=== PATIENT | male | born 1935 | race Caucasian/White ===

== ENCOUNTER 2019-10-03 17:25 | Emergency (ER) | payer MEDICARE, SELFPAY ==
[2019-10-03 17:29] VITALS: BP 124/77; PULSE 91; RESP 18; TEMP 36.2; O2SAT 94; BMI 34.8
--- NOTE | 2019-10-03 17:43 | W.ED.NEUROSD ---
HPI - Neuro Symptoms/Deficit General: Chief Complaint: Neuro Symptoms/Deficit Stated Complaint: eye problems Time Seen by Provider: 10/03/19 17:33 Source: patient History of Present Illness: HPI Narrative: 84-year-old with left-sided facial droop. States that his face looked normal last night. He also tells me that he had the same thing Tuesday but it went away on its own. Denies any confusion difficulty with his gait, weakness or numbness in his extremities. Denies having had a stroke in the past. Associated symptoms: Deny chest pain, headache(s), nausea or vomiting Review of Systems General: Reports: 10 or more systems reviewed and unremarkable except in HPI and below Const: Denies: fever(s) or chills Eyes: Denies: change in vision ENMT: Denies: throat pain Card: Denies: chest pain Resp: Denies: dyspnea GI: Denies: abdominal pain, nausea, vomiting or change in bowel habits Musc: Denies: muscle weakness Skin/Breast: Denies: rash Neuro: Denies: headache(s), lack of coordination, dizziness or Slurred speech present Psych: Denies: hopelessness or suicidal ideation Endo: Denies: polyuria Tam/Lymph: Denies: easy bruising or easy bleeding All/Imm: Denies: urticaria Physical Exam Const: COMMON NORMALS: no acute distress, patient oriented x3, alert and well nourished HENMT: COMMON NORMALS: normocephalic and Normal external nose present HEAD & SCALP: normocephalic NOSE: Normal external nose present MOUTH: no trismus Eye: COMMON NORMALS: EOMs intact bilaterally and conjunctivae normal CONJUNCTIVA: Yes conjunctivae normal Neck/C-Spine: COMMON NORMALS: full ROM, no lymphadenopathy and supple CERVICAL SPINE: Yes cervical ROM normal Lymph: LYMPHATIC: no lymphadenopathy noted Resp: COMMON NORMALS: normal respiratory effort, No retractions, No use of accessory muscles and clear to auscultation bilaterally EFFORT & INSPECTION: Yes able to speak in complete sentences AUSCULTATION: clear to auscultation bilaterally Cardio: COMMON NORMALS: regular rate and regular rhythm RATE: regular rate RHYTHM: regular rhythm GI: COMMON NORMALS: Normal to inspection, nondistended, normoactive bowel sounds present, Soft to palpation, non-tender and no masses INSPECTION: Yes normal to inspection AUSCULTATION: Yes normoactive bowel sounds PALPATION: Yes Soft to palpation, No Guarding due to palpation present (GI) and No Rigid due to palpation Back/Pelvis: OTHER: Normal range of motion Extremity: GENERAL: Yes normal exam except as noted Neuro: COMMON NORMALS: patient oriented x3 SENSORIUM/ORIENTATION: Yes alert SPEECH: speech normal GAIT: Yes Normal gait present MOTOR EXAM: 5/5 motor strength present throughout and Pronator motor function not present OTHER: left sided facial droop with ectropion. forehead also affected with the facial droop Psych: COMMON NORMALS: mental status grossly normal Skin: COMMON NORMALS: no rashes or lesions noted GENERAL SKIN EXAM: no rashes or lesions noted Course Vital Signs: Vital signs: Vital Signs Temperature 97.2 F L 10/03/19 17:29 Pulse Rate 104 H 10/03/19 19:06 Respiratory Rate 16 10/03/19 19:06 Blood Pressure 118/65 10/03/19 19:06 Pulse Oximetry 94 10/03/19 19:06 MDM - Neuro Symptoms/Deficit MDM Narrative: Medical decision making narrative: Patient has no other symptoms other than his left facial droop that was there Tuesday and then resolved on its own and returned this morning. I explained that that his exam is very difficult to differentiate between Lakhani's palsy and stroke especially since have never seen Lakhani's palsy go away completely and then return a day or 2 later. Offered admission and not only did I offer admission I highly stressed admission for stroke work-up which he adamantly refuses. He would like to sign out AMA and states that he is absolutely not staying in the hospital and that his is [facility] and needs to get home. He understands and I stressed that he could if this is a stroke and he still will not stay. He does have a friend here with him who will be there at [address] him home tonight. I told the patient if he changes his mind at any time to return or let us know before he actually leaves. He also has renal insufficeny that is worsening Lab Data: Attestation: I reviewed the patient's lab results. Labs: Lab Results 10/03/19 10/03/19 10/03/19 Range/Units 18:48 18:48 18:48 WBC 9.9 (4.0-10.0) 10^3/ uL RBC 6.09 H (4.1-5.3) 10^6/u L Hgb 17.7 H (11.7-16.6) g/dL Hct 55.4 H (42.0-52.0) % MCV 91.0 (80-94) fL MCH 29.1 (28.0-34.0) pg MCHC 31.9 (30.0-36.0) g/dL RDW 13.3 (12.1-15.1) % Plt Count 258 (130-400) 10^3/c mm MPV 9.4 (7.4-10.4) fL Neut % (Auto) 78.7 % Lymph % (Auto) 12.4 % [place] % (Auto) 7.5 % Eos % (Auto) 0.4 % Baso % (Auto) 0.6 % Neut # (Auto) 7.78 H (1.8-7.7) 10^3/u L Lymph # (Auto) 1.2 (0.8-4.8) 10^3/u L [place] # (Auto) 0.7 (0.2-0.9) 10^3/u L Eos # (Auto) 0.0 (0.0-0.8) 10^3/u L Baso # (Auto) 0.1 (0.0-0.1) 10^3/u L Nucleated RBC % (a uto) 0 % Nucleated RBCs # 0.0 /100WBC PT 13.60 H (10.5-13.3) SECO NDS INR 1.01 (0.8-1.2) Sodium 135 L (136-145) mmol/L Potassium 4.4 (3.5-5.1) mmol/L Chloride 100 (98-107) mmol/L Carbon Dioxide 25 (22-29) mmol/L Anion Gap 14.4 (5-19) BUN 27 H (8-23) mg/dL Creatinine 2.0 H (0.7-1.2) mg/dL Glucose 187 H (65-115) mg/dL Calculated Osmolal ity 282 L (285-295) mOsm/k g Calcium 10.0 (8.5-10.5) mg/dL Total Bilirubin 1.1 (0.15-1.2) mg/dL AST 23 (0-40) U/L ALT 23 (0-41) U/L Alkaline Phosphata se 85 (40-130) IU/L Total Protein 7.3 (6.6-8.7) g/dL Albumin 4.8 (3.5-5.2) g/dL Globulin 2.5 (1.3-4.6) g/dL Imaging Data^: CT Head: Radiologist's impression: CT Scan Report Signed Patient: Wei Locke #: [id number] : 1936Acct#:[id number] Age/Sex: 84 / MADM Date: 10/03/19 Loc: ERRoom/Bed: Attending Dr: Ordering Provider/Ordering MD: Poppy Kurtz MD Date of Service: 10/03/19 Procedure(s): CT head wo con* [id number] Accession Number(s): [id number] Report Number: [id number] PROCEDURE INFORMATION: Exam: CT Head Without Contrast Exam date and time: 10/03/2019 5:45 PM Age: 84 years old Clinical indication: Weakness, facial; Additional info: Symptoms of acute stroke TECHNIQUE: Imaging protocol: Computed tomography of the head without contrast. Radiation optimization: All CT scans at this facility use at least one of these dose optimization techniques: automated exposure control; mA and/or kV adjustment per patient size (includes targeted exams where dose is matched to clinical indication); or iterative reconstruction. COMPARISON: CT head wo con* [id number] 04/17/2018 7:35 AM RADIATION DOSE METRICS: Total DLP (mGy-cm): 882.99 FINDINGS: Brain: Moderate diffuse cortical volume loss. Mild hypodensities in supratentorial periventricular and subcortical white matter. No intracranial hemorrhage. Ventricles: Normal. No ventriculomegaly. Bones/joints: Unremarkable. No acute fracture. Sinuses: Visualized sinuses are unremarkable. No fluid levels. Mastoid air cells: Visualized mastoid air cells are well aerated. Vasculature: No hyperdense artery. Soft tissues: Unremarkable. CT/CT head wo con* [id number] IMPRESSION: 1. No acute intracranial abnormality. 2. Mild microangiopathy. Radiation Dose CTDIVOL = (mGy): DLP = 882.99 (mGy-cm) Dictated By:Chidi Rodriguez Signed By:Chidi RodriguezSignfredy Date/Time:10/03/191831 DD/ 29 EKG Data^: EKG 1: Attestation: I personally reviewed and interpreted this EKG as follows: EKG interpretation date: 10/03/19 EKG interpretation time: 18:34 Interpretation: Sinus rhythm rate [address] changes no acute ST elevation Discharge Plan Discharge Patient Disposition: Left Against Medical Advice Clinical Impression: Facial droop, Lakhani's palsy, Azotemia Condition: Stable Prescriptions: No Action quetiapine [Seroquel] 50 mg tablet 50 mg PO DAILY Qty: 30 RF: 5 citalopram 40 mg tablet 40 mg PO DAILY RF: 0 donepezil 10 mg tablet 10 mg PO DAILY RF: 0 amlodipine 2.5 mg tablet 2.5 mg PO DAILY RF: 0 clopidogrel 75 mg tablet 75 mg PO DAILY RF: 0 lovastatin 10 mg tablet 10 mg PO DAILY RF: 0 allopurinol 300 mg tablet 300 mg PO DAILY RF: 0 metformin 500 mg tablet extended release 24 hr 500 mg PO DAILY RF: 0 lisinopril 2.5 mg tablet 2.5 mg PO DAILY RF: 0 Referrals: Heather Bello MD [Primary Care Provider] - Patient Instructions: Lakhani's Palsy, Ischemic Stroke (GEN), Impaired Kidney Function (ED) Activity Restrictions/Additional Instructions: call Dr Bello's office in the morning for follow up appointment as soon as possible. Return to the ER at anytime if worse in any way. Coding Level of Care Code ED System Support Developer for Jose Alejandrog Fwd Exam Comprehensive
--- NOTE | 2019-10-03 18:14 | ECG_ITS ---
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 Measurements Intervals [place] Rate: 80 P: 33 NE: 189 QRS: -5 QRSD: 120 T: -37 QT: 385 QTc: 446 Interpretive Statements SINUS RHYTHM INFERIOR MYOCARDIAL INFARCTION , OF INDETERMINATE AGE [40+ ms Q WAVE AND/OR ST/T ABNORMALITY IN II/aVF] ANTEROLATERAL MYOCARDIAL INFARCTION , OF INDETERMINATE AGE [40+ ms Q WAVE IN I/aVL/V3-V6] Compared to ECG 04/17/2018 14:43:48 No significant changes Electronically Signed On 10-03-2019 22:36:26 CDT by Stephanie Turpin M.D. [email or web address] SourceEvtronuniversity hospitals st[facility].[employer]/store/NU/[id number] f
--- NOTE | 2019-10-03 18:14 | XR_ITS ---
WS: [id number] Portable AP upright chest, 10/03/2019 Clinical Data: left facial droop Comparison: Portable chest, 04/17/2018. Findings: No nodules, masses or effusions are seen. The heart is enlarged. The pulmonary vascularity is not increased. No pneumonia or pneumothorax is seen. XR/XR chest 1V portable [id number] Impression: Cardiomegaly.
[2019-10-03 18:54] LABS: Basophils # 0.1 10^3/uL (0.0-0.1); Basophils % 0.6 %; Eosinophils % 0.4 %; Hematocrit 55.4 % (42.0-52.0); Hemoglobin 17.7 g/dL (11.7-16.6); Lymphocytes # 1.2 10^3/uL (0.8-4.8); Lymphocytes % 12.4 %; Mean Corpuscular HGB Conc 31.9 g/dL (30.0-36.0); Mean Corpuscular Hemoglobin 29.1 pg (28.0-34.0); Mean Platelet Volume 9.4 fL (7.4-10.4); Monocytes # 0.7 10^3/uL (0.2-0.9); Monocytes % 7.5 %; Neutrophils # 7.78 10^3/uL (1.8-7.7); Neutrophils % 78.7 %; Nucleated Red Blood Cells % 0 %; Platelet Count 258 10^3/cmm (130-400); Red Blood Count 6.09 10^6/uL (4.1-5.3); Red Cell Distribution Width 13.3 % (12.1-15.1); White Blood Count 9.9 10^3/uL (4.0-10.0)
[2019-10-03 19:06] VITALS: BP 118/65; PULSE 104; RESP 16; O2SAT 94
[2019-10-03 19:06] LABS: INR 1.01 (0.8-1.2)
[2019-10-03 19:10] LABS: Alanine Aminotransferase 23 U/L (0-41); Albumin Level 4.8 g/dL (3.5-5.2); Alkaline Phosphatase 85 IU/L (40-130); Anion Gap 14.4 (5-19); Aspartate Amino Transferase 23 U/L (0-40); Blood Urea Nitrogen 27 mg/dL (8-23); Carbon Dioxide 25 mmol/L (22-29); Chloride 100 mmol/L (98-107); Globulin 2.5 g/dL (1.3-4.6); Glucose 187 mg/dL (65-115); Osmolality Calculated 282 mOsm/kg (285-295); Potassium 4.4 mmol/L (3.5-5.1); Sodium 135 mmol/L (136-145); Total Bilirubin 1.1 mg/dL (0.15-1.2); Total Protein 7.3 g/dL (6.6-8.7)
== END 2019-10-03 20:52 | disposition left against medical advice (07) ==
PROVIDERS: Emergency Provider Emergency Medicine; PCP Family Medicine
DX: G51.0 Bell's palsy (principal); R79.89 Other specified abnormal findings of blood chemistry; Z79.02 Long term (current) use of antithrombotics/antiplatelets
CPT/HCPCS: 12345; 36415; 70450; 71045; 80053; 85025; 85610; 93005; 99282; 99284

== ENCOUNTER 2020-02-11 16:57 | Inpatient (IN) | payer MEDICARE, SELFPAY ==
[2020-02-11 17:32] VITALS: BP 138/82; PULSE 96; RESP 14; TEMP 37.3; O2SAT 91; BMI 33.9
--- NOTE | 2020-02-11 18:20 | PC.NURSE ---
NOTIFIED CLINICAL ESTHETICIAN OF CONCERNS IN REGARDS TO PATIENT WHILE PT IN WAITING ROOM
--- NOTE | 2020-02-11 19:49 | CTR_ITS ---
PROCEDURE INFORMATION: Exam: CT Head Without Contrast Exam date and time: 02/11/2020 8:08 PM Age: 84 years old Clinical indication: Injury or trauma; Fall; Blunt trauma (contusions or hematomas); Altered mental status/memory loss; Additional info: AMS TECHNIQUE: Imaging protocol: Computed tomography of the head without contrast. Radiation optimization: All CT scans at this facility use at least one of these dose optimization techniques: automated exposure control; mA and/or kV adjustment per patient size (includes targeted exams where dose is matched to clinical indication); or iterative reconstruction. COMPARISON: CT head wo con* [id number] 10/03/2019 5:47 PM RADIATION DOSE METRICS: Total DLP (mGy-cm): 904.65 FINDINGS: Brain: No evidence of active or acute intracranial pathologic process, hemorrhage, or trauma. No visible evidence of diffuse cerebral edema or generalized demyelination. Atrophic changes not inconsistent with the patient's chronological age. Mild small vessel ischemic disease with senile periventricular leukomalacia. No midline shift. No mass effect. Cerebral ventricles: No ventriculomegaly. Bones/joints: Unremarkable. No acute fracture. Paranasal sinuses: Visualized sinuses are unremarkable. No fluid levels. Mastoid air cells: Visualized mastoid air cells are well aerated. Soft tissues: Unremarkable. CT/CT head wo con* [id number] IMPRESSION: No evidence of active or acute intracranial pathologic process, hemorrhage, or trauma. Radiation Dose CTDIVOL = (mGy): DLP = 904.65 (mGy-cm)
--- NOTE | 2020-02-11 19:49 | XR_ITS ---
WS: [id number] XR chest 1V portable [id number] REASON FOR EXAM: wheezing FINDINGS: The chest is unchanged compared to 10/03/2019. There is moderate tortuosity of the thoracic aorta. Mediastinum appears prominent, likely due to exce ss mediastinal fat. No active pulmonary parenchymal pleural disease is noted. Mild to moderate changes of degenerative spondylosis in the mid and lower thoracic spine. XR/XR chest 1V portable [id number] IMPRESSION: No acute chest abnormality.
--- NOTE | 2020-02-11 19:49 | XR_ITS ---
WS: [id number] XR foot RT min 3V* [id number] REASON FOR EXAM: pain with fall FINDINGS: In the right forefoot there is narrowing of the joint spaces with subarticular sclerosis in the DIP a nd MIP joints of the second through the fifth toes. Similar but milder changes are seen in the joints of the right great toe. No fracture or focal bony abnormality in the forefoot. In the midfoot there is narrowing of the joint space with subarticular sclerosis involving the talona vicular joint. No fracture or focal bony lesion. In the hindfoot there are noted to be small to moderate sized enthesophytes of the Achilles tendon in sertion and plantar fascial insertion on the calcaneus. No fracture or other focal bone lesion. There is an oblique fracture through the distal right fibula at the level of the syndesmosis between the fibula and tibia. XR/XR foot RT min 3V* [id number] IMPRESSION: Degenerative changes in the right foot. Oblique fracture of the right fibula as above.
--- NOTE | 2020-02-11 19:51 | ECG_ITS ---
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1935 Requested By: Trent Quezada Order Number: [id number] Diego MD: RANJAN GRIFFITH Measurements Intervals [place] Rate: 89 P: 33 KS: 183 QRS: 5 QRSD: 124 T: -32 QT: 361 QTc: 441 Interpretive Statements SINUS RHYTHM WITH SINUS ARRHYTHMIA INFERIOR MYOCARDIAL INFARCTION , OF INDETERMINATE AGE [40+ ms Q WAVE AND/OR ST/T ABNORMALITY IN II/aVF] ANTEROLATERAL MYOCARDIAL INFARCTION , OF INDETERMINATE AGE [40+ ms Q WAVE IN I/aVL/V3-V6] Compared to ECG 02/11/2020 20:13:41 No significant changes Electronically Signed On 02-14-2020 15:29:03 ACQUISITION PROFESSIONAL by RANJAN GRIFFITH [email or web address] [email or web address] medical [email or web address] Contactgalion [facility].Abril/store/[id number]
--- NOTE | 2020-02-11 19:52 | ED_ITS ---
HPI - General Adult General: Chief complaint: General Medical Stated complaint: FALL Time Seen by Provider: 02/11/20 19:32 History of Present Illness: HPI narrative: Patient is an 84-year-old male who comes to the ED via EMS after having a fall. Patient has altered mental status as well. Patient's daughter came up to the ED and told me that patient had a fall while walking into her house today. Denies any loss of consciousness but did say patient was having pain in right foot. Daughter did say that patient's mental status does appear different than normal. She did state that she thinks he is starting develop Alzheimer's and told me that patient does have a family history of Alzheimer's and some of his siblings developed Alzheimer's. Daughter says patient lives at home with his . Associated symptoms: Reports confusion; Deny chest pain, dyspnea, headache(s), nausea, rash, palpitations or vomiting Review of Systems Const: Denies: fever(s), chills or fatigue Eyes: Denies: change in vision or eye discomfort ENMT: Denies: throat pain, odynophagia, nasal discharge or nasal congestion Card: Denies: chest pain, palpitations, edema, swelling of feet/ankles, dyspnea on exertion or orthopnea Resp: Denies: dyspnea, productive cough or non-productive cough GI: Denies: abdominal pain, nausea, vomiting, diarrhea, constipation or hematochezia : Denies: flank pain, difficulty urinating, dysuria or hematuria Musc: Reports: extremity pain (left foot pain); Denies: neck pain, back pain or extremity swelling Skin/Breast: Denies: rash or new lesions Neuro: Reports: confusion; Denies: headache(s), numbness in extremities or weakness in extremities Physical Exam Const: COMMON NORMALS: alert (Patient is alert and will answer and respond to questions) HENMT: COMMON NORMALS: normocephalic HEAD & SCALP: normocephalic MOUTH: Normal oral and palatal mucosa present THROAT: posterior oropharynx normal and uvula midline Neck/C-Spine: COMMON NORMALS: supple GENERAL: Yes normal visual inspection Resp: COMMON NORMALS: normal respiratory effort, No retractions, No use of accessory muscles and clear to auscultation bilaterally AUSCULTATION: clear to auscultation bilaterally and wheezes scattered wheezes Cardio: COMMON NORMALS: regular rate, regular rhythm, S1 normal heart sound present, S2 normal heart sound present, No gallops present (Cardio), No clicks present (Cardio), No murmurs present (Cardio) and Peripheral pulses 2+ throughout RATE: regular rate RHYTHM: regular rhythm HEART SOUNDS: S1 normal heart sound present and S2 normal heart sound present PERIPHERAL PULSES: Peripheral pulses 2+ throughout GI: COMMON NORMALS: Normal to inspection, nondistended, normoactive bowel sounds present, Soft to palpation, non-tender and no masses PALPATION: Yes Soft to palpation : COMMON NORMALS: Yes no CVA tenderness BLADDER/KIDNEY EXAM: Yes no CVA tenderness Back/Pelvis: COMMON NORMALS: no CVA tenderness Extremity: RIGHT LOWER EXTREMITY: Yes foot & digits Right ankle: Yes inspection (No visible deformity seen. Mild edema and some ecchymosis seen in the foot), Yes palpation (Tender to palpation over lateral malleolus), Yes ROM (Fall with limited pain) and Yes neurovascular exam (Neurovascular intact and pedal pulse 2+) Neuro: SENSORIUM/ORIENTATION: Yes alert (Patient is alert and will answer and respond to questions), Yes Orientation impaired (Patient knows name and date of . He is confused and does no orientati) and Yes other (Patient appears confused and has trouble answering questions accordingly.) Skin: GENERAL SKIN EXAM: dry skin Course Vital Signs: Vital signs: Vital Signs Temperature 99.1 F 02/11/20 17:32 Pulse Rate 95 02/12/20 00:54 Respiratory Rate 18 02/12/20 00:54 Blood Pressure 146/83 02/12/20 00:54 Pulse Oximetry 92 02/12/20 00:54 MDM - General Adult MDM Narrative: Medical decision making narrative: Patient is an 84-year-old male who comes to the ED with right foot pain after having a fall. Patient is also having altered mental status as well. He knows his name and date of but all other orientation questions he cannot answer. I spoke with daughter about patient's case and she lives with her parents and helps take care of them. She says that he has the start of Alzheimer's, but current mental status appears worse than usual. X-ray of right foot showed a nondisplaced distal fibula fracture. Due to patient's mental status and injury I did not feel comfortable sending him home. I contacted hospitalist and told her about patient case. Patient will be admitted and she wanted me to order rapid Covid test and CPK on patient. I talked to Dr. Stein and he will be placing the admitting orders. Lab Data: Attestation: I reviewed the patient's lab results. Labs: Lab Results 02/11/20 02/11/20 02/11/20 Range/Units 19:49 20:01 20:01 WBC 4.6 (4.0-10.0) 10^3/ uL RBC 5.81 H (4.1-5.3) 10^6/u L Hgb 16.8 H (11.7-16.6) g/dL Hct 52.3 H (42.0-52.0) % MCV 90.0 (80-94) fL MCH 28.9 (28.0-34.0) pg MCHC 32.1 (30.0-36.0) g/dL RDW 13.2 (12.1-15.1) % Plt Count 145 (130-400) 10^3/c mm MPV 9.5 (7.4-10.4) fL Neut % (Auto) 74.8 % Lymph % (Auto) 11.3 % [place] % (Auto) 13.3 % Eos % (Auto) 0.0 % Baso % (Auto) 0.4 % Neut # (Auto) 3.43 (1.8-7.7) 10^3/u L Lymph # (Auto) 0.5 L (0.8-4.8) 10^3/u L [place] # (Auto) 0.6 (0.2-0.9) 10^3/u L Eos # (Auto) 0.0 (0.0-0.8) 10^3/u L Baso # (Auto) 0.0 (0.0-0.1) 10^3/u L Nucleated RBC % (a uto) 0 % Nucleated RBCs # 0.0 /100WBC Sodium 139 (136-145) mmol/L Potassium 4.3 (3.5-5.1) mmol/L Chloride 100 (98-107) mmol/L Carbon Dioxide 29 (22-29) mmol/L Anion Gap 14.3 (5-19) BUN 20 (8-23) mg/dL Creatinine 1.3 H (0.7-1.2) mg/dL GFR Calculation Not Reportable Glucose 200 H (65-115) mg/dL Calculated Osmolal ity 296 H (285-295) mOsm/k g Lactic Acid (0.5-2.2) mmol/L Calcium 8.9 (8.5-10.5) mg/dL Total Bilirubin 0.6 (0.15-1.2) mg/dL AST 26 (0-40) U/L ALT 19 (0-41) U/L Alkaline Phosphata se 86 (40-130) IU/L Creatine Kinase 167 (39-308) U/L Troponin T Baselin e (0-15) ng/L Troponin T 120 Min attila (0-15) ng/L Delta Troponin T (0-10) ABS# NT-Pro-B Natriuret Pep (0-450) pg/mL Total Protein 6.4 L (6.6-8.7) g/dL Albumin 4.3 (3.5-5.2) g/dL Globulin 2.1 (1.3-4.6) g/dL Urine Color (Yellow) Urine Appearance (CLEAR) Urine pH (5-7) Ur Specific Gravit y (1.005-1.030) Urine Protein (Negative) Urine Glucose (UA) (Normal) Urine Ketones (Negative) Urine Blood (Negative) Urine Nitrate (Negative) Urine Bilirubin (Negative) Urine Urobilinogen (Negative) mg/dL Ur Leukocyte Tayler ase (Negative) Urine RBC (0-2) /hpf Urine WBC (0-5) /hpf Ur Squamous Epith Cells (0-5) /hpf Amorphous Sediment Urine Bacteria (NONE) /hpf 02/11/20 02/11/20 02/11/20 Range/Units 20:01 20:01 20:01 WBC (4.0-10.0) 10^3/ uL RBC (4.1-5.3) 10^6/u L Hgb (11.7-16.6) g/dL Hct (42.0-52.0) % MCV (80-94) fL MCH (28.0-34.0) pg MCHC (30.0-36.0) g/dL RDW (12.1-15.1) % Plt Count (130-400) 10^3/c mm MPV (7.4-10.4) fL Neut % (Auto) % Lymph % (Auto) % [place] % (Auto) % Eos % (Auto) % Baso % (Auto) % Neut # (Auto) (1.8-7.7) 10^3/u L Lymph # (Auto) (0.8-4.8) 10^3/u L [place] # (Auto) (0.2-0.9) 10^3/u L Eos # (Auto) (0.0-0.8) 10^3/u L Baso # (Auto) (0.0-0.1) 10^3/u L Nucleated RBC % (a uto) % Nucleated RBCs # /100WBC Sodium (136-145) mmol/L Potassium (3.5-5.1) mmol/L Chloride (98-107) mmol/L Carbon Dioxide (22-29) mmol/L Anion Gap (5-19) BUN (8-23) mg/dL Creatinine (0.7-1.2) mg/dL GFR Calculation Glucose (65-115) mg/dL Calculated Osmolal ity (285-295) mOsm/k g Lactic Acid 1.2 (0.5-2.2) mmol/L Calcium (8.5-10.5) mg/dL Total Bilirubin (0.15-1.2) mg/dL AST (0-40) U/L ALT (0-41) U/L Alkaline Phosphata se (40-130) IU/L Creatine Kinase (39-308) U/L Troponin T Baselin e 24 H (0-15) ng/L Troponin T 120 Min attila (0-15) ng/L Delta Troponin T (0-10) ABS# NT-Pro-B Natriuret Pep 169 (0-450) pg/mL Total Protein (6.6-8.7) g/dL Albumin (3.5-5.2) g/dL Globulin (1.3-4.6) g/dL Urine Color (Yellow) Urine Appearance (CLEAR) Urine pH (5-7) Ur Specific Gravit y (1.005-1.030) Urine Protein (Negative) Urine Glucose (UA) (Normal) Urine Ketones (Negative) Urine Blood (Negative) Urine Nitrate (Negative) Urine Bilirubin (Negative) Urine Urobilinogen (Negative) mg/dL Ur Leukocyte Tayler ase (Negative) Urine RBC (0-2) /hpf Urine WBC (0-5) /hpf Ur Squamous Epith Cells (0-5) /hpf Amorphous Sediment Urine Bacteria (NONE) /hpf 02/11/20 02/11/20 Range/Units 21:33 22:39 WBC (4.0-10.0) 10^3/ uL RBC (4.1-5.3) 10^6/u L Hgb (11.7-16.6) g/dL Hct (42.0-52.0) % MCV (80-94) fL MCH (28.0-34.0) pg MCHC (30.0-36.0) g/dL RDW (12.1-15.1) % Plt Count (130-400) 10^3/c mm MPV (7.4-10.4) fL Neut % (Auto) % Lymph % (Auto) % [place] % (Auto) % Eos % (Auto) % Baso % (Auto) % Neut # (Auto) (1.8-7.7) 10^3/u L Lymph # (Auto) (0.8-4.8) 10^3/u L [place] # (Auto) (0.2-0.9) 10^3/u L Eos # (Auto) (0.0-0.8) 10^3/u L Baso # (Auto) (0.0-0.1) 10^3/u L Nucleated RBC % (a uto) % Nucleated RBCs # /100WBC Sodium (136-145) mmol/L Potassium (3.5-5.1) mmol/L Chloride (98-107) mmol/L Carbon Dioxide (22-29) mmol/L Anion Gap (5-19) BUN (8-23) mg/dL Creatinine (0.7-1.2) mg/dL GFR Calculation Glucose (65-115) mg/dL Calculated Osmolal ity (285-295) mOsm/k g Lactic Acid (0.5-2.2) mmol/L Calcium (8.5-10.5) mg/dL Total Bilirubin (0.15-1.2) mg/dL AST (0-40) U/L ALT (0-41) U/L Alkaline Phosphata se (40-130) IU/L Creatine Kinase (39-308) U/L Troponin T Baselin e (0-15) ng/L Troponin T 120 Min attila 28.29 H (0-15) ng/L Delta Troponin T 4.29 (0-10) ABS# NT-Pro-B Natriuret Pep (0-450) pg/mL Total Protein (6.6-8.7) g/dL Albumin (3.5-5.2) g/dL Globulin (1.3-4.6) g/dL Urine Color Yellow (Yellow) Urine Appearance Clear (CLEAR) Urine pH 5.0 (5-7) Ur Specific Gravit y 1.025 (1.005-1.030) Urine Protein 1+ H (Negative) Urine Glucose (UA) Norm (Normal) Urine Ketones Negative (Negative) Urine Blood Neg (Negative) Urine Nitrate Negative (Negative) Urine Bilirubin Neg (Negative) Urine Urobilinogen Norm (Negative) mg/dL Ur Leukocyte Tayler ase Negative (Negative) Urine RBC None (0-2) /hpf Urine WBC None (0-5) /hpf Ur Squamous Epith Cells None (0-5) /hpf Amorphous Sediment Not Reportable Urine Bacteria Trace (NONE) /hpf Imaging Data^: CT Head: Attestation: I personally reviewed and interpreted this imaging study as follows: Radiologist's impression: [place] [address] CT Scan Report Signed Patient: Wei Locke Unit #: [id number] : 1935 Age/Sex: 84 / M ADM Date: 02/11/20 Loc: ER Room/Bed: Attending Dr: Ordering Provider/Ordering MD: Trent Quezada Date of Service: 02/11/20 Procedure(s): CT head wo con* [id number] Accession Number(s): [id number] Report Number: [id number] PROCEDURE INFORMATION: Exam: CT Head Without Contrast Exam date and time: 02/11/2020 8:08 PM Age: 84 years old Clinical indication: Injury or trauma; Fall; Blunt trauma (contusions or hematomas); Altered mental status/memory loss; Additional info: AMS TECHNIQUE: Imaging protocol: Computed tomography of the head without contrast. Radiation optimization: All CT scans at this facility use at least one of these dose optimization techniques: automated exposure control; mA and/or kV adjustment per patient size (includes targeted exams where dose is matched to clinical indication); or iterative reconstruction. COMPARISON: CT head wo con* [id number] 10/03/2019 5:47 PM RADIATION DOSE METRICS: Total DLP (mGy-cm): 904.65 FINDINGS: Brain: No evidence of active or acute intracranial pathologic process, hemorrhage, or trauma. No visible evidence of diffuse cerebral edema or generalized demyelination. Atrophic changes not inconsistent with the patient's chronological age. Mild small vessel ischemic disease with senile periventricular leukomalacia. No midline shift. No mass effect. Cerebral ventricles: No ventriculomegaly. Bones/joints: Unremarkable. No acute fracture. Paranasal sinuses: Visualized sinuses are unremarkable. No fluid levels. Mastoid air cells: Visualized mastoid air cells are well aerated. Soft tissues: Unremarkable. CT/CT head wo con* [id number] IMPRESSION: No evidence of active or acute intracranial pathologic process, hemorrhage, or trauma. Radiation Dose CTDIVOL = (mGy): DLP = 904.65 (mGy-cm) Dictated By: Sheldon Eden Signed By: Sheldon Eden Signed Date/Time: 02/11/202034 DD/ 32 Xray Ortho: Attestation: I personally reviewed and interpreted this imaging study as fo llows: My impression: Left foot x-ray?nondisplaced distal fibula fracture. EKG Data^: EKG 1: Attestation: I personally reviewed and interpreted this EKG as follows: EKG interpretation date: 02/11/20 Interpretation: Sinus rhythm with second-degree A-V block Mobitz type II, [address] segment elevation or depression seen. EKG compared to EKG done on 10/03/2019. No acute changes seen. Computer generated interpretation: Head CT 02/11/20 19:49 IMPRESSION: No evidence of active or acute intracranial pathologic process, hemorrhage, or trauma. Radiation Dose CTDIVOL = (mGy): DLP = 904.65 (mGy-cm) Discharge Plan Discharge Admit Provider: Rizwana Ling Condition: Good Coding Level of Care Code ED Cnc Machine Operator for Chg Fwd Exam Comprehensive
[2020-02-11 20:11] LABS: Basophils % 0.4 %; Hematocrit 52.3 % (42.0-52.0); Hemoglobin 16.8 g/dL (11.7-16.6); Lymphocytes # 0.5 10^3/uL (0.8-4.8); Lymphocytes % 11.3 %; Mean Corpuscular HGB Conc 32.1 g/dL (30.0-36.0); Mean Corpuscular Hemoglobin 28.9 pg (28.0-34.0); Mean Platelet Volume 9.5 fL (7.4-10.4); Monocytes # 0.6 10^3/uL (0.2-0.9); Monocytes % 13.3 %; Neutrophils # 3.43 10^3/uL (1.8-7.7); Neutrophils % 74.8 %; Nucleated Red Blood Cells % 0 %; Platelet Count 145 10^3/cmm (130-400); Red Blood Count 5.81 10^6/uL (4.1-5.3); Red Cell Distribution Width 13.2 % (12.1-15.1); White Blood Count 4.6 10^3/uL (4.0-10.0)
[2020-02-11 20:37] LABS: Lactic Sepsis W/Reflex 1.2 mmol/L (0.5-2.2)
[2020-02-11 20:38] LABS: Alanine Aminotransferase 19 U/L (0-41); Albumin Level 4.3 g/dL (3.5-5.2); Alkaline Phosphatase 86 IU/L (40-130); Anion Gap 14.3 (5-19); Aspartate Amino Transferase 26 U/L (0-40); Blood Urea Nitrogen 20 mg/dL (8-23); Calcium 8.9 mg/dL (8.5-10.5); Carbon Dioxide 29 mmol/L (22-29); Chloride 100 mmol/L (98-107); Globulin 2.1 g/dL (1.3-4.6); Glucose 200 mg/dL (65-115); Osmolality Calculated 296 mOsm/kg (285-295); Potassium 4.3 mmol/L (3.5-5.1); Sodium 139 mmol/L (136-145); Total Bilirubin 0.6 mg/dL (0.15-1.2); Total Protein 6.4 g/dL (6.6-8.7)
[2020-02-11 20:40] LABS: Troponin(5th) Baseline 24 ng/L (0-15)
[2020-02-11 21:31] LABS: NT Pro B Type Natriuretic Pept 169 pg/mL (0-450)
--- NOTE | 2020-02-11 21:51 | ECG_ITS ---
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: : 1935 Requested By: Trent Quezada Order Number: [id number] Diego MD: RANJAN GRIFFITH Measurements Intervals [place] Rate: 82 P: MO: QRS: 3 QRSD: 122 T: -36 QT: 359 QTc: 421 Interpretive Statements SINUS RHYTHM WITH 2ND DEGREE AV BLOCK, 2:1 OR MOBITZ TYPE II INFERIOR MYOCARDIAL INFARCTION , OF INDETERMINATE AGE [40+ ms Q WAVE AND/OR ST/T ABNORMALITY IN II/aVF] ANTEROLATERAL MYOCARDIAL INFARCTION , OF INDETERMINATE AGE [40+ ms Q WAVE IN I/aVL/V3-V6] CRITICAL TEST RESULT Compared to ECG 10/03/2019 18:39:15 No significant changes Electronically Signed On 02-14-2020 15:35:05 HAND RUG BRAIDER by RANJAN GRIFFITH [id number]
[2020-02-11 22:38] LABS: Bacteria Urine TRACE /hpf; Bilirubin Urine Neg (Negative); Blood Urine Neg (Negative); Glucose Urine UA Norm (Normal); Ketones Urine Negative (Negative); Leukocyte Esterase Urine Negative (Negative); Nitrate Urine Negative (Negative); Protein Urine 1+ (Negative); Specific Gravity, Urine 1.025 (1.005-1.030); Urine Appearance Clear (CLEAR); Urine Color Yellow (Yellow); Urobilinogen Urine Norm (Negative)
[2020-02-11 22:40] LABS: Add Urine Culture? No
[2020-02-11 23:07] LABS: Troponin 5 2HR 28.29 ng/L (0-15); Troponin 5 2HR Delta 4.29 ABS# (0-10)
[2020-02-11 23:13] VITALS: PULSE 86; RESP 22; O2SAT 96
--- NOTE | 2020-02-11 23:14 | PC.NURSE ---
225 pt is attempting to get up out of bed. pt re-educated client service professional light. pt re-educated on his broken leg and splint and the need to not bear weight on it. Assisted pt with readjusting in bed. pt provided with blanket. 2307 pt is attempting to get up out of bed again. pt re-educated about his broken leg. pt states Well what if I just kick you. pt refuses assistance for repositioning in bed. pt states I need something to drink. pt provided with a drink. pt refuses the drink. pt provided with food. pt refuses food. Nurse remains at bedside to reorient and re-educate. Provider Pilar notified. 2315 pt continues to make further threats including Well I'm just going to pop you in the head. pt later states Well just call the highway patrol. They'll kick you up your ass. pt re-educated on the need to stay non-weight bearing. pt voices concern about his at home getting food to eat. pt informed that his daughter was taking care of food for his per prior phone call with the nurse. Nurse remains at bedside to reorient and re-educate. 232 pt is resting in bed. pt refuses assistance to reposition. Nurse remains at the bedside to reorient and re-educate.
--- NOTE | 2020-02-11 23:24 | PC.NURSE ---
2324 pt requests food. pt provided with food. pt refuses food or repositioning. pt states Get away. Get out of here. I'm in my own house. pt states I've seen some pretty big assholes in my day but you take the cake. pt states How am I supposed to get to the kitchen. pt reports pt repeatedly states I think that foot is broke. pt re-educated on his broken foot and the need to remain non-weight bearing. Nurse remains at bedside to reorient and re-educate. 232 pt states I need up. I'm suffocating. pt refuses repositioning assistance. SpO2 95% on RA. pt offered supplemental O2 via nasal cannula. pt refused. pt refuses to answer questions about location, year, name, or date of . 233 pt refuses assistance with repositioning. pt reoriented and re-educated. pt repeats I think my foot is broken. pt asked if he is in pain or if his foot hurts. pt states I don't know.
--- NOTE | 2020-02-11 23:43 | PC.NURSE ---
2343 pt legs hanging off the end of the bed putting pressure on his broken leg. pt assisted in repositioning in bed. pt refuses food, drink, or blanket at this time. Nurse remains at the bedside to reorient and re-educate. 2346 pt resting in bed. Nurse remains at the bedside. 2349 pt offered food and drink. pt refuses both. 2353 pt re-educated and reoriented. pt still attempting to get out of bed. Provider aware. pt states Well you haven't done anything helpful in your life. Nurse remains at the bedside.
[2020-02-11 23:56] VITALS: PULSE 88; RESP 22; O2SAT 92
--- NOTE | 2020-02-11 23:57 | PC.NURSE ---
2357 pt resting in bed. 0001 pt report given to Kerwin PROCTOR .
[2020-02-12] VITALS (9 sets, daily range): BP systolic 146–169; BP diastolic 80–89; PULSE 74–97; RESP 18–28; TEMP 36.7–37.1; O2SAT 92–99
[2020-02-12 00:28] LABS: Creatine Phosphokinase 167 U/L (39-308)
[2020-02-12] MEDS: ziprasidone 20 mg/mL SDV 10 MG IM (00:41)
--- NOTE | 2020-02-12 00:52 | PC.NURSE ---
patient ripped IV out, bleeding controlled, patient threw IV at this RN, patient still cursing at this RN, VS stable will continue to monitor
--- NOTE | 2020-02-12 00:55 | PC.NURSE ---
patient will not keep O2 NC on, keeps pulling off, VS stable will continue to monitor
[2020-02-12 01:45] LABS: SARS Covid-2 Antigen Positive (Negative)
--- NOTE | 2020-02-12 01:51 | ECG_ITS ---
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
--- NOTE | 2020-02-12 01:51 | P.HP_ITS ---
Providers/Chief Complaint Admitting Physician: Rizwana Ling MD Primary Care Provider: Heather Bello MD Chief Complaint: FALL, ANKLE PAIN History of Present Illness Wei Locke is a 84 year old male who was brought earlier today by his family after sustaining what appears to be a mechanical fall at home while carrying some boxes. Patient is unable to provide any history at this time, family is N/A currently, history obtained by discussion with ERP. He was found to have a non displaced ankle fracture for which his leg has been placed in a splint. His daughter had reported that patient has some history of dementia and has recently been on medication for the same but she was unable to provide details regarding patient's baseline, whether he sun downs, etc. While in the ER, patient was initially noted to be pleasant, though confused, more than baseline per family and later during course of his stay there became increasingly agitated and verbally aggressive. He was disoriented, able to talk in complete sentences such as you dont know what you are taling about , get this nurse off the floor , I will shoot you and then hang , my foot is broken , though these were grossly out of context to the conversation at hand. He stated a few times that he wants to leave, realizing the fact that he is not at his home. He received a dose of Ziprasidone in the ER after which he was uch more calm and cooperative, allowed ER staff to place iv lines, etc. CT head is without acute intracranial events. Admission requeste for observation of mental status and also because family is unable to take patient back home and unable to bring him for outpatient follow ups. COVID Ag was checked anticipating need for SNF &/or possible surgery and returned positive. CXR is without consildation or overt changes. Patient is saturating 94-97% on 2 lpm NC though it has been hard to obtain accurate numbers as he keeps taking the pulse oximetry off. Review of past notes show admission in 03/2018 for delirium. Review of Systems General: Reports: ROS unobtainable due to medical condition Medications/Allergies Home Medications Medication Instructions Recorded Confirmed Last Taken Type quetiapine 50 mg tablet 50 mg PO DAILY #30 tab 05/21/19 02/11/20 10/02/19 Rx allopurinol 300 mg PO DAILY 10/03/19 02/11/20 10/02/19 History amlodipine 2.5 mg PO DAILY 10/03/19 02/11/20 10/02/19 History citalopram 40 mg PO DAILY 10/03/19 02/11/20 10/02/19 History clopidogrel 75 mg PO DAILY 10/03/19 02/11/20 10/02/19 History donepezil 10 mg PO DAILY 10/03/19 02/11/20 10/03/19 History lisinopril 2.5 mg PO DAILY 10/03/19 02/11/20 10/02/19 History lovastatin 10 mg PO DAILY 10/03/19 02/11/20 10/02/19 History metformin 500 mg PO DAILY 10/03/19 02/11/20 10/02/19 History Allergies Allergy/AdvReac Type Severity Reaction Status Date / Time No Known Allergies Allergy Verified 10/03/19 18:11 PFSH Acute PFSH: Medical History (Updated 02/12/20 @ 06:38 by Rziwana Ling MD) Alzheimer's dementia CKD (chronic kidney disease) Diabetes Hyperlipidemia Hypertension Family History (Updated 02/12/20 @ 06:24 by Rizwana Ling MD) Other Dementia Social History (Updated 02/12/20 @ 06:24 by Rizwana Ling MD) Smoking and tobacco status: unknown if ever smoked Vitals/I&O/Wt Last Vital Signs Temp 99.1 F 02/11/20 17:32 Pulse 95 02/12/20 00:54 Resp 18 02/12/20 00:54 BP 146/83 02/12/20 00:54 Pulse Ox 92 02/12/20 00:54 Weight last 48 hrs Weight 113.398 kg Physical Exam Narrative: EXAM NARRATIVE: GEN: Awake, disoriented as above in HPI CVS: S1S2 N RS: CTA B/L all areas Abd: Did not allow examination SENIOR ELECTRONICS TECHNICIAN: moves all extremities in bed Data : 02/11/20 20:01 02/11/20 20:01 Micro: Microbiology 02/11/20 20:01 Blood Culture - Preliminary Blood SPECIMEN COLLECTED A&P Assessment and plan (1) Acute delirium: Acute delirium of unclear etiology Unclear baseline, if has h/o sundowning Appears to be better after being given Markos Previous h/o similar admission in Mar 2018 for acute delirium which responded to medication changes May be secondary to acute infection from Covid 19 CXR without acute infiltrates per my read, awaiting radiology interpretation Continue seroquel and citalopram , added haldol prn Status: Acute (2) Ankle fracture: non displaced fibular fracture per my interpretation Awaitng radiological interpretation Ortho consult in morning to evalute Splint placed in the ER Status: Acute Qualifiers: Encounter type: initial encounter Fracture type: closed Laterality: unspecified laterality Qualified Code(s): S82.899A - Other fracture of unspecified lower leg, initial encounter for closed fracture (3) COVID-19: No fever, no current infiltrates on CXR per my interpretation awaiting radiology read intermittently on 2lpm NC, unable to get good assessment due to agitation Start Zinc/vit C, Advair inhaler, If infiltrates noted to be developing or worsening 02, may start Remdisivir check CRP, D dimer, LDH, Ferritin Status: Acute (4) Hypertension: Status: Acute (5) Hyperlipidemia: Status: Acute (6) Alzheimer's dementia: Unknown Baseline Status: Acute (7) Diabetes: insulin sliding scale Status: Acute (8) CKD (chronic kidney disease): Status: Acute Attestations Medical Necessity Statement*: >2midnight admission for management of acute delirium, ankle fracture, COVID 19 Coding Level of Care Code Acute Print Controller for [facility] Fwd Diagnoses Acute delirium R41.0 Ankle fracture S82.899A Encounter type: initial encounter Fracture type: closed Laterality: unspecified laterality COVID-19 U07.1 Hypertension I10 Hyperlipidemia E78.5 Alzheimer's dementia G30.9; F02.80 Diabetes E11.9 CKD (chronic kidney disease) N18.9
[2020-02-12] MEDS: haloperidol inj 5 mg/mL INJ 1 mL (02:09)
--- NOTE | 2020-02-12 03:15 | PC.NURSE ---
patient at this time has calmed after medication, patient had IV re-established, patient is no longer violent patient is cooperative at this time, sitter at bedside, VS stable will continue to monitor
[2020-02-12 08:14] LABS: C Reactive Protein 12.8 mg/L (0.0-4.9); Ferritin 151 ng/mL (30-400); Lactate Dehydrogenase 232 U/L (135-225)
[2020-02-12 08:19] LABS: D Dimer 5.18 ug/mIFEU (0-0.59)
[2020-02-12] MEDS: enoxaparin 40 mg/0.4 mL Syringe SUBCUT (08:44)
[2020-02-12] MEDS: atorvastatin 40 mg Tablet 20 MG PO (08:45)
[2020-02-12] MEDS: ascorbic acid 500 mg Tablet PO (08:45)
[2020-02-12] MEDS: allopurinol 300 mg Tablet PO (08:45)
[2020-02-12] MEDS: citalopram 20 mg Tablet 40 MG PO (08:46)
[2020-02-12] MEDS: pantoprazole DR 40 mg Tablet PO (08:47)
[2020-02-12] MEDS: clopidogrel 75 mg Tablet PO (08:47)
[2020-02-12] MEDS: donepezil 5 MG Tablet 10 MG PO (08:47)
[2020-02-12] MEDS: zinc gluconate 50 mg Tablet PO (08:48)
[2020-02-12] MEDS: amlodipine 5 mg Tablet 2.5 MG PO (08:48)
[2020-02-12] MEDS: quetiapine 25 mg Tablet 50 MG PO (08:52)
--- NOTE | 2020-02-12 09:52 | PC.NURSE ---
Telemetry box Patient not placed on telemetry box d/t no telemetry on floor. Charge nurse notified. Dr. Bello ntotified. no new orders at this time.
--- NOTE | 2020-02-12 10:07 | CT_ITS ---
WS: [id number] CT angio chest PE protcl [id number] REASON FOR EXAM: hypoxia, covid, elevated dimer TECHNIQUE: Coronal and sagittal 2-D and MIP reformations. IV CONTRAST ADMINISTERED: 95 mL of Visipaque. TOTAL EXAM DLP: 562.[address] scans at [facility] use at least one of these dose optimization techniques: automat ed exposure control; mA and/or kV adjustment per patient size (includes targeted exams where dose is matched to clinical indication); or iterative reconstruction. FINDINGS: Examination is significantly degraded in the lower lung rangel by respiratory motion artifact. There is four-chamber cardiac enlargement. The thoracic aorta is within normal limits for age. Vergara ry artery calcifications. There are no pulmonary emboli. Small reactive nodes in the mediastinum and hilar regions with no significant adenopathy. Abundant me diastinal fat. Several small patchy areas of groundglass density and alveolar opacification in the lower lung rangel most notably on the right. There are some additional areas of linear atelectasis in both lungs predo minating on the left. Degenerative spondylosis in the lower thoracic spine with flowing anterior osteophyte formation and d isc space calcification. No significant compression deformity or focal vertebral body abnormality. CT/CT angio chest PE protcl [id number] IMPRESSION: No pulmonary emboli. Nonspecific groundglass density and small infiltrates most consistent with smal l airway disease and/or pneumonitis.
[2020-02-12] MEDS: haloperidol inj 5 mg/mL INJ 1 mL IM (10:52)
--- NOTE | 2020-02-12 11:08 | P.PN_ITS ---
Subjective Subjective: Interval history: Wei was sleepy but able to answer a few questions this morning. I visited with his who reported for the last 2 weeks has been more agitated than usual. She reports his dementia has seemed worse. Short-term memory has been severely impaired but he has continued to drive, and was able to help care for her some in the last year. However in the last 2 weeks there has been significantly more difficulty. Medications: Reviewed: Yes Vitals/I&O/Wt Last Vital Signs Temp 98.3 F 02/12/20 07:15 Pulse 93 02/12/20 08:33 Resp 20 H 02/12/20 08:33 BP 150/83 02/12/20 07:15 Pulse Ox 93 02/12/20 08:33 02/11/20 02/12/20 02/12/20 22:59 06:59 14:59 Intake Total 100 / 100 Balance 100 / 100 Weight last 48 hrs Weight 113.398 kg Physical Exam Narrative: EXAM NARRATIVE: General exam is a sleepy white male in no apparent distress Cardiovascular regular rate and rhythm without murmur Lungs diminished breath sounds bilaterally Abdomen is soft nontender with, obese Extremities no cyanosis clubbing or edema Data : 02/11/20 20:01 02/11/20 20:01 Micro: Microbiology 02/11/20 20:01 Blood Culture - Preliminary Blood SPECIMEN COLLECTED A&P Assessment and plan (1) Acute delirium: Likely secondary to Covid, in the face of underlying dementia Psychiatry consultation Increase patient's Seroquel Haldol, Ativan as needed currently Status: Acute (2) Ankle fracture: non displaced fibular fracture Ortho consultation Splint placed in the ER Status: Acute Qualifiers: Encounter type: initial encounter Fracture type: closed Laterality: unspecified laterality Qualified Code(s): S82.899A - Other fracture of unspecified lower leg, initial encounter for closed fracture (3) COVID-19: Requiring 2 L of oxygen per nasal cannula Add remdesivir Start Zinc/vit C, Advair inhaler, Significantly elevated dimer. Check CTA Start on dexamethasone, although reluctantly as this may increase neuroagitation Status: Acute (4) Hypertension: Status: Acute (5) Hyperlipidemia: Status: Acute (6) Alzheimer's dementia: Recently with significant agitation at baseline in the last 2 weeks but memory impairment has been going on years. Status: Acute (7) Diabetes: insulin sliding scale Status: Acute (8) CKD (chronic kidney disease): Status: Acute Attestations Medical Necessity Statement*: Needs continued hospitalization for treatment of Covid with remdesivir, evaluation of delirium Coding Level of Care Code Acute Grizzlyman for [facility] Diagnoses Acute delirium R41.0 Ankle fracture S82.899A Encounter type: initial encounter Fracture type: closed Laterality: unspecified laterality COVID-19 U07.1 Hypertension I10 Hyperlipidemia E78.5 Alzheimer's dementia G30.9; F02.80 Diabetes E11.9 CKD (chronic kidney disease) N18.9
[2020-02-12] MEDS: LORazepam 2 mg/mL INJ 1 mL 1 MG IVP (11:09)
--- NOTE | 2020-02-12 11:12 | PC.NURSE ---
Agitation nurse called into room by APARTMENT GROUNDSKEEPER. patient pulling off oxygen, gown, and brief. patient has swung at APARTMENT GROUNDSKEEPER. When nurse entered room patient was attempting to get out of bed, increase work of breathing was noted. nurse attempted to put oxygen back on patient and educated on need for oxygen. patietn swung at nurse and yelled profanity. Halodol IM given to patient. See MAR. notified. Nurse attempted to put pulse ox on patient to assess oxygen saturation. patient ripped off pulse ox and swung around the air. patient continuing to attempt to get out of bed. calling nurse and APARTMENT GROUNDSKEEPER bitches. you are going to hell. get the fuck away from me. 1mg IV ativan given to patient. See MAR.
[2020-02-12] MEDS: dexamethasone 4 mg/mL INJ 6 MG IVP (11:23)
--- NOTE | 2020-02-12 11:33 | PC.NURSE ---
1130 patient resting in bed. oxygen applied at 2L via NC. Pulse ox showing oxygen saturation of 89%, patient breathing 25 per minute. oxygen increased to 4L. pluse ox sating 94% current vital signs: HR:97 02: 94% on 4L RR:24 BP:145/84 TEMP: 100.2
--- NOTE | 2020-02-12 12:23 | PC.NURSE ---
Checkbook call from Tammie García requesting patients checkbook to brain picker wifes medications. nurse called patients ,Marilu and confirmed with that this was okay. checkbook obtained from patient, labeled with sticker and note on who is piking up along with phone number. Tammie advised to go to ER desk to get checkbook. charge nurse notified.
--- NOTE | 2020-02-12 12:48 | XR_ITS ---
WS: [id number] XR ankle RT 2V [id number] REASON FOR EXAM: ankle fracture FINDINGS: Right ankle mortise is preserved. There is an oblique fracture anterior inferior to posterior superio r at the level of the syndesmosis between the right tibia and fibula. No significant angulation or di splacement. No other significant bony or joint abnormality. XR/XR ankle RT 2V [id number] IMPRESSION: Distal right fibular fracture as above.
--- NOTE | 2020-02-12 12:54 | P.CONIM_ITS ---
Providers/Reason For Consult Consulting Physican/Specialty*: hospitalist Reason for Consult*: right ankle fracture Attending Physician: Epi Bello MD Primary Care Provider: Heather Bello MD History of Present Illness History of Present Illness Wei Locke is a 84 year old male Review of Systems General: Reports: ROS unobtainable due to mental status Meds/Allergies Home Medications and Allergies Home Medications Medication Instructions Recorded Confirmed Last Taken Type quetiapine 50 mg tablet 50 mg PO DAILY #30 tab 05/21/19 02/11/20 10/02/19 Rx allopurinol 300 mg PO DAILY 10/03/19 02/11/20 10/02/19 History amlodipine 2.5 mg PO DAILY 10/03/19 02/11/20 10/02/19 History citalopram 40 mg PO DAILY 10/03/19 02/11/20 10/02/19 History clopidogrel 75 mg PO DAILY 10/03/19 02/11/20 10/02/19 History donepezil 10 mg PO DAILY 10/03/19 02/11/20 10/03/19 History lisinopril 2.5 mg PO DAILY 10/03/19 02/11/20 10/02/19 History lovastatin 10 mg PO DAILY 10/03/19 02/11/20 10/02/19 History metformin 500 mg PO DAILY 10/03/19 02/11/20 10/02/19 History Allergies Allergy/AdvReac Type Severity Reaction Status Date / Time No Known Allergies Allergy Verified 10/03/19 18:11 Current Medications Current Medications Generic Name Dose Route Start Last Admin Trade Name Freq PRN Reason Stop Dose Admin Allopurinol 300 mg 02/12/20 09:00 02/12/20 08:45 Allopurinol 300 Mg Tablet PO 300 mg DAILY AMY Administration Amlodipine Besylate 2.5 mg 02/12/20 09:00 02/12/20 08:48 Amlodipine 5 Mg Tablet PO 2.5 mg DAILY AMY Administration Ascorbic Acid 500 mg 02/12/20 09:00 02/12/20 08:45 Ascorbic Acid 500 Mg Tablet PO 500 mg BID AMY Administration Atorvastatin Calcium 20 mg 02/12/20 09:00 02/12/20 08:45 Atorvastatin 40 Mg Tablet PO 20 mg DAILY AMY Administration Citalopram Hydrobromide 40 mg 02/12/20 09:00 02/12/20 08:46 Citalopram 20 Mg Tablet PO 40 mg DAILY AMY Administration Clopidogrel Bisulfate 75 mg 02/12/20 09:00 02/12/20 08:47 Clopidogrel 75 Mg Tablet PO 75 mg DAILY AMY Administration Dexamethasone 6 mg 02/12/20 11:30 02/12/20 11:23 Dexamethasone 4 Mg/Ml Inj IVP 6 mg Q24H AMY Administration Donepezil HCl 10 mg 02/12/20 09:00 02/12/20 08:47 Donepezil 5 Mg Tablet PO 10 mg DAILY AMY Administration Enoxaparin Sodium 40 mg 02/12/20 08:00 02/12/20 08:44 Enoxaparin 40 Mg/0.4 Ml Syringe SUBCUT 40 mg Q24H AMY Administration Haloperidol Lactate 5 mg 02/12/20 07:00 02/12/20 10:52 Haloperidol Inj 5 Mg/Ml Inj 1 Ml IM 5 mg Q8H PRN Administration AGITATION Lorazepam 1 mg 02/12/20 11:05 02/12/20 11:09 Lorazepam 2 Mg/Ml Inj 1 Ml IVP 1 mg Q6H PRN Administration ANXIETY Pantoprazole Sodium 40 mg 02/12/20 09:00 02/12/20 08:[address] 40 Mg Tablet PO 40 mg DAILY AMY Administration Fluticasone/Salmeterol 1 puff 02/12/20 08:00 02/12/20 08:30 Fluticasone-Salmeterol 250-50 Diskus INHALATION 1 puff BID.RESPIRATORY AMY Administration Zinc Gluconate 50 mg 02/12/20 09:00 02/12/20 08:48 Zinc Gluconate 50 Mg Tablet PO 50 mg DAILY AMY Administration PFSH Acute PFSH: Medical History (Updated 02/12/20 @ 06:38 by Rizwana Ling MD) Alzheimer's dementia CKD (chronic kidney disease) Diabetes Hyperlipidemia Hypertension Family History (Updated 02/12/20 @ 06:24 by Rizwana Ling MD) Other Dementia Social History (Updated 02/12/20 @ 06:24 by Rizwana Ling MD) Smoking and tobacco status: unknown if ever smoked Vitals/I&O/Wt Last Vital Signs Temp 98.3 F 02/12/20 07:15 Pulse 78 02/12/20 11:45 Resp 18 02/12/20 11:45 BP 168/80 02/12/20 11:45 Pulse Ox 96 02/12/20 11:45 02/11/20 02/12/20 02/12/20 22:59 06:59 14:59 Intake Total 100 / 100 Balance 100 / 100 Weight last 48 hrs Weight 250 lb Data Micro: Micro: Microbiology 02/11/20 20:01 Blood Culture - Pr eliminary Blood SPECIMEN COLLEC CYNDEE A&P Additional A&P Information Right fibula fracture. Plan is to obtain a true ankle x-ray. And treat in a air stirrup. We will reevaluate the x-ray but likely be weight-bear as tolerated. In brace. Consult Attestations Medical Necessity Statement: pain Coding Level of Care Code Acute Supervisor [employer] Department for [facility]
--- NOTE | 2020-02-12 13:21 | P.CONIM_ITS ---
Providers/Reason for Consult Consulting Physican/Specialty*: Michael Orellana MD - Psychiatry Reason for Consult*: Assistance has been requested to titrate medications to optimize patient mental status and compliance with effective medical treatment. Attending Physician: Epi Bello MD Primary Care Provider: Heather Bello MD Psych Consult HPI History of Present Illness Wei Locke is an 84-year-old male who was brought into the emergency room after sustaining a fractured ankle. Consultation has been requested due to concern over his baseline mental status and the variations in mental status that jeopardize his further medical care. According to record, his daughter reported that the patient has a history of dementia with medication for that diagnosis. No details are known and the patient is unable to provide details at this time. He has been confused since his arrival to the emergency room. Recently, he had been exhibiting episodes of agitation and verbal aggression. Review of records reveals that in September of this year he was receiving Seroquel 50 mg daily. That dosage has been increased to 200 mg daily. It is assumed that this medication was increased to try and manage that level of aggression and agitation. Records indicate that reported agitation has increased significantly in the past 2 weeks. While in the emergency room, he responded positively to ziprasidone. CT of the head was unremarkable. Discharge planning is complicated by his level of confusion and the family's inability to care for him in that state. His EKG performed in the emergency room produced a corrected QT interval of 431. Information provided by nursing staff indicates that the patient on arising in the morning was oriented vaguely to situation and that he believed he was in a intermediate. He was oriented to self. He was disoriented to time and place. Approximately 3 hours after morning medications, he became mildly volatile and and restless. He was provided haloperidol 5 mg at 1052 and supplemented with 1 mg of lorazepam 20 minutes later due to continued confusion and agitation. He is prescribed Seroquel 100 mg in the morning and at bedtime. However that order was placed after the morning medications and he has did not have his morning Seroquel. It is also noted that he is being prescribed citalopram 40 mg daily and donepezil 10 mg daily. Source of information for prior psychiatric history is [facility]. He has no history of inpatient hospitalization or outpatient treatment for mental health reasons. However records indicate that he was placed on donepezil for Alzheimer's disease extending back at least until 2014. Unfortunately there is only a data description and no narrative description into detail his level of dementia at that time. Review of Systems Narrative: Patient was unable to respond to questions regarding review of systems. Meds Current Medications: Current Medications Generic Name Dose Route Start Last Admin Trade Name Freq PRN Reason Stop Dose Admin Allopurinol 300 mg 02/12/20 09:00 02/12/20 08:45 Allopurinol 300 Mg Tablet PO 300 mg DAILY AMY Administration Amlodipine Besylat e 2.5 mg 02/12/20 09:00 02/12/20 08:48 Amlodipine 5 Mg Tablet PO 2.5 mg DAILY AMY Administration Ascorbic Acid 500 mg 02/12/20 09:00 02/12/20 08:45 Ascorbic Acid 50 0 Mg Tablet PO 500 mg BID AMY Administration Atorvastatin Calci um 20 mg 02/12/20 09:00 02/12/20 08:45 Atorvastatin 40 Mg Tablet PO 20 mg DAILY AMY Administration Citalopram Hydrobr omide 40 mg 02/12/20 09:00 02/12/20 08:46 Citalopram 20 Mg Tablet PO 40 mg DAILY AMY Administration Clopidogrel Bisulf ate 75 mg 02/12/20 09:00 02/12/20 08:47 Clopidogrel 75 M g Tablet PO 75 mg DAILY AMY Administration Dexamethasone 6 mg 02/12/20 11:30 02/12/20 11:23 Dexamethasone 4 Mg/Ml Inj IVP 6 mg Q24H AMY Administration Donepezil HCl 10 mg 02/12/20 09:00 02/12/20 08:47 Donepezil 5 Mg T ablet PO 10 mg DAILY AMY Administration Enoxaparin Sodium 40 mg 02/12/20 08:00 02/12/20 08:44 Enoxaparin 40 Mg /0.4 Ml Syringe SUBCUT 40 mg Q24H AMY Administration Haloperidol Lactat e 5 mg 02/12/20 07:00 02/12/20 10:52 Haloperidol Inj 5 Mg/Ml Inj 1 Ml IM 5 mg Q8H PRN Administration AGITATION remdesivir (EUA) 2 00 mg/ 100 mls @ 100 mls /hr 02/12/20 12:45 02/12/20 13:18 Sodium Chloride IV 02/12/20 13:44 100 mls/hr ONCE ONE Administration Lorazepam 1 mg 02/12/20 11:05 02/12/20 11:09 Lorazepam 2 Mg/M l Inj 1 Ml IVP 1 mg Q6H PRN Administration ANXIETY Pantoprazole Sodiu m 40 mg 02/12/20 09:00 02/12/20 08:[address] 40 Mg Tablet PO 40 mg DAILY AMY Administration Fluticasone/Salmet francy 1 puff 02/12/20 08:00 02/12/20 08:30 Fluticasone-Salm eterol 250-50 Disk us INHALATION 1 puff BID.RESPIRATORY S [facility] Administration Zinc Gluconate 50 mg 02/12/20 09:00 02/12/20 08:48 Zinc Gluconate 5 0 Mg Tablet PO 50 mg DAILY AMY Administration PFSH NPU PFSH: Medical History (Updated 02/12/20 @ 13:31 by Michael Orellana MD) Alzheimer's dementia CKD (chronic kidney disease) Diabetes Hyperlipidemia Hypertension Family History (Updated 02/12/20 @ 06:24 by Rizwana Ling MD) Other Dementia Social History (Updated 02/12/20 @ 06:24 by Rizwana Ling MD) Smoking and tobacco status: unknown if ever smoked Mental Status Exam MSE Comments: Mental status exam: The patient was encountered laying in his bed. His eyes remain closed during the attempted interview. He was mumbling and responding to internal stimuli. He did not respond to this physician verbally or to auditory stimuli. He was in no apparent physical distress. There were no gross neurological deficits. Vitals/I&O/Wt Last Vital Signs Temp 98.3 F 02/12/20 07:15 Pulse 78 02/12/20 11:45 Resp 18 02/12/20 11:45 BP 168/80 02/12/20 11:45 Pulse Ox 96 02/12/20 11:45 02/11/20 02/12/20 02/12/20 22:59 06:59 14:59 Intake Total 150 / 150 Balance 150 / 150 Weight last 48 hrs Weight 113.398 kg Data NPU Micro: Micro: Microbiology 02/11/20 20:01 Blood Culture - Pr eliminary Blood SPECIMEN COLLEC CYNDEE Microbiology 02/11/20 20:01 Blood Blood Culture - Preliminary SPECIMEN COLLECTED A&P Assessment and plan (1) Acute delirium: Status: Acute (2) Alzheimer's dementia: Status: Acute Qualifiers: Alzheimer's disease onset: late-onset Dementia behavioral disturbance: with behavioral disturbance Qualified Code(s): G30.1 - Alzheimer's disease with late onset; F02.81 - Dementia in other diseases classified elsewhere with behavioral disturbance Additional A&P Information It is difficult to assess the patient's baseline mental state prior to his arrival at the hospital. However it appears that he has been struggling with a diagnosis of dementia of Alzheimer's type at least for 6 years. Verbal report indicates that his degree of volatility and agitation has increased over the past few months. Currently he is in the hospital for treatment of a fractured ankle and later discovered coronavirus respiratory infection. Participation in this ongoing medical care is paramount. Steps being taken at this time for management of mental status to ensure this care seem reasonable and prudent. It appears that he is responded appropriately to the lorazepam. Given that he is already on the Seroquel, lorazepam would be a preferred as needed medication to maintain his safety. It is somewhat unclear what his preadmission dosage of Seroquel was. Caution is indicated due to potential for hypotension with that medication. However if effective and cardiac function remains stable, it is a reasonable choice. If not, his corrected QT interval allows ziprasidone as a replacement both on a scheduled or as needed dose. Current recommendation is to utilize lorazepam on a p.o./IM prn basis supplemented with low doses of haloperidol. If Seroquel is required to be decreased, ziprasidone would be an effective replacement. It appears that there has been significant functional decline prior to his hospitalization. It is expected that even with optimal medical care, his mental status may take several weeks for it to return to his best level of function. [facility] placement or rehabilitation will likely be required. Attestations NPU Medical Necessity Statement*: Continued hospitalization will be at the discretion of his treating physician. Coding Level of Care Code Acute Bioinformatician for [facility] Rivas Diagnoses Acute delirium R41.0 Alzheimer's dementia G30.1; F02.81 Alzheimer's disease onset: late-onset Dementia behavioral disturbance: with behavioral disturbance
--- NOTE | 2020-02-12 17:39 | PC.NURSE ---
Dinner tray Patient unable to stay awake. due to this, patient did not eat any dinner. patient is responsive to name and will open eyes, but falls back to sleep immediately. applesauce left at bedside for when patient wakes up.
[2020-02-13] VITALS (13 sets, daily range): BP systolic 130–159; BP diastolic 63–92; PULSE 70–90; RESP 17–28; TEMP 33.3–36.8; O2SAT 90–94
[2020-02-13] MEDS: LORazepam 2 mg/mL INJ 1 mL 1 MG IVP (02:43)
[2020-02-13 05:51] LABS: Hematocrit 53.9 % (42.0-52.0); Hemoglobin 16.9 g/dL (11.7-16.6); Lymphocytes # 0.5 10^3/uL (0.8-4.8); Lymphocytes % 22.4 %; Mean Corpuscular HGB Conc 31.4 g/dL (30.0-36.0); Mean Corpuscular Hemoglobin 28.5 pg (28.0-34.0); Mean Platelet Volume 9.7 fL (7.4-10.4); Monocytes # 0.4 10^3/uL (0.2-0.9); Monocytes % 18.7 %; Neutrophils # 1.26 10^3/uL (1.8-7.7); Neutrophils % 58.9 %; Nucleated Red Blood Cells % 0 %; Platelet Count 132 10^3/cmm (130-400); Red Blood Count 5.92 10^6/uL (4.1-5.3); White Blood Count 2.1 10^3/uL (4.0-10.0)
[2020-02-13 06:35] LABS: Alanine Aminotransferase 19 U/L (0-41); Albumin Level 3.9 g/dL (3.5-5.2); Alkaline Phosphatase 82 IU/L (40-130); Anion Gap 14.5 (5-19); Aspartate Amino Transferase 37 U/L (0-40); Blood Urea Nitrogen 23 mg/dL (8-23); Calcium 8.3 mg/dL (8.5-10.5); Carbon Dioxide 28 mmol/L (22-29); Chloride 103 mmol/L (98-107); Globulin 2.7 g/dL (1.3-4.6); Glucose 199 mg/dL (65-115); Osmolality Calculated 301 mOsm/kg (285-295); Potassium 4.5 mmol/L (3.5-5.1); Sodium 141 mmol/L (136-145); Thyroid Stimulating Hormone 0.67 uIU/mL (0.27-4.20); Total Bilirubin 0.6 mg/dL (0.15-1.2); Total Protein 6.6 g/dL (6.6-8.7)
--- NOTE | 2020-02-13 07:52 | P.PN_ITS ---
Vitals/I&O/Wt Last Vital Signs Temp 98.2 F 02/13/20 07:43 Pulse 77 02/13/20 07:43 Resp 22 H 02/13/20 07:43 BP 130/82 02/13/20 07:43 Pulse Ox 92 02/13/20 07:43 02/12/20 02/13/20 02/13/20 22:59 06:59 14:59 Output Total 0 / 0 Balance 0 / 250 Weight last 48 hrs Weight 250 lb Data : 02/13/20 05:04 02/13/20 05:04 Micro: Microbiology 02/11/20 20:01 Blood Culture - Preliminary Blood NEGATIVE TO DATE A&P Additional A&P Information X-ray of ankle reviewed.show adequate alignment of fibula. Currently in a splint NWB RLE. F/U ortho clinic in 2 weeks for repeat x rays Attestations Medical Necessity Statement*: pain Coding Level of Care Code Acute Director Of Exhibit Development for Navjot Rivas
[2020-02-13] MEDS: enoxaparin 40 mg/0.4 mL Syringe SUBCUT (08:50)
--- NOTE | 2020-02-13 09:24 | P.PN_ITS ---
Subjective NPU Subjective: Interval history: The patient was somnolent and an interview was not prformed. Mental Status Exam MSE Comments: Mental status exam: The patient was encountered laying in his bed. HE was asleep. He did not respond to this physician verbally or to auditory stimuli. He was in no apparent physical distress. There were no gross neurological deficits. Cognition: Level of Consciousness: Awake and Alert Patient Cognition Impaired: No Ability to Follow Directions: Fair Patient Orientation (long list): Person Comprehension Ability: Severe Impairment Behavior: Patient Behavior: Appropriate and Cooperative Speech Pattern: No Speech Vitals/I&O/Wt Last Vital Signs Temp 98.2 F 02/13/20 07:43 Pulse 70 02/13/20 09:24 Resp 18 02/13/20 09:21 BP 130/82 02/13/20 07:43 Pulse Ox 94 02/13/20 09:21 02/12/20 02/13/20 02/13/20 22:59 06:59 14:59 Output Total 0 / 0 Balance 0 / 250 Weight last 48 hrs Weight 113.398 kg Data NPU : 02/13/20 05:04 02/13/20 05:04 Micro: Microbiology 02/11/20 20:01 Blood Culture - Preliminary Blood NEGATIVE TO DATE Microbiology 02/11/20 20:01 Blood Blood Culture - Preliminary NEGATIVE TO DATE A&P Assessment and plan (1) Acute delirium: Status: Acute (2) Alzheimer's dementia: Status: Acute Qualifiers: Alzheimer's disease onset: late-onset Dementia behavioral disturbance: with behavioral disturbance Qualified Code(s): G30.1 - Alzheimer's disease with late onset; F02.81 - Dementia in other diseases classified elsewhere with behavioral disturbance Additional A&P Information It is difficult to assess the patient's baseline mental state prior to his arrival at the hospital. However it appears that he has been struggling with a diagnosis of dementia of Alzheimer's type at least for 6 years. Verbal report indicates that his degree of volatility and agitation has increased over the past few months. Currently he is in the hospital for treatment of a fractured ankle and later discovered coronavirus respiratory infection. Participation in this ongoing medical care is paramount. Steps being taken at this time for management of mental status to ensure this care seem reasonable and prudent. It appears that he is responded appropriately to the lorazepam. Given that he is already on the Seroquel, lorazepam would be a preferred as needed medication to maintain his safety. It is somewhat unclear what his preadmission dosage of Seroquel was. Caution is indicated due to potential for hypotension with that m edication. However if effective and cardiac function remains stable, it is a reasonable choice. If not, his corrected QT interval allows ziprasidone as a replacement both on a scheduled or as needed dose. Current recommendation is to utilize lorazepam on a p.o./IM prn basis supplemented with low doses of haloperidol. If Seroquel is required to be decreased, ziprasidone would be an effective replacement. It appears that there has been significant functional decline prior to his hospitalization. It is expected that even with optimal medical care, his mental status may take several weeks for it to return to his best level of function. penitentiary placement or rehabilitation will likely be required. Consult day #2: chart reviewed. Patient appears to have been either cooperative with care or somnolent most of the past 24 hours. He received 1 mg of lorazepam at 2 AM because of agitation which may explain or at least contribute to his somnolence 6 hours later. HE has not had any of his Seroquel. Recommendation: Lorazepam appears to be a pretty effective tool in managing his level of agitation. IT would be reasonable to try and minimize polypharmacy by stopping Seroquel and utilizing only prn lorazepam. The 1 mg dose may need to be reduced to 0.5 mg but It is likely too early to make that decision based on available data. Attestations NPU Medical Necessity Statement*: Will return to visit Mr Locke in the next 48 hours. I will be available by phone until then at your discretion. Coding Level of Care Code Acute Viscose Cellar Charge Hand for Navjot Rivas Diagnoses Acute delirium R41.0 Alzheimer's dementia G30.1; F02.81 Alzheimer's disease onset: late-onset Dementia behavioral disturbance: with behavioral disturbance
--- NOTE | 2020-02-13 16:11 | PM.PN ---
Subjective Subjective: Interval history: Wei was sleeping when I went and but could awaken and answer a few questions when stimulated. He had received a dose of lorazepam around 2:40 AM. Medications: Reviewed: Yes Vitals/I&O/Wt Last Vital Signs Temp 98.0 F 02/13/20 16:00 Pulse 76 02/13/20 16:00 Resp 22 H 02/13/20 16:00 BP 154/75 02/13/20 16:00 Pulse Ox 94 02/13/20 16:00 Weight last 48 hrs Weight 113.398 kg Physical Exam Narrative: EXAM NARRATIVE: General exam is a sleepy white male, who can answer a few questions yes or no when awakened Cardiovascular regular rate and rhythm Lungs slightly tachypneic, no wheezing or crackles Abdomen is soft with positive bowel sounds Extremities no cyanosis clubbing or edema Data : 02/13/20 05:04 02/13/20 05:04 Micro: Microbiology 02/11/20 20:01 Blood Culture - Preliminary Blood NEGATIVE TO DATE A&P Assessment and plan (1) Acute delirium: Likely secondary to Covid, in the face of underlying dementia Psychiatry consultation is appreciated He is somewhat oversedated currently. Reduce his Seroquel Reduce Ativan Reduce Haldol Status: Acute (2) Ankle fracture: non displaced fibular fracture Appreciate orthopedic consultation Will need outpatient follow-up Status: Acute Qualifiers: Encounter type: initial encounter Fracture type: closed Laterality: unspecified laterality Qualified Code(s): S82.899A - Other fracture of unspecified lower leg, initial encounter for closed fracture (3) COVID-19: Continue remdesivir, dexamethasone Start Zinc/vit C, Advair inhaler, CTA did not demonstrate pulmonary embolism. Changes consistent with Covid were noted. Start on dexamethasone, although reluctantly as this may increase neuroagitation Repeat inflammatory levels tomorrow including procalcitonin At this point will reinitiate Levaquin in case superimposed bacterial infection is noted Status: Acute (4) Hypertension: Status: Acute (5) Hyperlipidemia: Status: Acute (6) Alzheimer's dementia: Recently with significant agitation at baseline in the last 2 weeks but memory impairment has been going on years. Status: Acute Qualifiers: Alzheimer's disease onset: late-onset Dementia behavioral disturbance: with behavioral disturbance Qualified Code(s): G30.1 - Alzheimer's disease with late onset; F02.81 - Dementia in other diseases classified elsewhere with behavioral disturbance (7) Diabetes: insulin sliding scale Status: Acute (8) CKD (chronic kidney disease): Status: Acute Additional A&P Information 02/12 Oversedated today. Reducing many of his medications. Discontinue Haldol as needed. Nursing will need to call should medication be needed. Reduced Ativan as needed. Full code Lovenox for DVT prophylaxis Attestations Medical Necessity Statement*: Need hospitalization for treatment for COVID-19 pneumonia. 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
[2020-02-13] MEDS: dexamethasone 4 mg/mL INJ 6 MG IVP (16:39)
[2020-02-13] MEDS: sodium chloride 0.9% 1,000 ML 100 ML IV (16:40)
[2020-02-13] MEDS: ascorbic acid 500 mg Tablet PO (17:40)
--- NOTE | 2020-02-13 17:56 | PC.PT ---
PT note; have discussed patient with physical therapy staff, and studied Dr. Kirkpatrick note, regarding, patient to be nonweightbearing right lower extremity with splint in place, with patient known, dementia and confusion, patient inappropriate for physical therapy at this time, as he will be limited to pivot transfers on left lower extremity only, nonweightbearing right lower extremity. Discharge physical therapy.
[2020-02-13] MEDS: quetiapine 100 mg Tablet PO (20:21)
[2020-02-13] MEDS: LORazepam 2 mg/mL INJ 1 mL 0.5 MG IVP (23:28)
[2020-02-14] VITALS (11 sets, daily range): BP systolic 144–156; BP diastolic 76–88; PULSE 73–80; RESP 18–28; TEMP 36.4–36.9; O2SAT 92–98
[2020-02-14] MEDS: sodium chloride 0.9% 1,000 ML 100 ML IV ×2 (02:44→12:42)
[2020-02-14 04:02] LABS: Hematocrit 53.4 % (42.0-52.0); Hemoglobin 16.3 g/dL (11.7-16.6); Lymphocytes # 0.4 10^3/uL (0.8-4.8); Lymphocytes % 18.6 %; Mean Corpuscular HGB Conc 30.5 g/dL (30.0-36.0); Mean Platelet Volume 9.8 fL (7.4-10.4); Monocytes # 0.3 10^3/uL (0.2-0.9); Monocytes % 11.3 %; Neutrophils # 1.55 10^3/uL (1.8-7.7); Neutrophils % 70.1 %; Nucleated Red Blood Cells % 0 %; Platelet Count 137 10^3/cmm (130-400); Red Blood Count 5.62 10^6/uL (4.1-5.3); Red Cell Distribution Width 12.9 % (12.1-15.1); White Blood Count 2.2 10^3/uL (4.0-10.0)
[2020-02-14 04:20] LABS: C Reactive Protein 13.2 mg/L (0.0-4.9)
[2020-02-14 04:21] LABS: Alanine Aminotransferase 19 U/L (0-41); Albumin Level 3.6 g/dL (3.5-5.2); Alkaline Phosphatase 77 IU/L (40-130); Anion Gap 14.7 (5-19); Aspartate Amino Transferase 35 U/L (0-40); Blood Urea Nitrogen 26 mg/dL (8-23); Calcium 8.1 mg/dL (8.5-10.5); Carbon Dioxide 27 mmol/L (22-29); Chloride 102 mmol/L (98-107); Globulin 2.1 g/dL (1.3-4.6); Glucose 271 mg/dL (65-115); Osmolality Calculated 302 mOsm/kg (285-295); Potassium 4.7 mmol/L (3.5-5.1); Sodium 139 mmol/L (136-145); Total Bilirubin 0.4 mg/dL (0.15-1.2); Total Protein 5.7 g/dL (6.6-8.7)
[2020-02-14 04:27] LABS: Procalcitonin 0.08 ng/mL (0-0.5)
[2020-02-14 04:38] LABS: Ferritin 255 ng/mL (30-400); Lactate Dehydrogenase 246 U/L (135-225)
[2020-02-14] MEDS: zinc gluconate 50 mg Tablet PO (08:05)
[2020-02-14] MEDS: ascorbic acid 500 mg Tablet PO ×2 (08:05→17:28)
[2020-02-14] MEDS: clopidogrel 75 mg Tablet PO (08:05)
[2020-02-14] MEDS: atorvastatin 40 mg Tablet 20 MG PO (08:05)
[2020-02-14] MEDS: allopurinol 300 mg Tablet PO (08:05)
[2020-02-14] MEDS: enoxaparin 40 mg/0.4 mL Syringe SUBCUT (08:05)
[2020-02-14] MEDS: citalopram 20 mg Tablet 40 MG PO (08:05)
[2020-02-14] MEDS: donepezil 5 MG Tablet 10 MG PO (08:06)
[2020-02-14] MEDS: pantoprazole DR 40 mg Tablet PO (08:06)
[2020-02-14] MEDS: amlodipine 5 mg Tablet 2.5 MG PO (08:06)
[2020-02-14] MEDS: acetaminophen 325 mg Tablet 650 MG PO ×3 (08:07→20:23)
[2020-02-14] MEDS: dexamethasone 4 mg/mL INJ 6 MG IVP (11:07)
--- NOTE | 2020-02-14 13:30 | PM.PN ---
Subjective Subjective: Interval history: This morning patient was examined, he is on 4 L nasal cannula, does not really answer questions, is sitting up in bed, when prompted for questions, he does not really answer, moving his upper and lower extremities, but does not really follow commands, does look up at me, follows me around the room, nurses tell me that he did not have any agitation episodes overnight, afebrile over the last 24 hours, Vitals/I&O/Wt Last Vital Signs Temp 98.3 F 02/14/20 12:00 Pulse 78 02/14/20 08:10 Resp 20 H 02/14/20 12:00 BP 152/85 02/14/20 12:00 Pulse Ox 95 02/14/20 11:14 02/13/20 02/14/20 02/14/20 22:59 06:59 14:59 Intake Total 480 / 480 1000 / 1480 1256.667 / 1256.667 Output Total 800 / 800 325 / 1125 300 / 300 Balance -320 / -320 675 / 355 956.667 / 956.667 Physical Exam Const: COMMON NORMALS: no acute distress ORIENTATION/CONSCIOUSNESS: Yes awake and Yes confused; not oriented to person, not oriented to place and not oriented to time HENMT: COMMON NORMALS: normocephalic HEAD & SCALP: normocephalic Neck/C-Spine: COMMON NORMALS: no JVD Resp: COMMON NORMALS: normal respiratory effort, No retractions, No use of accessory muscles and clear to auscultation bilaterally AUSCULTATION: clear to auscultation bilaterally Cardio: COMMON NORMALS: no JVD, regular rate, regular rhythm, S1 normal heart sound present and S2 normal heart sound present RATE: regular rate RHYTHM: regular rhythm HEART SOUNDS: S1 normal heart sound present and S2 normal heart sound present GI: COMMON NORMALS: Normal to inspection, nondistended, normoactive bowel sounds present, Soft to palpation, non-tender, No hepatosplenomegaly present, no masses and no bruits PALPATION: Yes Soft to palpation and Yes No hepatosplenomegaly present Extremity: COMMON NORMALS: capillary refill normal, no clubbing, cyanosis or edema, no calf tenderness and no pedal edema Neuro: SENSORIUM/ORIENTATION: No oriented to person, No oriented to place and No oriented to time Data : 02/14/20 03:30 02/14/20 03:30 A&P Assessment and plan (1) Acute delirium: Likely secondary to Covid, in the face of underlying dementia Psychiatry consultation is appreciated Somewhat somnolent today, does not really answer questions, but is sitting up in bed, eyes open, follows me around the room, spontaneously moving upper and lower extremities, but does not really follow commands, no more episodes of agitation overnight Cervical 100 mg at bedtime Ativan 0.5 mg every 6 as needed Celexa 40 mg daily Status: Acute (2) Ankle fracture: non displaced fibular fracture Appreciate orthopedic consultation Currently in a splint will need to follow-up with Ortho as outpatient, Status: Acute Qualifiers: Encounter type: initial encounter Fracture type: closed Laterality: unspecified laterality Qualified Code(s): S82.899A - Other fracture of unspecified lower leg, initial encounter for closed fracture (3) COVID-19: Continue remdesivir, dexamethasone Zinc/vit C, Advair inhaler, CTA did not demonstrate pulmonary embolism. Changes consistent with Covid were noted. On dexamethasone, although reluctantly as this may increase neuroagitation Repeat inflammatory levels tomorrow Status: Acute (4) Hypertension: Status: Acute (5) Hyperlipidemia: Status: Acute (6) Alzheimer's dementia: Recently with significant agitation at baseline in the last 2 weeks but memory impairment has been going on years. Status: Acute Qualifiers: Alzheimer's disease onset: late-onset Dementia behavioral disturbance: with behavioral disturbance Qualified Code(s): G30.1 - Alzheimer's disease with late onset; F02.81 - Dementia in other diseases classified elsewhere with behavioral disturbance (7) Diabetes: insulin sliding scale Status: Acute (8) CKD (chronic kidney disease): Status: Acute Additional A&P Information Plan for today a bit somnolent, no episodes of agitation monitor respiratory status, Full code Lovenox for DVT prophylaxis Attestations Medical Necessity Statement*: Patient requires hospitalization for acute respiratory failure secondary to COVID-19, delirium secondary COVID-19, underlying dementia Coding Level of Care Code Acute Seafood Service Team Member for edgar Rivas Diagnoses Acute delirium R41.0 Ankle fracture S82.899A Encounter type: initial encounter Fracture type: closed Laterality: unspecified laterality COVID-19 U07.1 Hypertension I10 Hyperlipidemia E78.5 Alzheimer's dementia G30.1; F02.81 Alzheimer's disease onset: late-onset Dementia behavioral disturbance: with behavioral disturbance Diabetes E11.9 CKD (chronic kidney disease) N18.9
[2020-02-14 15:30] LABS: Lactate (Lactic Acid level) 0.9 mmol/L (0.5-2.2)
[2020-02-14] MEDS: LORazepam 2 mg/mL INJ 1 mL 0.5 MG IVP (20:20)
[2020-02-15] VITALS (8 sets, daily range): BP systolic 141–174; BP diastolic 70–87; PULSE 67–111; RESP 18–26; TEMP 36.4–37.1; O2SAT 92–94
[2020-02-15] MEDS: morphine 4 mg/mL SDV 1 mL 2 MG IVP (00:07)
--- NOTE | 2020-02-15 00:26 | PC.NURSE ---
Patient refused bed bath. Face and hair washed.
[2020-02-15 06:05] LABS: Hematocrit 48.5 % (42.0-52.0); Hemoglobin 15.5 g/dL (11.7-16.6); Lymphocytes # 0.5 10^3/uL (0.8-4.8); Lymphocytes % 17.8 %; Mean Corpuscular Hemoglobin 28.4 pg (28.0-34.0); Mean Platelet Volume 9.9 fL (7.4-10.4); Monocytes # 0.4 10^3/uL (0.2-0.9); Monocytes % 13.9 %; Neutrophils # 1.95 10^3/uL (1.8-7.7); Nucleated Red Blood Cells % 0 %; Platelet Count 156 10^3/cmm (130-400); Red Blood Count 5.45 10^6/uL (4.1-5.3); Red Cell Distribution Width 12.8 % (12.1-15.1); White Blood Count 2.9 10^3/uL (4.0-10.0)
--- NOTE | 2020-02-15 06:35 | NUR.SHIFT ---
Patient has had a talkative night, telling stories and things of his past. Patient would only follow directions somewhat. Patient's WOB was worse during the time that he was talking but now he resting and his WOB has improved.
[2020-02-15 06:37] LABS: D Dimer 0.98 ug/mIFEU (0-0.59)
[2020-02-15 06:44] LABS: Glucose Point of Care 195 mg/dL (70-110)
[2020-02-15 06:53] LABS: NT Pro B Type Natriuretic Pept 142 pg/mL (0-450); Procalcitonin 0.06 ng/mL (0-0.5)
--- NOTE | 2020-02-15 07:00 | XR_ITS ---
WS: [id number] PORTABLE CHEST HISTORY: sob COMPARISON: 02/11/2020 Lordotic positioning of the thorax. Mild interstitial thickening throughout the RIGHT lung. No focal consolidation. No pleural effusion o r pneumothorax. Cardiac size: Mildly enlarged cardiac silhouette. Mediastinum/Aorta: Mild atherosclerosis aorta. No osseous abnormality seen. XR/XR chest 1V portable [id number] IMPRESSION: Minimal interstitial thickening throughout the RIGHT lung. No pneumonia.
[2020-02-15 07:05] LABS: Alanine Aminotransferase 18 U/L (0-41); Albumin Level 3.4 g/dL (3.5-5.2); Alkaline Phosphatase 66 IU/L (40-130); Anion Gap 13.3 (5-19); Aspartate Amino Transferase 31 U/L (0-40); Blood Urea Nitrogen 22 mg/dL (8-23); C Reactive Protein 5.1 mg/L (0.0-4.9); Calcium 8.1 mg/dL (8.5-10.5); Carbon Dioxide 27 mmol/L (22-29); Chloride 102 mmol/L (98-107); Creatine Phosphokinase 291 U/L (39-308); Globulin 2.4 g/dL (1.3-4.6); Glucose 225 mg/dL (65-115); Magnesium 1.9 mg/dL (1.7-2.3); Osmolality Calculated 296 mOsm/kg (285-295); Phosphorus 1.6 mg/dL (2.5-4.5); Potassium 4.3 mmol/L (3.5-5.1); Sodium 138 mmol/L (136-145); Total Bilirubin 0.5 mg/dL (0.15-1.2); Total Protein 5.8 g/dL (6.6-8.7)
[2020-02-15] MEDS: LORazepam 2 mg/mL INJ 1 mL 0.5 MG IVP (07:55)
[2020-02-15] MEDS: haloperidol inj 5 mg/mL INJ 1 mL 3 MG IVP (09:20)
[2020-02-15] MEDS: diphenhydrAMINE 50 mg/mL SDV 1mL IVP (09:21)
[2020-02-15] MEDS: LORazepam 2 mg/mL INJ 1 mL IVP (09:21)
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
[2020-02-15] MEDS: OLANZapine 10 mg VIAL IM ×2 (10:23→19:27)
[2020-02-15] MEDS: enoxaparin 40 mg/0.4 mL Syringe SUBCUT (10:27)
[2020-02-15 11:26] LABS: Glucose Point of Care 179 mg/dL (70-110)
--- NOTE | 2020-02-15 11:41 | PC.SOCIAL ---
Pg 2 IMM Explained to pt's , via phone, Pg 2 IMM, No questions voiced. Provided a copy to pt care nurse to give to pt. Signed, dated, & timed a copy & placed in chart.
--- NOTE | 2020-02-15 12:17 | PC.NURSE ---
Patient is agitated at this time and told this CARDIAC CATH LAB MANAGER to get out of the room and not come back.
--- NOTE | 2020-02-15 12:22 | PM.PN ---
Subjective Subjective: Interval history: This morning patient was examined, he sitting up at the edge of the bed, trying multiple times to get up, with concerns for worsening of ankle fracture as he was in a splint, fairly agitated, confused, very agitated with me, code 10 had to be called, received 2 mg of Ativan 3 mg of Haldol 50 mg of Benadryl, were able to get back into bed, however continues to have episodes of agitation, requiring 10 mg of Zyprexa IM, doing better now, less agitated, still confused Vitals/I&O/Wt Last Vital Signs Temp 98.5 F 02/15/20 08:00 Pulse 67 02/15/20 08:00 Resp 18 02/15/20 08:00 BP 174/87 02/15/20 08:00 Pulse Ox 94 02/15/20 08:00 02/14/20 02/15/20 02/15/20 22:59 06:59 14:59 Intake Total 600 / 1856.667 480 / 2336.667 Output Total 300 / 600 450 / 1050 Balance 300 / 1256.667 30 / 1286.667 Physical Exam Const: COMMON NORMALS: alert EXAM LIMITATIONS: altered mental status GENERAL APPEARANCE: combative NUTRITIONAL APPEARANCE: obese ORIENTATION/CONSCIOUSNESS: Yes awake and Yes confused; not oriented to person, not oriented to place and not oriented to time Resp: COMMON NORMALS: normal respiratory effort, No retractions, No use of accessory muscles and clear to auscultation bilaterally AUSCULTATION: clear to auscultation bilaterally Cardio: COMMON NORMALS: regular rate, regular rhythm, S1 normal heart sound present and S2 normal heart sound present RATE: regular rate RHYTHM: regular rhythm HEART SOUNDS: S1 normal heart sound present and S2 normal heart sound present GI: COMMON NORMALS: Normal to inspection, nondistended, normoactive bowel sounds present and Soft to palpation PALPATION: Yes Soft to palpation Neuro: SENSORIUM/ORIENTATION: Yes alert, No oriented to person, No oriented to place, No oriented to time and Yes fluctuating sensorium Data : 02/15/20 03:00 02/15/20 03:00 A&P Assessment and plan (1) Acute delirium: Likely secondary to Covid, in the face of underlying dementia Psychiatry consultation is appreciated Agitated, combative, confused this morning Received 2 mg Ativan early in the morning, became much worse combative after 3 mg of Haldol 2 mg Ativan, 50 mg of Benadryl helped to some degree, less agitated, agreeable to get back in bed Still confused, became much more agitated, got 10 mg of Zyprexa, significantly less agitated now, still confused Hold Decadron, due to neuroagitation Seroquel 100 mg at bedtime Celexa 40 mg daily Add Zyprexa 5 mg twice daily Zyprexa 10 mg IM every 6 as needed Can consider Geodon instead Status: Acute (2) Ankle fracture: non displaced fibular fracture Appreciate orthopedic consultation Currently in a splint, nonweightbearing will need to follow-up with Ortho as outpatient, Status: Acute Qualifiers: Encounter type: initial encounter Fracture type: closed Laterality: unspecified laterality Qualified Code(s): S82.899A - Other fracture of unspecified lower leg, initial encounter for closed fracture (3) COVID-19: Continue remdesivir, dexamethasone Zinc/vit C, Advair inhaler, CTA did not demonstrate pulmonary embolism. Changes consistent with Covid were noted. Hold Decadron for now, due to concerns for neuro agitation Repeat inflammatory levels tomorrow Status: Acute (4) Hypertension: Status: Acute (5) Hyperlipidemia: Status: Acute (6) Alzheimer's dementia: Recently with significant agitation at baseline in the last 2 weeks but memory impairment has been going on years. Status: Acute Qualifiers: Alzheimer's disease onset: late-onset Dementia behavioral disturbance: with behavioral disturbance Qualified Code(s): G30.1 - Alzheimer's disease with late onset; F02.81 - Dementia in other diseases classified elsewhere with behavioral disturbance (7) Diabetes: insulin sliding scale Status: Acute (8) CKD (chronic kidney disease): Status: Acute Additional A&P Information Plan for today a bit somnolent, no episodes of agitation monitor respiratory status, Full code Lovenox for DVT prophylaxis Attestations Medical Necessity Statement*: Patient requires hospitalization for ankle fracture, COVID-19 pneumonia, acute delirium secondary COVID-19 Coding Level of Care Code Acute [employer] Department Head for [facility] Diagnoses Acute delirium R41.0 Ankle fracture S82.899A Encounter type: initial encounter Fracture type: closed Laterality: unspecified laterality COVID-19 U07.1 Hypertension I10 Hyperlipidemia E78.5 Alzheimer's dementia G30.1; F02.81 Alzheimer's disease onset: late-onset Dementia behavioral disturbance: with behavioral disturbance Diabetes E11.9 CKD (chronic kidney disease) N18.9
[2020-02-15] MEDS: OLANZapine 5 mg TABLET PO (13:29)
[2020-02-15 17:35] LABS: Glucose Point of Care 153 mg/dL (70-110)
[2020-02-15] MEDS: doxycycline 100 mg Tablet PO (18:30)
[2020-02-15 21:55] LABS: Glucose Point of Care 128 mg/dL (70-110)
[2020-02-16] VITALS (8 sets, daily range): BP systolic 160–178; BP diastolic 64–82; PULSE 73–92; RESP 18–96; TEMP 36.4–37; O2SAT 92–96
[2020-02-16 05:16] LABS: Basophils % 0.2 %; Eosinophils % 0.3 %; Hematocrit 53.3 % (42.0-52.0); Hemoglobin 16.9 g/dL (11.7-16.6); Lymphocytes # 2.2 10^3/uL (0.8-4.8); Lymphocytes % 37.8 %; Mean Corpuscular HGB Conc 31.7 g/dL (30.0-36.0); Mean Corpuscular Hemoglobin 28.7 pg (28.0-34.0); Mean Corpuscular Volume 90.6 fL (80-94); Mean Platelet Volume 9.7 fL (7.4-10.4); Monocytes # 0.8 10^3/uL (0.2-0.9); Monocytes % 13.2 %; Neutrophils # 2.79 10^3/uL (1.8-7.7); Neutrophils % 48.3 %; Nucleated Red Blood Cells % 0 %; Platelet Count 153 10^3/cmm (130-400); Red Blood Count 5.88 10^6/uL (4.1-5.3); Red Cell Distribution Width 12.8 % (12.1-15.1); White Blood Count 5.8 10^3/uL (4.0-10.0)
[2020-02-16] MEDS: OLANZapine 10 mg VIAL IM (05:40)
[2020-02-16 05:41] LABS: D Dimer 1.24 ug/mIFEU (0-0.59)
[2020-02-16 05:53] LABS: NT Pro B Type Natriuretic Pept 244 pg/mL (0-450); Procalcitonin 0.07 ng/mL (0-0.5)
[2020-02-16 06:04] LABS: Alanine Aminotransferase 23 U/L (0-41); Albumin Level 3.7 g/dL (3.5-5.2); Alkaline Phosphatase 72 IU/L (40-130); Anion Gap 14.5 (5-19); Aspartate Amino Transferase 43 U/L (0-40); Blood Urea Nitrogen 19 mg/dL (8-23); C Reactive Protein 3.3 mg/L (0.0-4.9); Calcium 8.8 mg/dL (8.5-10.5); Carbon Dioxide 30 mmol/L (22-29); Chloride 103 mmol/L (98-107); Globulin 2.5 g/dL (1.3-4.6); Glucose 143 mg/dL (65-115); Magnesium 1.7 mg/dL (1.7-2.3); Osmolality Calculated 301 mOsm/kg (285-295); Phosphorus 2.3 mg/dL (2.5-4.5); Potassium 4.5 mmol/L (3.5-5.1); Sodium 143 mmol/L (136-145); Total Bilirubin 0.7 mg/dL (0.15-1.2); Total Protein 6.2 g/dL (6.6-8.7)
[2020-02-16 06:06] LABS: Creatine Phosphokinase 382 U/L (39-308)
--- NOTE | 2020-02-16 08:36 | PM.NPN ---
Subjective NPU Subjective: Interval history: This morning patient was examined, review of records shows that he was requiring 10 mg of Zyprexa IM 3 hours ago. He is accompanied by staff who reports that he has not changed significantly from yesterday. Verbal report was that he did not sleep at night. He continues to be resistive to all treatment, refusing medications, and assaultive when manipulated. Mental Status Exam MSE Comments: Mental status exam: The patient was encountered at approximately 8:30 AM. At the time of interview, he is laying in bed awake. He does not respond to verbal stimuli. He is oriented x0. He is restless but in no apparent distress. Cognition: Level of Consciousness: Awake and Alert Patient Cognition Impaired: No Ability to Follow Directions: Fair Patient Orientation (long list): Person Comprehension Ability: Severe Impairment Thought Process: Confused Affect: Affect Description: Anxious and Guarded Behavior: Patient Behavior: Cooperative and Uncooperative Speech Pattern: Includes Profanity Vitals/I&O/Wt Last Vital Signs Temp 97.9 F 02/16/20 07:56 Pulse 73 02/16/20 07:56 Resp 18 02/16/20 07:56 BP 178/78 02/16/20 07:56 Pulse Ox 95 02/16/20 07:56 02/15/20 02/16/20 02/16/20 22:59 06:59 14:59 Intake Total 120 / 360 Balance 120 / 360 Data NPU : 02/16/20 05:00 02/16/20 05:00 A&P Assessment and plan (1) Acute delirium: Status: Acute (2) Alzheimer's dementia: Status: Acute Qualifiers: Alzheimer's disease onset: late-onset Dementia behavioral disturbance: with behavioral disturbance Qualified Code(s): G30.1 - Alzheimer's disease with late onset; F02.81 - Dementia in other diseases classified elsewhere with behavioral disturbance Additional A&P Information It is difficult to assess the patient's baseline mental state prior to his arrival at the hospital. However it appears that he has been struggling with a diagnosis of dementia of Alzheimer's type at least for 6 years. Verbal report indicates that his degree of volatility and agitation has increased over the past few months. Currently he is in the hospital for treatment of a fractured ankle and later discovered coronavirus respiratory infection. Participation in this ongoing medical care is paramount. Steps being taken at this time for management of mental status to ensure this care seem reasonable and prudent. It appears that he is responded appropriately to the lorazepam. Given that he is already on the Seroquel, lorazepam would be a preferred as needed medication to maintain his safety. It is somewhat unclear what his preadmission dosage of Seroquel was. Caution is indicated due to potential for hypotension with that medication. However if effective and cardiac function remains stable, it is a reasonable choice. If not, his corrected QT interval allows ziprasidone as a replacement both on a scheduled or as needed dose. Current recommendation is to utilize lorazepam on a p.o./IM prn basis supplemented with low doses of haloperidol. If Seroquel is required to be decreased, ziprasidone would be an effective replacement. It appears that there has been significant functional decline prior to his hospitalization. It is expected that even with optimal medical care, his mental status may take several weeks for it to return to his best level of function. [facility] placement or rehabilitation will likely be required. Consult day #2: chart reviewed. Patient appears to have been either cooperative with care or somnolent most of the past 24 hours. He received 1 mg of lorazepam at 2 AM because of agitation which may explain or at least contribute to his somnolence 6 hours later. HE has not had any of his Seroquel. Recommendation: Lorazepam appears to be a pretty effective tool in managing his level of agitation. IT would be reasonable to try and minimize polypharmacy by stopping Seroquel and utilizing only prn lorazepam. The 1 mg dose may need to be reduced to 0.5 mg but It is likely too early to make that decision based on available data. Consult day #4: Yesterday his Seroquel was held with a reference to adverse reaction though the nature of this adverse reaction is unknown to this physician and not apparent in the record. Nursing notes indicate that he was awake most of the night. He was generally talkative but continued to be resistant to the therapeutic efforts. He apparently became more irritable this morning and was given lorazepam early this morning. Around 0900, the a code for assaultive behavior was initiated. Assessment: He appears to respond better to dopamine antagonist medications in terms of his aggressive demeanor. There appears to be a correlation between initiating lorazepam monotherapy and this recent aggressive outburst. I am unable to find any such correlation for Seroquel. At this time the focus is to maintain his ability to at least allow therapeutic efforts to be performed even if he is unwilling or incapable of actively engaging in those efforts. Dopamine antagonizing medication such as Haldol, Seroquel, and Zyprexa would be likely candidates for use for this purpose. It appears that the benzodiazepine may have exacerbated his agitation and it is suggested that lorazepam be avoided while use of antipsychotic medications is optimized. At this point, the donepezil and citalopram are likely doing nothing more than creating complicated polypharmacy and it is recommended that those be placed on hold until his mental status improves. Consult day #5: The patient is refusing all oral medication. As such, he has not has his Seroquel. At this point, establishing a regular diurnal cycle may help promote better cognitive function. Though he has become agitated after taking lorazepam in the past, its use in combination with a dopamine antagonist at bedtime may be of benefit. Recommendation at this time is that at bedtime if he is refusing oral medication, provide Zyprexa IM 5 mg to promote somnolence. If this is not effective, would follow-up with lorazepam 1 mg IM. Continue use of IM Zyprexa for agitation is appropriate. An alternative would be Geodon 10 or 20 mg IM. There is enough difference in those medications pharmacologically that his response may differ between the 2. Attestations NPU Medical Necessity Statement*: Continued length of stay will be determined by physician of record. 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
[2020-02-16] MEDS: citalopram 20 mg Tablet 40 MG PO (09:22)
[2020-02-16] MEDS: enoxaparin 40 mg/0.4 mL Syringe SUBCUT (09:22)
[2020-02-16] MEDS: clopidogrel 75 mg Tablet PO (09:23)
[2020-02-16] MEDS: ascorbic acid 500 mg Tablet PO ×2 (09:23→18:15)
[2020-02-16] MEDS: allopurinol 300 mg Tablet PO (09:23)
[2020-02-16] MEDS: amlodipine 5 mg Tablet 2.5 MG PO (09:23)
[2020-02-16] MEDS: pantoprazole DR 40 mg Tablet PO (09:23)
[2020-02-16] MEDS: zinc gluconate 50 mg Tablet PO (09:23)
[2020-02-16] MEDS: donepezil 5 MG Tablet 10 MG PO (09:23)
[2020-02-16] MEDS: OLANZapine 5 mg TABLET PO (09:23)
[2020-02-16] MEDS: atorvastatin 40 mg Tablet 20 MG PO (09:23)
[2020-02-16] MEDS: doxycycline 100 mg Tablet PO ×2 (09:23→18:15)
--- NOTE | 2020-02-16 11:30 | ECG_ITS ---
[facility] Test Date: 2020-02-16 Pat Name: Wei Locke Department: Room: 268 Gender: Male Diazo Technician: : [id number] Requested By: Aden Cota Order Number: [id number] Diego MD: RANJAN GRIFFITH Measurements Intervals [place] Rate: 83 P: 20 CT: 174 QRS: -5 QRSD: 121 T: -44 QT: 403 QTc: 474 Interpretive Statements SINUS RHYTHM INFERIOR MYOCARDIAL INFARCTION [40+ ms Q WAVE AND/OR ST/T ABNORMALITY IN II/aVF], OF INDETERMINATE AGE ANTEROLATERAL MYOCARDIAL INFARCTION [40+ ms Q WAVE IN I/aVL/V3-V6], OF INDETERMINATE AGE INTERPRETATION BASED ON A DEFAULT AGE OF 40 YEARS Compared to ECG 02/11/2020 20:13:43 Sinus arrhythmia no longer present Myocardial infarct finding still present Electronically Signed On 02-16-2020 18:14:42 IMPROVEMENT ENGINEER by RANJAN GRIFFITH [id number] f
[2020-02-16 12:17] LABS: Glucose Point of Care 135 mg/dL (70-110)
--- NOTE | 2020-02-16 13:12 | P.PN_ITS ---
Subjective Subjective: Interval history: Patient had episodes of agitation overnight, is sleeping this morning, does awaken to verbal commands, but falls back asleep I confirmed with Marilu patient's CODE STATUS, she tells me that she and her had a living well created many years ago, through [employer], we have a copy of it at home, but she tells me that he is a DNR/DNI, she does not want chest compressions for him, she does not want him to be intubated, above all she wants him to remain comfortable, she will try to obtain the copies, she is currently admitted in the room next to [facility] Vitals/I&O/Wt Last Vital Signs Temp 97.8 F 02/16/20 11:53 Pulse 84 02/16/20 11:53 Resp 18 02/16/20 11:53 BP 160/64 02/16/20 11:53 Pulse Ox 92 02/16/20 11:53 02/15/20 02/16/20 02/16/20 22:59 06:59 14:59 Intake Total 120 / 360 120 / 120 Balance 120 / 360 120 / 120 Physical Exam Const: COMMON NORMALS: no acute distress OTHER: Currently sleeping, does awaken to verbal commands Neck/C-Spine: COMMON NORMALS: no JVD Chest: COMMONS NORMALS: normal inspection of the chest Resp: COMMON NORMALS: normal respiratory effort, No retractions, No use of accessory muscles and clear to auscultation bilaterally AUSCULTATION: clear to auscultation bilaterally Cardio: COMMON NORMALS: no JVD, regular rate, regular rhythm, S1 normal heart sound present and S2 normal heart sound present RATE: regular rate RHYTHM: regular rhythm HEART SOUNDS: S1 normal heart sound present and S2 normal heart sound present GI: COMMON NORMALS: Normal to inspection, nondistended, normoactive bowel sounds present and Soft to palpation PALPATION: Yes Soft to palpation Extremity: COMMON NORMALS: no clubbing, cyanosis or edema and no pedal edema Data : 02/16/20 05:00 02/16/20 05:00 A&P Assessment and plan (1) Acute delirium: Likely secondary to Covid, in the face of underlying dementia Psychiatry consultation is appreciated Had agitation and combative episodes during the night according to nursing staff Increase Zyprexa to 10 mg twice daily Haldol as needed We will check QTc interval this morning Seroquel 100 mg at bedtime Celexa 40 mg daily Can consider Geodon instead Status: Acute (2) Ankle fracture: non displaced fibular fracture Appreciate orthopedic consultation Currently in a splint, nonweightbearing will need to follow-up with Ortho as outpatient, Status: Acute Qualifiers: Encounter type: initial encounter Fracture type: closed Laterality: unspecified laterality Qualified Code(s): S82.899A - Other fracture of unspecified lower leg, initial encounter for closed fracture (3) COVID-19: Continue remdesivir, dexamethasone Zinc/vit C, Advair inhaler, CTA did not demonstrate pulmonary embolism. Changes consistent with Covid were noted. Hold Decadron for now, due to concerns for neuro agitation Repeat inflammatory levels tomorrow Status: Acute (4) Hypertension: Status: Acute (5) Hyperlipidemia: Status: Acute (6) Alzheimer's dementia: Recently with significant agitation at baseline in the last 2 weeks but memory impairment has been going on years. Status: Acute Qualifiers: Alzheimer's disease onset: late-onset Dementia behavioral disturbance: with behavioral disturbance Qualified Code(s): G30.1 - Alzheimer's disease with late onset; F02.81 - Dementia in other diseases classified elsewhere with behavioral disturbance (7) Diabetes: insulin sliding scale Status: Acute (8) CKD (chronic kidney disease): Status: Acute Additional A&P Information Plan for today a bit somnolent, no episodes of agitation during my examination DNR/DNI Lovenox for DVT prophylaxis Attestations Medical Necessity Statement*: Patient requires hospitalization for acute delirium, COVID-19, awaiting alf placement Coding Level of Care Code Acute 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
[2020-02-16 17:18] LABS: Glucose Point of Care 134 mg/dL (70-110)
[2020-02-16] MEDS: cloNIDine 0.1 mg Tablet PO (18:15)
[2020-02-16] MEDS: sodium chloride 0.9% 1,000 ML 100 ML IV (18:16)
[2020-02-16 21:15] LABS: Glucose Point of Care 150 mg/dL (70-110)
[2020-02-17] VITALS (9 sets, daily range): BP systolic 108–160; BP diastolic 66–89; PULSE 70–98; RESP 17–30; TEMP 37–37.9; O2SAT 90–98
[2020-02-17 04:54] LABS: Basophils % 0.2 %; Eosinophils # 0.1 10^3/uL (0.0-0.8); Eosinophils % 1.9 %; Hematocrit 50.5 % (42.0-52.0); Lymphocytes # 0.8 10^3/uL (0.8-4.8); Lymphocytes % 18.7 %; Mean Corpuscular HGB Conc 31.7 g/dL (30.0-36.0); Mean Corpuscular Hemoglobin 28.8 pg (28.0-34.0); Mean Corpuscular Volume 90.8 fL (80-94); Mean Platelet Volume 9.9 fL (7.4-10.4); Monocytes # 0.5 10^3/uL (0.2-0.9); Monocytes % 10.5 %; Neutrophils # 2.93 10^3/uL (1.8-7.7); Neutrophils % 68.5 %; Nucleated Red Blood Cells % 0 %; Platelet Count 142 10^3/cmm (130-400); Red Blood Count 5.56 10^6/uL (4.1-5.3); Red Cell Distribution Width 12.9 % (12.1-15.1); White Blood Count 4.3 10^3/uL (4.0-10.0)
[2020-02-17 05:20] LABS: NT Pro B Type Natriuretic Pept 149 pg/mL (0-450); Procalcitonin 0.07 ng/mL (0-0.5)
[2020-02-17] MEDS: sodium chloride 0.9% 1,000 ML 100 ML IV (05:24)
[2020-02-17 05:30] LABS: D Dimer 0.88 ug/mIFEU (0-0.59)
[2020-02-17 05:32] LABS: Alanine Aminotransferase 27 U/L (0-41); Albumin Level 3.3 g/dL (3.5-5.2); Alkaline Phosphatase 73 IU/L (40-130); Anion Gap 12.9 (5-19); Aspartate Amino Transferase 40 U/L (0-40); Blood Urea Nitrogen 16 mg/dL (8-23); C Reactive Protein 16.3 mg/L (0.0-4.9); Calcium 8.3 mg/dL (8.5-10.5); Carbon Dioxide 29 mmol/L (22-29); Chloride 106 mmol/L (98-107); Creatine Phosphokinase 161 U/L (39-308); Globulin 2.2 g/dL (1.3-4.6); Glucose 102 mg/dL (65-115); Magnesium 1.6 mg/dL (1.7-2.3); Osmolality Calculated 299 mOsm/kg (285-295); Potassium 3.9 mmol/L (3.5-5.1); Sodium 144 mmol/L (136-145); Total Bilirubin 0.7 mg/dL (0.15-1.2); Total Protein 5.5 g/dL (6.6-8.7)
[2020-02-17] MEDS: haloperidol inj 5 mg/mL INJ 1 mL 2 MG IM (07:38)
[2020-02-17] MEDS: enoxaparin 40 mg/0.4 mL Syringe SUBCUT (09:24)
[2020-02-17] MEDS: OLANZapine 5 mg TABLET 10 MG PO ×2 (09:24→21:36)
[2020-02-17] MEDS: doxycycline 100 mg Tablet PO (09:26)
[2020-02-17] MEDS: donepezil 5 MG Tablet 10 MG PO (09:26)
[2020-02-17] MEDS: citalopram 20 mg Tablet 40 MG PO (09:27)
[2020-02-17] MEDS: atorvastatin 40 mg Tablet 20 MG PO (09:27)
[2020-02-17] MEDS: zinc gluconate 50 mg Tablet PO (09:27)
[2020-02-17] MEDS: clopidogrel 75 mg Tablet PO (09:27)
[2020-02-17] MEDS: ascorbic acid 500 mg Tablet PO ×2 (09:27→18:37)
[2020-02-17] MEDS: allopurinol 300 mg Tablet PO (09:27)
[2020-02-17] MEDS: pantoprazole DR 40 mg Tablet PO (09:28)
--- NOTE | 2020-02-17 11:46 | PC.SOCIAL ---
IMM Updated Updated pt's on Pg 2 IMM, via phone. Provided pt care nurse a copy to give to pt. No questions voiced. Signed, dated, & timed copy in chart.
[2020-02-17] MEDS: predniSONE 20 mg Tablet 40 MG PO (12:20)
[2020-02-17 12:34] LABS: Glucose Point of Care 144 mg/dL (70-110)
--- NOTE | 2020-02-17 12:39 | P.PN_ITS ---
Subjective Subjective: Interval history: This morning patient was examined, he had a difficult night, and was quite agitated, was quite physical with the nursing staff, continues to have episodes of delirium and agitation, currently sleeping I had a discussion with patient's , who is admitted, next-door to the patient, in terms of goals of care -She tells me that he does have episodes of agitation as outpatient, but has never been physical -Does have episodes of confusion, and slowly declining cognitive functioning -I advised that he has an had a significant meal in the last 48 hours, I discussed options such as hospice versus PEG tube placement -She states that she would think about this, come to a decision in the next 24 hours or so Vitals/I&O/Wt Last Vital Signs Temp 100.3 F H 02/17/20 12:00 Pulse 98 02/17/20 12:00 Resp 30 H 02/17/20 12:00 BP 155/82 02/17/20 12:00 Pulse Ox 90 02/17/20 12:00 02/16/20 02/17/20 02/17/20 22:59 06:59 14:59 Intake Total 1000 / 1120 240 / 240 Output Total 300 / 300 200 / 500 Balance -300 / -180 800 / 620 240 / 240 Physical Exam Const: COMMON NORMALS: no acute distress ORIENTATION/CONSCIOUSNESS: Yes awake and Yes confused; not oriented to person, not oriented to place and not oriented to time Neck/C-Spine: COMMON NORMALS: no JVD Resp: COMMON NORMALS: normal respiratory effort, No retractions, No use of accessory muscles and clear to auscultation bilaterally AUSCULTATION: clear to auscultation bilaterally Cardio: COMMON NORMALS: no JVD, regular rate, regular rhythm, S1 normal heart sound present and S2 normal heart sound present RATE: regular rate RHYTHM: regular rhythm HEART SOUNDS: S1 normal heart sound present and S2 normal heart sound present GI: COMMON NORMALS: Normal to inspection, nondistended, normoactive bowel sounds present, Soft to palpation, non-tender and No hepatosplenomegaly present PALPATION: Yes Soft to palpation and Yes No hepatosplenomegaly present Extremity: NARRATIVE EXTREMITY EXAM: Right lower extremity in a splint Neuro: SENSORIUM/ORIENTATION: No oriented to person, No oriented to place and No oriented to time Data : 02/17/20 04:15 02/17/20 04:15 Micro: Microbiology 02/11/20 20:01 Blood Culture - Final Blood NO GROWTH AFTER 5 DAYS A&P Assessment and plan (1) Acute delirium: Likely secondary to Covid, in the face of underlying dementia Psychiatry consultation is appreciated Had agitation and combative episodes during the night according to nursing staff, which persist Increased Zyprexa to 10 mg twice daily Haldol as needed Ativan as needed If required might have to switch to Geodon QTC 474 ms Seroquel 100 mg at bedtime, did not take dose last night due to confusion Celexa 40 mg daily Status: Acute (2) Ankle fracture: non displaced fibular fracture Appreciate orthopedic consultation Currently in a splint, nonweightbearing will need to follow-up with Ortho as outpatient, Status: Acute Qualifiers: Encounter type: initial encounter Fracture type: closed Laterality: unspecified laterality Qualified Code(s): S82.899A - Other fracture of unspecified lower leg, initial encounter for closed fracture (3) COVID-19: Continue remdesivir, dexamethasone Zinc/vit C, Advair inhaler, CTA did not demonstrate pulmonary embolism. Changes consistent with Covid were noted. Hold Decadron for now, due to concerns for neuro agitation Repeat inflammatory levels tomorrow Status: Acute (4) Hypertension: Status: Acute (5) Hyperlipidemia: Status: Acute (6) Alzheimer's dementia: Recently with significant agitation at baseline in the last 2 weeks but memory impairment has been going on years. Status: Acute Qualifiers: Alzheimer's disease onset: late-onset Dementia behavioral disturbance: with behavioral disturbance Qualified Code(s): G30.1 - Alzheimer's disease with late onset; F02.81 - Dementia in other diseases classified elsewhere with behavioral disturbance (7) Diabetes: insulin sliding scale Status: Acute (8) CKD (chronic kidney disease): Status: Acute Additional A&P Information Plan for today a bit somnolent, no episodes of agitation during my examination DNR/DNI Lovenox for DVT prophylaxis Attestations Medical Necessity Statement*: Patient requires hospitalization for acute delirium, COVID-19 pneumonia, awaiting shelter placement Coding Level of Care Code Acute Medical Anthropology Director for [facility] Diagnoses Acute delirium R41.0 Ankle fracture S82.899A Encounter type: initial encounter Fracture type: closed Laterality: unspecified laterality COVID-19 U07.1 Hypertension I10 Hyperlipidemia E78.5 Alzheimer's dementia G30.1; F02.81 Alzheimer's disease onset: late-onset Dementia behavioral disturbance: with behavioral disturbance Diabetes E11.9 CKD (chronic kidney disease) N18.9
[2020-02-17 17:23] LABS: Glucose Point of Care 206 mg/dL (70-110)
[2020-02-17] MEDS: cloNIDine 0.1 mg Tablet PO (18:37)
[2020-02-17] MEDS: amoxicillin-clav 875-125 mg Tablet 1 TAB PO (18:37)
--- NOTE | 2020-02-17 20:02 | PM.NPN ---
Subjective NPU Subjective: Interval history: nuria presented today somewhat confused but able to answer questions with some repeating as he seemed hard of hearing. He identified that he was in the hospital but did not recall that he was . Or his 's name. He denied having any complaints and was not having any aggression or agitation. There was 1 incident reported seem to respond well to Haldol otherwise he denied any issues and the staff reports he had a fairly decent 24 hours. Mental Status Exam MSE Comments: This is an obese elderly white male in the hospital bed with poor grooming but adequate eye contact. With a nasal cannula in. Somewhat labored breathing cooperative with exam and no acute distress. Speech was limited and decreased rate and volume. Mood described as okay affect subdued. Thought process linear. Thought content: Patient denied any suicidal or homicidal ideation, he did not appear to be attending to internal stimuli. Attention and concentration were mostly intact and memory was impaired but none were formally tested. He was alert and oriented to person and place. Insight and judgment were impaired impulse control appeared fair. Vitals/I&O/Wt Last Vital Signs Temp 98.6 F 02/17/20 23:49 Pulse 83 02/17/20 23:49 Resp 24 H 02/17/20 23:49 BP 143/74 02/17/20 23:49 Pulse Ox 93 02/17/20 23:49 02/17/20 02/17/20 02/18/20 14:59 22:59 06:59 Intake Total 480 / 480 Output Total 320 / 320 0 / 320 Balance 160 / 160 0 / 160 Data NPU : 02/18/20 03:59 02/18/20 03:59 A&P Assessment and plan (1) Ankle fracture: Status: Acute Qualifiers: Encounter type: initial encounter Fracture type: closed Laterality: unspecified laterality Qualified Code(s): S82.899A - Other fracture of unspecified lower leg, initial encounter for closed fracture (2) Acute delirium: Status: Acute (3) Alzheimer's dementia: Status: Acute Qualifiers: Alzheimer's disease onset: late-onset Dementia behavioral disturbance: with behavioral disturbance Qualified Code(s): G30.1 - Alzheimer's disease with late onset; F02.81 - Dementia in other diseases classified elsewhere with behavioral disturbance (4) Hypertension: Status: Acute (5) Hyperlipidemia: Status: Acute (6) Diabetes: Status: Acute (7) CKD (chronic kidney disease): Status: Acute (8) COVID-19: Status: Acute Additional A&P Information This is an 84-year-old white male with COVID-19 and a history of dementia and likely delirium secondary to his acute infection who presents having had a somewhat better day the last 24 hours. 1. Continue current medication. He seemed to respond well to the medications overall and only had one episode. I would continue the current recommendations from Dr. Orellana. 2. We will continue to follow. Attestations NPU Medical Necessity Statement*: N/A. Please see primary team note for medical necessity. Coding Level of Care Code Acute Damage Inside Adjuster for Jose Alejandrog Fwd Diagnoses Ankle fracture S82.898R Encounter type: initial encounter Fracture type: closed Laterality: unspecified laterality Acute delirium R41.0 Alzheimer's dementia G30.1; F02.81 Alzheimer's disease onset: late-onset Dementia behavioral disturbance: with behavioral disturbance Hypertension I10 Hyperlipidemia E78.5 Diabetes E11.9 CKD (chronic kidney disease) N18.9 COVID-19 U07.1
[2020-02-17] MEDS: quetiapine 100 mg Tablet PO (21:36)
[2020-02-17 21:49] LABS: Glucose Point of Care 231 mg/dL (70-110)
[2020-02-18] VITALS (9 sets, daily range): BP systolic 121–152; BP diastolic 65–91; PULSE 53–96; RESP 20–24; TEMP 36.5–37.1; O2SAT 91–94
[2020-02-18 04:33] LABS: Eosinophils % 0.3 %; Hematocrit 51.3 % (42.0-52.0); Hemoglobin 16.1 g/dL (11.7-16.6); Lymphocytes # 0.5 10^3/uL (0.8-4.8); Lymphocytes % 13.3 %; Mean Corpuscular HGB Conc 31.4 g/dL (30.0-36.0); Mean Corpuscular Hemoglobin 28.4 pg (28.0-34.0); Mean Corpuscular Volume 90.6 fL (80-94); Monocytes # 0.4 10^3/uL (0.2-0.9); Monocytes % 11.6 %; Neutrophils # 2.67 10^3/uL (1.8-7.7); Nucleated Red Blood Cells % 0 %; Platelet Count 146 10^3/cmm (130-400); Red Blood Count 5.66 10^6/uL (4.1-5.3); Red Cell Distribution Width 12.7 % (12.1-15.1); White Blood Count 3.6 10^3/uL (4.0-10.0)
[2020-02-18 04:58] LABS: Alanine Aminotransferase 26 U/L (0-41); Albumin Level 3.2 g/dL (3.5-5.2); Alkaline Phosphatase 76 IU/L (40-130); Aspartate Amino Transferase 32 U/L (0-40); Blood Urea Nitrogen 16 mg/dL (8-23); Calcium 8.6 mg/dL (8.5-10.5); Carbon Dioxide 28 mmol/L (22-29); Chloride 105 mmol/L (98-107); Globulin 2.6 g/dL (1.3-4.6); Glucose 156 mg/dL (65-115); Magnesium 1.8 mg/dL (1.7-2.3); Osmolality Calculated 300 mOsm/kg (285-295); Phosphorus 2.7 mg/dL (2.5-4.5); Sodium 143 mmol/L (136-145); Total Bilirubin 0.7 mg/dL (0.15-1.2); Total Protein 5.8 g/dL (6.6-8.7)
[2020-02-18 05:01] LABS: Anion Gap 14.1 (5-19); Potassium 4.1 mmol/L (3.5-5.1)
[2020-02-18 07:01] LABS: Glucose Point of Care 168 mg/dL (70-110)
[2020-02-18] MEDS: amoxicillin-clav 875-125 mg Tablet 1 TAB PO ×2 (08:36→17:50)
[2020-02-18] MEDS: atorvastatin 40 mg Tablet 20 MG PO (08:36)
[2020-02-18] MEDS: allopurinol 300 mg Tablet PO (08:36)
[2020-02-18] MEDS: citalopram 20 mg Tablet 40 MG PO (08:36)
[2020-02-18] MEDS: clopidogrel 75 mg Tablet PO (08:36)
[2020-02-18] MEDS: donepezil 5 MG Tablet 10 MG PO (08:36)
[2020-02-18] MEDS: predniSONE 20 mg Tablet 40 MG PO (08:36)
[2020-02-18] MEDS: OLANZapine 5 mg TABLET 10 MG PO ×2 (08:37→20:47)
[2020-02-18] MEDS: zinc gluconate 50 mg Tablet PO (08:37)
[2020-02-18] MEDS: enoxaparin 40 mg/0.4 mL Syringe SUBCUT (08:37)
[2020-02-18] MEDS: pantoprazole DR 40 mg Tablet PO (08:37)
[2020-02-18] MEDS: amlodipine 10 mg Tablet PO (08:37)
[2020-02-18] MEDS: ascorbic acid 500 mg Tablet PO ×2 (08:37→17:50)
[2020-02-18] MEDS: cloNIDine 0.1 mg Tablet PO ×2 (08:37→17:50)
[2020-02-18 10:51] LABS: Glucose Point of Care 305 mg/dL (70-110)
--- NOTE | 2020-02-18 15:40 | PM.PN ---
Subjective Subjective: Interval history: Patient is much more alert and calm this morning, tells me he is doing okay, no agitation episodes overnight, does follow some commands, but still confused Vitals/I&O/Wt Last Vital Signs Temp 98.6 F 02/18/20 15:23 Pulse 77 02/18/20 15:23 Resp 24 H 02/18/20 15:23 BP 150/82 02/18/20 15:23 Pulse Ox 92 02/18/20 15:23 02/18/20 02/18/20 02/18/20 06:59 14:59 22:59 Intake Total 320 / 320 Output Total 200 / 200 Balance 120 / 120 Physical Exam Const: COMMON NORMALS: no acute distress ORIENTATION/CONSCIOUSNESS: Yes awake, Yes oriented to person and Yes confused; not oriented to place and not oriented to time HENMT: COMMON NORMALS: normocephalic HEAD & SCALP: normocephalic Neck/C-Spine: COMMON NORMALS: no JVD Resp: COMMON NORMALS: normal respiratory effort, No retractions, No use of accessory muscles and clear to auscultation bilaterally AUSCULTATION: clear to auscultation bilaterally Cardio: COMMON NORMALS: no JVD, regular rate, regular rhythm, S1 normal heart sound present and S2 normal heart sound present RATE: regular rate RHYTHM: regular rhythm HEART SOUNDS: S1 normal heart sound present and S2 normal heart sound present GI: COMMON NORMALS: Normal to inspection, nondistended, normoactive bowel sounds present, Soft to palpation, non-tender, No hepatosplenomegaly present, no masses and no bruits PALPATION: Yes Soft to palpation and Yes No hepatosplenomegaly present Extremity: COMMON NORMALS: capillary refill normal, no clubbing, cyanosis or edema, no calf tenderness and no pedal edema Neuro: SENSORIUM/ORIENTATION: Yes oriented to person, No oriented to place and No oriented to time Psych: COMMON NORMALS: mental status grossly normal Data : 02/18/20 03:59 02/18/20 03:59 A&P Assessment and plan (1) Acute delirium: Likely secondary to Covid, in the face of underlying dementia Psychiatry consultation is appreciated Much more calm this morning, answer some questions appropriately Increased Zyprexa to 10 mg twice daily Haldol as needed Ativan as needed If required might have to switch to Geodon QTC 474 ms Seroquel 100 mg at bedtime Celexa 40 mg daily Status: Acute (2) Ankle fracture: non displaced fibular fracture Appreciate orthopedic consultation Currently in a splint, nonweightbearing will need to follow-up with Ortho as outpatient, Status: Acute Qualifiers: Encounter type: initial encounter Fracture type: closed Laterality: unspecified laterality Qualified Code(s): S82.899A - Other fracture of unspecified lower leg, initial encounter for closed fracture (3) COVID-19: Continue remdesivir, dexamethasone Zinc/vit C, Advair inhaler, CTA did not demonstrate pulmonary embolism. Changes consistent with Covid were noted. Hold Decadron for now, due to concerns for neuro agitation Repeat inflammatory levels tomorrow Status: Acute (4) Hypertension: Status: Acute (5) Hyperlipidemia: Status: Acute (6) Alzheimer's dementia: Recently with significant agitation at baseline in the last 2 weeks but memory impairment has been going on years. Status: Acute Qualifiers: Alzheimer's disease onset: late-onset Dementia behavioral disturbance: with behavioral disturbance Qualified Code(s): G30.1 - Alzheimer's disease with late onset; F02.81 - Dementia in other diseases classified elsewhere with behavioral disturbance (7) Diabetes: insulin sliding scale Status: Acute (8) CKD (chronic kidney disease): Status: Acute Additional A&P Information Plan for today is to wait halfway placement DNR/DNI Lovenox for DVT prophylaxis Attestations Medical Necessity Statement*: Patient requires hospitalization for COVID-19, acute delirium, dementia, awaiting halfway placement Coding Level of Care Code Acute Blasting Entryman for [facility] Rob Diagnoses Acute delirium R41.0 Ankle fracture S82.898X Encounter type: initial encounter Fracture type: closed Laterality: unspecified laterality COVID-19 U07.1 Hypertension I10 Hyperlipidemia E78.5 Alzheimer's dementia G30.1; F02.81 Alzheimer's disease onset: late-onset Dementia behavioral disturbance: with behavioral disturbance Diabetes E11.9 CKD (chronic kidney disease) N18.9
--- NOTE | 2020-02-18 16:09 | P.PN_ITS ---
Subjective NPU Subjective: Interval history: Wei was essentially sleeping very well and so was not disturbed for the sake of additional antibiotics. That being said there are reports from the sitter and the staff and of care form over the last 24 hours indicate that the possible improvement in clarity and reduction in aggressiveness that I witnessed last night might be trending. He did not have any episodes of aggression, they report his medication has appeared effective, sitter reports to be pleasantly conversant this morning prior to getting medication that likely had a sedative effect. Otherwise there were no concerns. Mental Status Exam MSE Comments: This is an obese elderly white male in the hospital bed with poor grooming. With a nasal cannula in. Somewhat less labored breathing. He was not readily and easily arousable but in no acute distress. Speech was absent. Mood not described and he appeared relatively peaceful. Thought process not noted. Thought content: Not noted. He was sleeping and was allowed to stay asleep given the difficulties he has had over the past several nights. Vitals/I&O/Wt Last Vital Signs Temp 98.6 F 02/18/20 15:23 Pulse 77 02/18/20 15:23 Resp 24 H 02/18/20 15:23 BP 150/82 02/18/20 15:23 Pulse Ox 92 02/18/20 15:23 02/18/20 14:59 Intake Total 320 / 320 Output Total 200 / 200 Balance 120 / 120 Data NPU : 02/19/20 04:45 02/19/20 04:45 A&P Additional A&P Information (1) Ankle fracture: (2) Acute delirium: (3) Alzheimer's dementia: (4) Hypertension: (5) Hyperlipidemia: (6) Diabetes: (7) CKD (chronic kidney disease): (8) COVID-19: This is an 84-year-old white male with COVID-19 and a history of dementia and likely delirium secondary to his acute infection who presents having had a somewhat better day the last 24 hours. 1. Continue current medication. He seemed to respond well to the medications w ith no new episodes of aggression or agitation. I would continue the current recommendations from Dr. Orellana. May be able to start to reduce the dose of the medications if he continues to get tired after the dosing, starting with the morning doses. 2. We will continue to follow. Attestations NPU Medical Necessity Statement*: N/A. Please see primary team note for medical necessity. Coding Level of Care Code Acute Accident Report Clerk for Navjot Rivas
[2020-02-18 16:58] LABS: Glucose Point of Care 176 mg/dL (70-110)
[2020-02-18 20:38] LABS: Glucose Point of Care 217 mg/dL (70-110)
[2020-02-18] MEDS: quetiapine 100 mg Tablet PO (20:47)
--- NOTE | 2020-02-18 23:56 | PC.NURSE ---
Pt currently resting quietly, and has been the entire shift thus far. Any interaction with patient has been with out issue. At this time sitter pulled for use elsewhere for a more acute situation, and bed alarm set.
[2020-02-19] VITALS (10 sets, daily range): BP systolic 121–156; BP diastolic 75–82; PULSE 71–90; RESP 16–24; TEMP 36.6–37.1; O2SAT 86–94
[2020-02-19 05:18] LABS: Basophils % 0.2 %; Eosinophils % 0.5 %; Hematocrit 51.5 % (42.0-52.0); Hemoglobin 16.4 g/dL (11.7-16.6); Lymphocytes # 0.4 10^3/uL (0.8-4.8); Lymphocytes % 7.4 %; Mean Corpuscular HGB Conc 31.8 g/dL (30.0-36.0); Mean Corpuscular Hemoglobin 28.8 pg (28.0-34.0); Mean Corpuscular Volume 90.4 fL (80-94); Monocytes # 0.5 10^3/uL (0.2-0.9); Neutrophils % 82.5 %; Nucleated Red Blood Cells % 0 %; Platelet Count 186 10^3/cmm (130-400); Red Cell Distribution Width 12.9 % (12.1-15.1); White Blood Count 5.7 10^3/uL (4.0-10.0)
[2020-02-19 05:40] LABS: Alanine Aminotransferase 25 U/L (0-41); Albumin Level 3.3 g/dL (3.5-5.2); Alkaline Phosphatase 79 IU/L (40-130); Anion Gap 14.2 (5-19); Aspartate Amino Transferase 23 U/L (0-40); Blood Urea Nitrogen 25 mg/dL (8-23); Calcium 8.9 mg/dL (8.5-10.5); Carbon Dioxide 29 mmol/L (22-29); Chloride 104 mmol/L (98-107); Globulin 2.7 g/dL (1.3-4.6); Glucose 191 mg/dL (65-115); Magnesium 1.9 mg/dL (1.7-2.3); Osmolality Calculated 306 mOsm/kg (285-295); Phosphorus 3.6 mg/dL (2.5-4.5); Potassium 4.2 mmol/L (3.5-5.1); Sodium 143 mmol/L (136-145); Total Bilirubin 0.6 mg/dL (0.15-1.2)
[2020-02-19 06:58] LABS: Glucose Point of Care 150 mg/dL (70-110)
[2020-02-19] MEDS: enoxaparin 40 mg/0.4 mL Syringe SUBCUT (08:36)
[2020-02-19] MEDS: clopidogrel 75 mg Tablet PO (08:37)
[2020-02-19] MEDS: predniSONE 20 mg Tablet 40 MG PO (08:37)
[2020-02-19] MEDS: amlodipine 10 mg Tablet PO (08:37)
[2020-02-19] MEDS: pantoprazole DR 40 mg Tablet PO (08:37)
[2020-02-19] MEDS: OLANZapine 5 mg TABLET 10 MG PO (08:37)
[2020-02-19] MEDS: donepezil 5 MG Tablet 10 MG PO (08:37)
[2020-02-19] MEDS: cloNIDine 0.1 mg Tablet PO (08:37)
[2020-02-19] MEDS: citalopram 20 mg Tablet 40 MG PO (08:37)
[2020-02-19] MEDS: allopurinol 300 mg Tablet PO (08:37)
[2020-02-19] MEDS: amoxicillin-clav 875-125 mg Tablet 1 TAB PO (08:37)
[2020-02-19] MEDS: zinc gluconate 50 mg Tablet PO (08:37)
[2020-02-19] MEDS: ascorbic acid 500 mg Tablet PO (08:38)
[2020-02-19] MEDS: atorvastatin 40 mg Tablet 20 MG PO (08:38)
[2020-02-19 10:48] LABS: Glucose Point of Care 197 mg/dL (70-110)
--- NOTE | 2020-02-19 13:22 | P.DS_ITS ---
Discharge Providers Date of Admission: 02/12/20 00:18 Date of Discharge: February 19, 2020 Attending Provider at Admission: Rizwana Ling MD Attending Provider at Discharge: Aden Cota MD Primary Care Provider: Heather Bello MD Diagnoses at Discharge Discharge Diagnosis (1) Acute delirium: Status: Acute (2) Ankle fracture: Status: Acute Qualifiers: Encounter type: initial encounter Fracture type: closed Laterality: unspecified laterality Qualified Code(s): S82.899A - Other fracture of unspecified lower leg, initial encounter for closed fracture (3) COVID-19: Status: Acute (4) Hypertension: Status: Acute (5) Hyperlipidemia: Status: Acute (6) Alzheimer's dementia: Status: Acute Qualifiers: Alzheimer's disease onset: late-onset Dementia behavioral disturbance: with behavioral disturbance Qualified Code(s): G30.1 - Alzheimer's disease with late onset; F02.81 - Dementia in other diseases classified elsewhere with behavioral disturbance (7) Diabetes: Status: Acute (8) CKD (chronic kidney disease): Status: Acute Reason for Visit Reason for Visit: FALL, ANKLE PAIN Hospital Course Hospital Course This is a 84-year-old male with a past medical history of Alzheimer's dementia, CKD, diabetes, hyperlipidemia, hypertension who presents to [facility] due to mechanical fall, confusion, altered mental status Patient was admitted to [facility] for delirium, with acute hypoxic respiratory failure secondary to COVID-19 pneumonia, aspiration pneumonia, was admitted to the general medical floors Covid unit, received remdesivir, Decadron therapy, oxygen therapy, vitamin C, zinc, Advair 2 albuterol, patient clinically improved. Patient will be discharged on 4 L nasal cannula, steroid burst, Augmentin for aspiration pneumonia, Advair, albuterol, vitamin C, zinc. I had a discussion with patient's about hypercoagulability prophylaxis in COVID-19 patients, although there is no good randomized clinical regards to anticoagulation for COVID-19 patients after hospital discharge, case reports have shown a significant increase in the risk of DVTs, PEs, MIs, strokes. On the one hand he does have significant risk of hypercoagulability, but he does have risk of GI bleeds and/or significant bleeding associate with trauma such as a fall. After discussion risk and benefits, she voiced understanding all questions answered, agreed to proceed with anticoagulation Eliquis 2.5 mg twice daily Patient had severe delirium during his hospitalization, on top of Alzheimer dementia during his hospitalization, multiple medication regimens were tried, what worked for him was Zyprexa 10 mg twice daily, Seroquel 50 mg at bedtime. Celexa 40 mg daily his QTC was 474 ms. For the last 48 hours before discharge, patient remains alert, awake, answers some questions appropriately, does follow some commands, no episodes of agitation, no episodes of confusion, he was doing quite well. No as needed Ativan or Haldol were required in the last 48 hours. I have discharged him on Zyprexa 10 mg twice daily, Seroquel 50 mg at bedtime, Celexa 40 mg daily. Preferably Haldol as needed according to nursing no protocol. I would avoid Ativan in him, as based on my experience with him it increases his agitation. For his nondisplaced fibula fracture, orthopedic recommended nonweightbearing in the right lower extremity, right ankle was splinted, follow-up with orthopedics in 2 weeks Discharge Data Data Completed and Pending: Completed Studies During Hospitalization Category Date Time Status CT angio chest PE protcl 20046 Rout ine Cat Scan 02/12/20 10:[address] head wo con* 7 0450 Urgent Cat Scan 02/11/20 19:49 Completed XR ankle RT 2V 73 600 Routine Exams 02/12/20 12:48 Completed XR chest 1V ambreen ble [id number] Routine Exams 02/15/20 07:00 Completed XR chest 1V ambreen ble 05360 Stat Exams 02/11/20 19:49 Completed XR foot RT min 3V * [id number] Stat Exams 02/11/20 19:49 Completed Pending at discharge Category Date Time Status Complete Blood Co unt w/Auto AM LABS Lab 02/20/20 04:00 Ordered Comprehensive Met abolic Panel AM LA BS Lab 02/20/20 04:00 Ordered Magnesium AM LABS Lab 02/20/20 04:00 Ordered Phosphorus AM LAB S Lab 02/20/20 04:00 Ordered Labs from last 24 hours 02/19/20 02/19/20 02/19/20 10:31 06:24 04:45 WBC RBC Hgb Hct MCV MCH MCHC RDW Plt Count MPV Neut % (Auto) Lymph % (Auto) [place] % (Auto) Eos % (Auto) Baso % (Auto) Neut # (Auto) Lymph # (Auto) [place] # (Auto) Eos # (Auto) Baso # (Auto) Nucleated RBC % (a uto) Nucleated RBCs # Sodium 143 Potassium 4.2 Chloride 104 Carbon Dioxide 29 Anion Gap 14.2 BUN 25 H Creatinine 0.8 GFR Calculation Not Reportable Glucose 191 H POC Glucose 197 150 Calculated Osmolal ity 306 H Calcium 8.9 Phosphorus 3.6 Magnesium 1.9 Total Bilirubin 0.6 AST 23 ALT 25 Alkaline Phosphata se 79 Total Protein 6.0 L Albumin 3.3 L Globulin 2.7 02/19/20 02/18/20 02/18/20 04:45 20:26 16:49 WBC 5.7 RBC 5.70 H Hgb 16.4 Hct 51.5 MCV 90.4 MCH 28.8 MCHC 31.8 RDW 12.9 Plt Count 186 MPV 10.0 Neut % (Auto) 82.5 Lymph % (Auto) 7.4 [place] % (Auto) 9.0 Eos % (Auto) 0.5 Baso % (Auto) 0.2 Neut # (Auto) 4.70 Lymph # (Auto) 0.4 L [place] # (Auto) 0.5 Eos # (Auto) 0.0 Baso # (Auto) 0.0 Nucleated RBC % (a uto) 0 Nucleated RBCs # 0.0 Sodium Potassium Chloride Carbon Dioxide Anion Gap BUN Creatinine GFR Calculation Glucose POC Glucose 217 176 Calculated Osmolal ity Calcium Phosphorus Magnesium Total Bilirubin AST ALT Alkaline Phosphata se Total Protein Albumin Globulin Vitals: Last Vital Signs Temp 98.8 F 02/19/20 12:00 Pulse 75 02/19/20 12:00 Resp 20 H 02/19/20 12:00 BP 156/82 02/19/20 12:00 Pulse Ox 92 02/19/20 12:00 Discharge Plan Discharge Patient Disposition: Xfer SNF Condition: Stable Prescriptions: New pantoprazole 40 mg Tablet,Delayed Release (Dr/Ec) 40 mg PO DAILY 30 Days Qty: 30 RF: 0 acetaminophen 325 mg Tablet 650 mg PO Q6H PRN (Reason: Mild/Mod Pain Or Temp >/= 101) 30 Days Qty: 30 RF: 0 ascorbic acid (vitamin C) [Vitamin C] 500 mg Tablet 500 mg PO BID 30 Days Qty: 60 RF: 0 quetiapine 100 mg Tablet 50 mg PO BEDTIME 30 Days Qty: 30 RF: 0 clonidine HCl 0.1 mg Tablet 0.1 mg PO BID 30 Days Qty: 60 RF: 0 olanzapine 5 mg Tablet 10 mg PO Q12H 30 Days Qty: 120 RF: 0 fluticasone propion-salmeterol [Advair Diskus] 250-50 mcg/dose Blister With Device 1 ea inhalation BID.RESPIRATORY Qty: 60 RF: 0 zinc gluconate 50 mg Tablet 50 mg PO DAILY 30 Days Qty: 30 RF: 0 insulin aspart U-100 [Novolog U-100 Insulin aspart] 100 unit/mL Solution See Rx Instructions .ROUTE .COMPLEX Qty: 10 RF: 1 prednisone 20 mg Tablet 40 mg PO DAILY 5 Days Qty: 10 RF: 0 amoxicillin-pot clavulanate 875-125 mg Tablet 1 tab PO BID 7 Days Qty: 14 RF: 0 Eliquis 2.5 mg tablet 2.5 mg PO BID 30 Days Qty: 60 RF: 0 aspirin 81 mg tablet,delayed release (DR/EC) 81 mg PO DAILY 30 Days Qty: 30 RF: 0 albuterol sulfate 90 mcg/actuation HFA aerosol inhaler 1 inh inhalation Q6H PRN (Reason: shortness of breath or wheezing) Qty: 18 RF: 0 Continued citalopram 40 mg tablet 40 mg PO DAILY RF: 0 donepezil 10 mg tablet 10 mg PO DAILY RF: 0 amlodipine 2.5 mg tablet 2.5 mg PO DAILY RF: 0 lovastatin 10 mg tablet 10 mg PO DAILY RF: 0 allopurinol 300 mg tablet 300 mg PO DAILY RF: 0 metformin 500 mg tablet extended release 24 hr 500 mg PO DAILY RF: 0 lisinopril 2.5 mg tablet 2.5 mg PO DAILY RF: 0 Discontinued quetiapine [Seroquel] 50 mg tablet 50 mg PO DAILY Qty: 30 RF: 5 clopidogrel 75 mg tablet 75 mg PO DAILY RF: 0 Discharge Orders: Discharge Order (Routine); Ordered 02/19/20 Ordered By: Aden Cota Other Ambulatory Orders: Complete Blood Count w/Auto (Routine) Timeframe: 1 Week Location: Determined by Patient Ordered By: Aden Cota Referrals: Randy Santiago DO [Physician] - 7-10 days Discharge Diet: As Directed Discharge Activity: Limit activity as instructed Activity Restrictions/Additional Instructions: -For ankle fracture, nonweightbearing right lower extremities, follow-up Ortho in 2 weeks, currently in a splint -For COVID-19, oxygen therapy, Advair, albuterol, vitamin C, zinc -Eliquis for hypercoagulability -Augmentin for aspiration pneumonia -For dementia, agitation, Zyprexa 10 mg every 12 hours as needed, Seroquel 50 mg at bedtime Discharge Attestations Time Spent in Discharge Care*: less than 30 min Quality Metrics Clinical Quality Measures During this hospital stay, did patient experience: None Coding Level of Care Code Acute Director Ship for Navjot Rivas Diagnoses Acute delirium R41.0 Ankle fracture S82.890C Encounter type: initial encounter Fracture type: closed Laterality: unspecified laterality COVID-19 U07.1 Hypertension I10 Hyperlipidemia E78.5 Alzheimer's dementia G30.1; F02.81 Alzheimer's disease onset: late-onset Dementia behavioral disturbance: with behavioral disturbance Diabetes E11.9 CKD (chronic kidney disease) N18.9
[2020-02-19 16:44] LABS: Glucose Point of Care 267 mg/dL (70-110)
== END 2020-02-19 18:06 | disposition skilled nursing facility (03) | DRG 177 ==
LOC: ER 19:32 → MEDSURG 02-12 00:43
PROVIDERS: Emergency Medicine; Internal Medicine; Admitting Provider Student in an Organized Health Care Education/Training Program; Emergency Provider Physician Assistant; PCP Family Medicine; Visit Provider Family Medicine
DX: U07.1 COVID-19 (principal); J12.89 Other viral pneumonia; J96.01 Acute respiratory failure with hypoxia; J69.0 Pneumonitis due to inhalation of food and vomit; F02.81 Dementia in other diseases classified elsewhere, unspecified severity, with behavioral disturbance; F05 Delirium due to known physiological condition; S82.401A Unspecified fracture of shaft of right fibula, initial encounter for closed fracture; W19.XXXA Unspecified fall, initial encounter; G30.9 Alzheimer's disease, unspecified; E11.22 Type 2 diabetes mellitus with diabetic chronic kidney disease; I12.9 Hypertensive chronic kidney disease with stage 1 through stage 4 chronic kidney disease, or unspecified chronic kidney disease; N18.9 Chronic kidney disease, unspecified; E78.5 Hyperlipidemia, unspecified; Z79.84 Long term (current) use of oral hypoglycemic drugs
CPT/HCPCS: 12345; 36415; 36416; 70450; 71045; 71275; 73600; 73630; 80053; 81001; 82550; 82728; 82962; 83605; 83615; 83735; 83880; 84100; 84145; 84443; 84484; 85025; 85378; 86140; 87040; 87426; 93005; 94640; 96372; 96375; 97760; 99283; J1100; J1200; J1630; J1650; J1815; J2060; J2270; J3486; J3490; J7030; J7512; L1902; Q9967

== ENCOUNTER 2020-03-23 09:28 | Inpatient (IN) | payer MEDICARE, SELFPAY ==
[2020-03-23] VITALS (15 sets, daily range): BP systolic 119–163; BP diastolic 58–89; PULSE 93–133; RESP 17–31; TEMP 37.2–38.2; O2SAT 9–96; BMI 28.5
--- NOTE | 2020-03-23 09:33 | XRR_ITS ---
PROCEDURE INFORMATION: Exam: XR Chest, 1 View Exam date and time: 03/23/2020 9:35 AM Age: 84 years old Clinical indication: Dyspnea TECHNIQUE: Imaging protocol: XR of the chest Views: 1 view. COMPARISON: CR XR chest 1V portable [id number] 02/15/2020 6:30 AM FINDINGS: Lungs: There is hazy interstitial infiltrate in the right lung and left base. This might represent some interstitial edema related heart failure but an interstitial pneumonia cannot be excluded. Pleural space: Unremarkable. No pleural effusion. No pneumothorax. Heart/Mediastinum: The cardiac silhouette is enlarged. Bones/joints: Unremarkable. XR/XR chest 1V portable [id number] IMPRESSION: 1. Stable cardiomegaly. 2. Hazy interstitial infiltrates. Possible etiologies include mild interstitial edema from heart failure and interstitial pneumonia.
--- NOTE | 2020-03-23 09:35 | ECG_ITS ---
[facility] Test Date: 2020-03-23 Pat Name: Wei Locke Department: Room: Gender: Male School Health Aide: : 1935 Requested By: Dionicio Renee Order Number: [id number] Diego MD: Isaac Do M.D. Measurements Intervals [place] Rate: 118 P: 44 MO: 163 QRS: -7 QRSD: 121 T: -75 QT: 312 QTc: 438 Interpretive Statements SINUS TACHYCARDIA INFERIOR MYOCARDIAL INFARCTION , OF INDETERMINATE AGE [40+ ms Q WAVE AND/OR ST/T ABNORMALITY IN II/aVF] ANTEROLATERAL MYOCARDIAL INFARCTION , OF INDETERMINATE AGE [40+ ms Q WAVE IN I/aVL/V3-V6] Compared to ECG 02/16/2020 13:02:40 Sinus rhythm no longer present Myocardial infarct finding still present Electronically Signed On 03-23-2020 17:49:08 SELF PROPELLED MINING MACHINE OPERATOR by Isaac Do M.D. [id number]
[2020-03-23 09:46] LABS: ABG PH Result 7.28 (7.35-7.45); Arterial Blood Gas Hematocrit 43.9 % (42-52); Base Excess ABG 0.5 mmol/L (-2.0-2.0); Blood Gas Allen Test Pos; Blood Gas Operator Identificat CAK; Blood Gas Sample Site Radial, left; Blood Gas Sample Type Arterial; Carboxyhemoglobin 1.1 %THgb (0.4-20.1); HCO3 ABG 28.7 mmol/L (22-26); HGB O2 Sat 92.3 % (95-100); Oxygen Device NRB; PO2 ABG 76.7 mmHg (80.0-100.0); Total Hemoglobin 14.3 g/dL (14-18)
[2020-03-23 09:47] LABS: ABG PCO2 60.5 mmHg (35-45)
[2020-03-23 10:13] LABS: Basophils # 0.1 10^3/uL (0.0-0.1); Basophils % 0.6 %; Eosinophils # 0.1 10^3/uL (0.0-0.8); Eosinophils % 0.6 %; Hematocrit 48.6 % (42.0-52.0); Hemoglobin 14.6 g/dL (11.7-16.6); Lymphocytes # 0.9 10^3/uL (0.8-4.8); Lymphocytes % 6.7 %; Mean Corpuscular Hemoglobin 29.3 pg (28.0-34.0); Mean Corpuscular Volume 97.6 fL (80-94); Mean Platelet Volume 9.9 fL (7.4-10.4); Monocytes # 1.2 10^3/uL (0.2-0.9); Monocytes % 8.8 %; Neutrophils # 10.83 10^3/uL (1.8-7.7); Neutrophils % 82.8 %; Nucleated Red Blood Cells % 0 %; Platelet Count 316 10^3/cmm (130-400); Red Blood Count 4.98 10^6/uL (4.1-5.3); Red Cell Distribution Width 16.9 % (12.1-15.1); White Blood Count 13.1 10^3/uL (4.0-10.0)
[2020-03-23] MEDS: sodium chloride 0.9% 1,000 ML 999 ML IV (10:26)
[2020-03-23] MEDS: levofloxacin-dextrose 5 % 750 MG/150 ML PREMIX 100 MG IV (10:26)
[2020-03-23] MEDS: LORazepam 2 mg/mL INJ 1 mL 1 MG IM (10:32)
[2020-03-23 10:37] LABS: Alanine Aminotransferase 27 U/L (0-41); Albumin Level 3.9 g/dL (3.5-5.2); Alkaline Phosphatase 155 IU/L (40-130); Aspartate Amino Transferase 37 U/L (0-40); Blood Urea Nitrogen 71 mg/dL (8-23); Calcium 9.7 mg/dL (8.5-10.5); Carbon Dioxide 28 mmol/L (22-29); Chloride 112 mmol/L (98-107); Globulin 2.8 g/dL (1.3-4.6); Glucose 167 mg/dL (65-115); Osmolality Calculated 345 mOsm/kg (285-295); Sodium 155 mmol/L (136-145); Total Bilirubin 1.4 mg/dL (0.15-1.2); Total Protein 6.7 g/dL (6.6-8.7)
[2020-03-23 10:38] LABS: Troponin(5th) Baseline 76 ng/L (0-15)
--- NOTE | 2020-03-23 11:08 | ED_ITS ---
HPI - SOB/Dyspnea General: Chief Complaint: Shortness of Breath/Dyspnea Stated Complaint: AMS; SOB Time Seen by Provider: 03/23/20 09:33 Source: EMS Mode of arrival: EMS Limitations: altered mental status History of Present Illness: HPI Narrative: Patient presents from intermediate with shortness of breath and altered mental status. Patient has a history of dementia at baseline. Was febrile to 103 at the intermediate. Had Covid about a month ago. Patient was hypoxic to the low 80s initially on normal 4 L nasal cannula. Is currently on a nonrebreather and satting in the mid 90s. Review of Systems General: Reports: ROS unobtainable due to mental status PFSH ED PFSH: Medical History (Updated 03/23/20 @ 11:05 by Dionicio Renee MD) Alzheimer's dementia CKD (chronic kidney disease) Diabetes Hyperlipidemia Hypertension Family History (Updated 02/12/20 @ 06:24 by Rizwana Ling MD) Other Dementia Social History (Updated 02/12/20 @ 06:24 by Rizwana Ling MD) Smoking and tobacco status: unknown if ever smoked Physical Exam Const: COMMON NORMALS: apparent distress and negative for patient oriented x3 EXAM LIMITATIONS: altered mental status GENERAL APPEARANCE: not cooperative HENMT: MOUTH: oral and palatal mucosa not normal (Extremely dry oral mucosa with dried food embedded in the posterior pharynx) Eye: COMMON NORMALS: Equal, round and reactive pupils present and EOMs intact bilaterally PUPIL: Yes Equal, round and reactive pupils present Chest: COMMONS NORMALS: normal inspection of the chest Resp: COMMON NORMALS: negative for normal respiratory effort EFFORT & INSPECTION: Yes tachypneic AUSCULTATION: crackles Cardio: COMMON NORMALS: regular rhythm RATE: tachycardic RHYTHM: regular rhythm GI: COMMON NORMALS: Normal to inspection, nondistended, normoactive bowel sounds present, Soft to palpation, non-tender and No hepatosplenomegaly present PALPATION: Yes Soft to palpation and Yes No hepatosplenomegaly present Neuro: COMMON NORMALS: moves all extremities; negative for patient oriented x3 Course Vital Signs: Vital signs: Vital Signs Temperature 100.7 F H 03/23/20 09:30 Pulse Rate 119 H 03/23/20 10:23 Respiratory Rate 31 H 03/23/20 09:46 Blood Pressure 135/58 03/23/20 09:46 Pulse Oximetry 93 03/23/20 10:23 MDM - SOB/Dyspnea MDM Narrative: Medical decision making narrative: Patient appeared very dry with dried food in the oropharynx that required suctioning. I suspect patient aspirated. Chest x-ray shows a right perihilar infiltrate and left lower lobe atelectasis. Given IV Levaquin and IV fluids here. Also noted to be significantly hypernatremic. Discussed with Dr. Ling who accepted. Patient is DNR. Lab Data: Labs: Lab Results 03/23/20 03/23/20 03/23/20 Range/Units 09:18 09:18 09:18 WBC 13.1 H (4.0-10.0) 10^3/ uL RBC 4.98 (4.1-5.3) 10^6/u L Hgb 14.6 (11.7-16.6) g/dL Hct 48.6 (42.0-52.0) % MCV 97.6 H (80-94) fL MCH 29.3 (28.0-34.0) pg MCHC 30.0 (30.0-36.0) g/dL RDW 16.9 H (12.1-15.1) % Plt Count 316 (130-400) 10^3/c mm MPV 9.9 (7.4-10.4) fL Neut % (Auto) 82.8 % Lymph % (Auto) 6.7 % [place] % (Auto) 8.8 % Eos % (Auto) 0.6 % Baso % (Auto) 0.6 % Neut # (Auto) 10.83 H (1.8-7.7) 10^3/u L Lymph # (Auto) 0.9 (0.8-4.8) 10^3/u L [place] # (Auto) 1.2 H (0.2-0.9) 10^3/u L Eos # (Auto) 0.1 (0.0-0.8) 10^3/u L Baso # (Auto) 0.1 (0.0-0.1) 10^3/u L Nucleated RBC % (a uto) 0 % Nucleated RBCs # 0.0 /100WBC Specimen Type Sample Site ABG pH (7.35-7.45) ABG pCO2 (35-45) mmHg ABG pO2 (80.0-100.0) mmH g ABG HCO3 (22-26) mmol/L ABG Base Excess (-2.0-2.0) mmol/ L Andres Test Hematocrit (42-52) % Hgb O2 Saturation (95-100) % Carboxyhemoglobin (0.4-20.1) %THgb Methemoglobin (0.4-1.5) % Total Hemoglobin (14-18) g/dL O2 Delivery Device O2 Liters/Min % Manager Account Management ID Sodium 155 H (136-145) mmol/L Potassium 5.0 (3.5-5.1) mmol/L Chloride 112 H (98-107) mmol/L Carbon Dioxide 28 (22-29) mmol/L Anion Gap 20.0 H (5-19) BUN 71 H (8-23) mg/dL Creatinine 2.9 H (0.7-1.2) mg/dL GFR Calculation Not Reportable Glucose 167 H (65-115) mg/dL Calculated Osmolal ity 345 H (285-295) mOsm/k g Calcium 9.7 (8.5-10.5) mg/dL Total Bilirubin 1.4 H (0.15-1.2) mg/dL AST 37 (0-40) U/L ALT 27 (0-41) U/L Alkaline Phosphata se 155 H (40-130) IU/L Troponin T Baselin e 76 H (0-15) ng/L Total Protein 6.7 (6.6-8.7) g/dL Albumin 3.9 (3.5-5.2) g/dL Globulin 2.8 (1.3-4.6) g/dL 03/23/20 Range/Units 09:35 WBC (4.0-10.0) 10^3/ uL RBC (4.1-5.3) 10^6/u L Hgb (11.7-16.6) g/dL Hct (42.0-52.0) % MCV (80-94) fL MCH (28.0-34.0) pg MCHC (30.0-36.0) g/dL RDW (12.1-15.1) % Plt Count (130-400) 10^3/c mm MPV (7.4-10.4) fL Neut % (Auto) % Lymph % (Auto) % [place] % (Auto) % Eos % (Auto) % Baso % (Auto) % Neut # (Auto) (1.8-7.7) 10^3/u L Lymph # (Auto) (0.8-4.8) 10^3/u L [place] # (Auto) (0.2-0.9) 10^3/u L Eos # (Auto) (0.0-0.8) 10^3/u L Baso # (Auto) (0.0-0.1) 10^3/u L Nucleated RBC % (a uto) % Nucleated RBCs # /100WBC Specimen Type Arterial Sample Site Radial, left ABG pH 7.28 L (7.35-7.45) ABG pCO2 60.5 H* (35-45) mmHg ABG pO2 76.7 L (80.0-100.0) mmH g ABG HCO3 28.7 H (22-26) mmol/L ABG Base Excess 0.5 (-2.0-2.0) mmol/ L Andres Test Pos Hematocrit 43.9 (42-52) % Hgb O2 Saturation 92.3 L (95-100) % Carboxyhemoglobin 1.1 (0.4-20.1) %THgb Methemoglobin 1.0 (0.4-1.5) % Total Hemoglobin 14.3 (14-18) g/dL O2 Delivery Device Nrb O2 Liters/Min 15.0 % Manager Account Management ID Cak Sodium (136-145) mmol/L Potassium (3.5-5.1) mmol/L Chloride (98-107) mmol/L Carbon Dioxide (22-29) mmol/L Anion Gap (5-19) BUN (8-23) mg/dL Creatinine (0.7-1.2) mg/dL GFR Calculation Glucose (65-115) mg/dL Calculated Osmolal ity (285-295) mOsm/k g Calcium (8.5-10.5) mg/dL Total Bilirubin (0.15-1.2) mg/dL AST (0-40) U/L ALT (0-41) U/L Alkaline Phosphata se (40-130) IU/L Troponin T Baselin e (0-15) ng/L Total Protein (6.6-8.7) g/dL Albumin (3.5-5.2) g/dL Globulin (1.3-4.6) g/dL Discharge Plan Discharge Patient Disposition: Admitted As Inpatient Clinical Impression: Acute renal failure, Acute hypernatremia, Pneumonia Condition: Serious Coding Level of Care Code ED Pump Service Supervisor for Navjot Rivas
--- NOTE | 2020-03-23 11:35 | ECG_ITS ---
[facility] Test Date: 2020-03-23 Pat Name: Wei Locke Department: Room: 254 Gender: Male It Professional: : 1935 Requested By: Dionicio Renee Order Number: [id number] Diego MD: Isaac Do M.D. Measurements Intervals Heber Rate: 83 P: 24 VT: 187 QRS: 1 QRSD: 91 T: 89 QT: 379 QTc: 448 Interpretive Statements SINUS RHYTHM NONSPECIFIC ST & T-WAVE ABNORMALITY Compared to ECG 03/23/2020 10:11:08 T-wave abnormality now present Sinus tachycardia no longer present Myocardial infarct finding no longer present Electronically Signed On 03-23-2020 17:56:55 SHOT PEEN OPERATOR by Isaac Do M.D. [id number]
--- NOTE | 2020-03-23 12:19 | PM.HP ---
Providers/Chief Complaint Admitting Physician: Rizwana Ling MD Primary Care Provider: Heather Bello MD Chief Complaint: AMS; SOB History of Present Illness Wei Locke is a 84 year old male with a past medical history of Alzheimer's dementia, CKD, diabetes, hyperlipidemia, hypertension recently admitted at [facility] between 02/11 to 02/18 after presenting with delirium, with acute hypoxic respiratory failure secondary to COVID-19 pneumonia, aspiration pneumonia, was admitted to the general medical floors Covid unit, received remdesivir, Decadron therapy, oxygen therapy, vitamin C, zinc, Advair 2 albuterol, patient clinically improved. He was discharged on 4 L nasal cannula, steroid burst, Augmentin for aspiration pneumonia, Advair, albuterol, vitamin C, zinc, DVT wwith eliquis 2.5mg BID. He returns today from SNF after being found to have fever 103F, multiple episodes of emesis at the facility. He is delirious, unable to answer any questions, from my last experience with him on 02/11, even when awake patient is agitated, unable to answer questions coherently and disoriented. Review of Systems General: Reports: ROS unobtainable due to medical condition Medications/Allergies Home Medications Medication Instructions Recorded Confirmed Last Taken Type allopurinol 300 mg PO DAILY 10/03/19 02/11/20 10/02/19 History citalopram 40 mg PO DAILY 10/03/19 02/11/20 10/02/19 History donepezil 10 mg PO DAILY 10/03/19 02/11/20 10/03/19 History lisinopril 2.5 mg PO DAILY 10/03/19 02/11/20 10/02/19 History lovastatin 10 mg PO DAILY 10/03/19 02/11/20 10/02/19 History Prostat Liquid 30 ml PO BID@03/23/20 03/23/20 03/22/20 History acetaminophen [Tylenol] 650 mg PO Q6H PRN 03/23/20 03/23/20 Unknown History albuterol sulfate 0.63 mg INHALATION Q6H PRN 03/23/20 03/23/20 Unknown History apixaban [Eliquis] 2.5 mg PO BID@03/23/20 03/23/20 03/22/20 History aspirin [Aspir-81] 81 mg PO DAILY@08 03/23/20 03/23/20 03/22/20 History clonidine HCl 0.1 mg PO BID@08,03/23/20 03/23/20 03/22/20 History lorazepam [Ativan] 0.5 mg PO TID@06,14,22 03/23/20 03/23/20 03/22/20 History magnesium hydroxide [Milk of 30 ml PO PRN 03/23/20 03/23/20 Unknown History Magnesia] metformin 500 mg PO DAILY@08 03/23/20 03/23/20 03/22/20 History olanzapine 10 mg PO BID@08,03/23/20 03/23/20 03/22/20 History quetiapine 75 mg PO BID@08,03/23/20 03/23/20 03/22/20 History risperidone [Risperdal] 0.5 mg PO BID@08,03/23/20 03/23/20 03/22/20 History sodium phosphates [Enema 118 ml NM DAILY PRN 03/23/20 03/23/20 Unknown History Disposable] Allergies Allergy/AdvReac Type Severity Reaction Status Date / Time No Known Allergies Allergy Verified 03/23/20 11:09 PFSH Acute PFSH: Medical History (Updated 03/23/20 @ 12:54 by Rizwana Ling MD) Alzheimer's dementia CKD (chronic kidney disease) COVID-07 feb 2020 Diabetes Hyperlipidemia Hypertension Family History Other Dementia Social History Smoking and tobacco status: unknown if ever smoked Vitals/I&O/Wt Last Vital Signs Temp 100.7 F H 03/23/20 09:30 Pulse 119 H 03/23/20 10:23 Resp 20 H 03/23/20 11:16 BP 163/70 03/23/20 11:16 Pulse Ox 91 03/23/20 11:16 Weight last 48 hrs Weight 95.254 kg Physical Exam Narrative: EXAM NARRATIVE: General: On bipap. disoriented, agitated HEENT: PERRLA, pupils bilaterally equal and reactive, pallors not present Chest: coarse breath sounds to auscultation B/L , , equal good air entry bilaterally CVS: S1-S2 regular, no murmurs, no tachycardia, no gallops, no rubs Abdomen: Soft, distendedr, no organomegaly, bowel sounds present Neuro: unable to assess secondary to delirium, moves all extremities in bed Data : 03/23/20 09:18 03/23/20 09:18 Micro: Microbiology 03/23/20 11:20 Blood Culture - Preliminary Blood SPECIMEN COLLECTED A&P Assessment and plan (1) Sepsis: meets criteria with fever, leukocytosis, signs of end organ dysfunction by way of NIR, acute hypoxic failure source under investigation CXr with Hazy interstitial infiltrates. Possible etiologies include mild interstitial edema from heart failure and interstitial pneumonia. Noted emesis at NH, perhaps aspirated blood cx pending check UA , urine cx X ray abdomen to check for ileus vs obstruction Benign abdominal exam currently Status: Acute Qualifiers: Sepsis type: sepsis due to unspecified organism Sepsis acute organ dysfunction status: with acute organ dysfunction Severe sepsis acute organ dysfunction type: acute renal failure Acute renal failure type: unspecified Severe sepsis shock status: without septic shock Qualified Code(s): A41.9 - Sepsis, unspecified organism; R65.20 - Severe sepsis without septic shock; N17.9 - Acute kidney failure, unspecified (2) Acute renal failure: cr up to 2.9 Rooney placed monitor I/O 1/2NS @ 50cc/hr Status: Acute Qualifiers: Acute renal failure type: unspecified Qualified Code(s): N17.9 - Acute kidney failure, unspecified (3) Acute hypernatremia: likely 2/2 dehydration given emesis multiple episodes 1/2 NS @ 50cc/hr for noww NPO due to poor mental status Status: Acute (4) Alzheimer's dementia: advanced alzhheimre;s with features of delirium Last admission has protracted delirium which was difficult to control H/o multiple behavior disturbances due to patsy e continue zyprexa 10mg BID, citalopram 40 and quteapine 75 BID. prn haldol im additonally if needed Status: Acute Qualifiers: Alzheimer's disease onset: late-onset Dementia behavioral disturbance: with behavioral disturbance Qualified Code(s): G30.1 - Alzheimer's disease with late onset; F02.81 - Dementia in other diseases classified elsewhere with behavioral disturbance (5) Diabetes: ISS Status: Acute Qualifiers: Diabetes mellitus type: type 2 Diabetes mellitus keno terminal operator insulin use: with keno terminal operator use Diabetes mellitus complication status: with circulatory complication Diabetes mellitus complication detail: with other circulatory complications Qualified Code(s): E11.59 - Type 2 diabetes mellitus with other circulatory complications; Z79.4 - skilled nursing (current) use of insulin (6) CKD (chronic kidney disease): Status: Acute Qualifiers: Chronic kidney disease stage: unspecified stage Qualified Code(s): N18.9 - Chronic kidney disease, unspecified Additional A&P Information Dispo: [facility]. Tough social situtiaon, recently . Daughter recently deemed not to have capacity to make decisions, has moved to [facility]. Unlikely that patient will be able to return home after this admission unless there are caregivers at home due to his advanced dementia [facility] and [facility] notes DDVT ppx: eliquis 2.5 BID Attestations Medical Necessity Statement*: sepsis, source under eval, >2 midnight anticipated Coding Level of Care Code Acute Undergraduate Internship for g Fwd Diagnoses Sepsis A41.9; R65.20; N17.9 Sepsis type: sepsis due to unspecified organism Sepsis acute organ dysfunction status: with acute organ dysfunction Severe sepsis acute organ dysfunction type: acute renal failure Acute renal failure type: unspecified Severe sepsis shock status: without septic shock Acute renal failure N17.9 Acute renal failure type: unspecified Acute hypernatremia E87.0 Alzheimer's dementia G30.1; F02.81 Alzheimer's disease onset: late-onset Dementia behavioral disturbance: with behavioral disturbance Diabetes E11.59; Z79.4 Diabetes mellitus type: type 2 Diabetes mellitus keno terminal operator insulin use: with keno terminal operator use Diabetes mellitus complication status: with circulatory complication Diabetes mellitus complication detail: with other circulatory complications CKD (chronic kidney disease) N18.9 Chronic kidney disease stage: unspecified stage
--- NOTE | 2020-03-23 12:32 | XRR_ITS ---
PROCEDURE INFORMATION: Exam: XR Abdomen, 1 View Exam date and time: 03/23/2020 12:58 PM Age: 84 years old Clinical indication: Constipation; Additional info: Evalute for ileus TECHNIQUE: Imaging protocol: XR of the abdomen. Views: Frontal supine view of the abdomen. 1 View. COMPARISON: CT Abdomen/Pelvis Renal [id number] 04/17/2018 10:04 AM FINDINGS: Gastrointestinal tract: There are multiple loops of mildly prominent small bowel measuring up to 3 cm in diameter. The colon is not dilated. These findings are consistent with a mild ileus. Bones/joints: Degenerative changes are present in the spine with sclerosis and osteophytes. XR/XR abdomen 1V* [id number] IMPRESSION: Mild prominence of small bowel loops suggesting an ileus. No other acute abnormalities are seen.
--- NOTE | 2020-03-23 12:38 | CTR_ITS ---
PROCEDURE INFORMATION: Exam: CT Head Without Contrast Exam date and time: 03/23/2020 12:58 PM Age: 84 years old Clinical indication: Altered mental status/memory loss; Confusion or disorientation; Additional info: Evalute for intracranial bleeding TECHNIQUE: Imaging protocol: Computed tomography of the head without contrast. Radiation optimization: All CT scans at this facility use at least one of these dose optimization techniques: automated exposure control; mA and/or kV adjustment per patient size (includes targeted exams where dose is matched to clinical indication); or iterative reconstruction. COMPARISON: CT head wo con* [id number] 02/11/2020 8:11 PM RADIATION DOSE METRICS: Total DLP (mGy-cm): 666.27 FINDINGS: Brain: There is generalized chronic atrophy with generalized prominence of the ventricles and sulci. No intracranial hemorrhage, edema or other acute abnormalities are seen in the brain.. Cerebral ventricles: Prominent ventricles due to chronic atrophy. Bones/joints: Unremarkable. No acute fracture. Paranasal sinuses: Visualized sinuses are unremarkable. No fluid levels. Mastoid air cells: Visualized mastoid air cells are well aerated. Soft tissues: Unremarkable. CT/CT head wo con* [id number] IMPRESSION: Generalized chronic atrophy. No acute intracranial abnormality. Radiation Dose CTDIVOL = (mGy): DLP = 666.27 (mGy-cm)
[2020-03-23 13:17] LABS: Lactic Sepsis W/Reflex 1.3 mmol/L (0.5-2.2)
[2020-03-23 13:19] LABS: Troponin 5 2HR 52.68 ng/L (0-15)
[2020-03-23 13:52] LABS: Glucose Urine UA Norm (Normal); Ketones Urine 1+ (Negative); Protein Urine Trace (Negative); Specific Gravity, Urine 1.025 (1.005-1.030); Urine Appearance Hazy (CLEAR); Urine Color Amber (Yellow); pH Urine 5 (5-7)
[2020-03-23 13:53] LABS: Add Urine Microscopic? YES; Bilirubin Urine 2+ (Negative); Blood Urine Neg (Negative); Leukocyte Esterase Urine Negative (Negative); Nitrate Urine Negative (Negative); Urobilinogen Urine 4+ mg/dL (Negative)
[2020-03-23 13:55] LABS: NT Pro B Type Natriuretic Pept 165 pg/mL (0-450); Procalcitonin 0.14 ng/mL (0-0.5)
[2020-03-23 13:57] LABS: Squamous Epithelial Cell Urine RARE /hpf (0-5); WBC Urine 0-4 /hpf (0-5)
[2020-03-23 13:58] LABS: Amorphous Sediment Urine 2+ /hpf; Bacteria Urine 1+ /hpf; Hyaline Casts Urine 25-40 /lpf; Mucus Urine 2+ /hpf
[2020-03-23] MEDS: ipratropium-albuterol 3 mL Neb INHALATION ×2 (15:34→22:45)
[2020-03-23 16:17] LABS: Troponin 5 6HR 47.64 ng/L (0-15)
[2020-03-23 17:27] LABS: Glucose Point of Care 153 mg/dL (70-110)
[2020-03-23] MEDS: sodium chloride 0.45% 1,000 ML 50 ML IV (17:55)
[2020-03-23] MEDS: piperacillin-tazobactam 3.375 GM in sodium chloride 0.9% (plus) 50 ML IV ×2 (17:55→23:30)
[2020-03-23] MEDS: enoxaparin 40 mg/0.4 mL Syringe SUBCUT (17:55)
[2020-03-23 21:04] LABS: Glucose Point of Care 125 mg/dL (70-110)
[2020-03-23] MEDS: budesonide 0.5 mg/2 mL Neb INHALATION (22:46)
[2020-03-24] VITALS (19 sets, daily range): BP systolic 124–147; BP diastolic 72–82; PULSE 67–112; RESP 15–29; TEMP 36.8–38.3; O2SAT 92–98
--- NOTE | 2020-03-24 00:18 | XRR_ITS ---
PROCEDURE INFORMATION: Exam: XR Chest, 1 View Exam date and time: 03/24/2020 12:21 AM Age: 84 years old Clinical indication: Other: Possible aspiration TECHNIQUE: Imaging protocol: XR of the chest Views: 1 view. COMPARISON: CR (CHEST, ) 03/23/2020 9:54 AM FINDINGS: Lungs: There is no consolidation. Pleural space: There is no pleural effusion or pneumothorax. Heart/Mediastinum: There is moderate enlargement of the cardiac silhouette. Bones/joints: Bones are unremarkable. Gastrointestinal tract: There is gaseous distention of the stomach. XR/XR chest 1V portable [id number] IMPRESSION: No acute findings.
[2020-03-24 02:23] LABS: ABG PH Result 7.31 (7.35-7.45); Arterial Blood Gas Hematocrit 44.1 % (42-52); Base Excess ABG 3.1 mmol/L (-2.0-2.0); Blood Gas Allen Test Pos; Blood Gas Sample Site Radial, right; Blood Gas Sample Type Arterial; HCO3 ABG 31.2 mmol/L (22-26); Oxygen Device OXY MASK; PO2 ABG 88.5 mmHg (80.0-100.0)
[2020-03-24 02:25] LABS: ABG PCO2 61.8 mmHg (35-45)
[2020-03-24] MEDS: ondansetron 2 mg/ML SDV 2 mL 4 MG IVP (02:53)
[2020-03-24 04:52] LABS: Basophils # 0.1 10^3/uL (0.0-0.1); Basophils % 0.4 %; Eosinophils % 0.1 %; Hematocrit 46.2 % (42.0-52.0); Hemoglobin 13.6 g/dL (11.7-16.6); Lymphocytes # 1.1 10^3/uL (0.8-4.8); Lymphocytes % 7.2 %; Mean Corpuscular HGB Conc 29.4 g/dL (30.0-36.0); Mean Corpuscular Hemoglobin 29.5 pg (28.0-34.0); Mean Corpuscular Volume 100.2 fL (80-94); Monocytes # 0.9 10^3/uL (0.2-0.9); Monocytes % 5.9 %; Neutrophils # 13.29 10^3/uL (1.8-7.7); Neutrophils % 85.8 %; Nucleated Red Blood Cells % 0 %; Platelet Count 255 10^3/cmm (130-400); Red Blood Count 4.61 10^6/uL (4.1-5.3); Red Cell Distribution Width 16.9 % (12.1-15.1); White Blood Count 15.5 10^3/uL (4.0-10.0)
[2020-03-24 05:18] LABS: Alanine Aminotransferase 30 U/L (0-41); Albumin Level 3.5 g/dL (3.5-5.2); Alkaline Phosphatase 140 IU/L (40-130); Anion Gap 15.2 (5-19); Aspartate Amino Transferase 42 U/L (0-40); Blood Urea Nitrogen 64 mg/dL (8-23); Calcium 9.2 mg/dL (8.5-10.5); Carbon Dioxide 29 mmol/L (22-29); Chloride 115 mmol/L (98-107); Globulin 3.2 g/dL (1.3-4.6); Glucose 185 mg/dL (65-115); Osmolality Calculated 343 mOsm/kg (285-295); Potassium 4.2 mmol/L (3.5-5.1); Sodium 155 mmol/L (136-145); Total Bilirubin 1.3 mg/dL (0.15-1.2); Total Protein 6.7 g/dL (6.6-8.7)
[2020-03-24] MEDS: ipratropium-albuterol 3 mL Neb INHALATION ×3 (08:59→20:14)
[2020-03-24] MEDS: budesonide 0.5 mg/2 mL Neb INHALATION ×2 (08:59→20:14)
--- NOTE | 2020-03-24 11:09 | PC.NURSE ---
RN HAS ATTEMPTED TO GIVE PT PO MEDS MULTIPLE BUT, PT IS NOT AWARE ENOUGH TO SAFELY SWALLOW PO MEDS. RN NOTIFIED DR. ALVA.
[2020-03-24 11:23] LABS: Glucose Point of Care 170 mg/dL (70-110)
[2020-03-24] MEDS: haloperidol inj 5 mg/mL INJ 1 mL IM (12:06)
[2020-03-24] MEDS: OLANZapine 10 mg ODT PO (12:07)
[2020-03-24] MEDS: morphine 4 mg/mL SDV 1 mL 2 MG IVP (12:22)
--- NOTE | 2020-03-24 15:00 | P.PN_ITS ---
Subjective Subjective: Interval history: Febrile overnight to 101 ?F. Has more episodes of vomiting while on BiPAP for which this was temporarily removed, placed back on BiPAP again this morning. Patient continues to be lethargic and obtunded. Has not had any meaningful conversation. Intermittently agitated moves both his arms and legs, however no purposeful movements. X-ray of the abdomen revealed ileus. CT of the head did not reveal any acute intracranial pathology. X-ray of the chest performed earlier this evening did not make note of any consolidation. BNP not elevated. Kidney function improved with creatinine to 1.8. Continues to have hypernatremia. 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: unable to assess Urinary Catheter Management^: Rooney: Cath Placed During This Visit: yes Reason for Continuing Indwelling Catheter: Acute Urinary Retention or Obstruction Urinary Catheter Date of Insertion: 03/23/20 Urinary Catheter Time of Insertion: 13:00 Data : 03/24/20 04:26 03/24/20 04:26 Micro: Microbiology 03/23/20 12:45 Blood Culture - Preliminary Blood NEGATIVE TO DATE 03/23/20 11:20 Blood Culture - Preliminary Blood NEGATIVE TO DATE 03/23/20 13:00 Urine Culture - Preliminary Urine Catheterized A&P Assessment and plan (1) Sepsis: meets criteria with fever, leukocytosis, signs of end organ dysfunction by way of NIR, acute hypoxic failure source under investigation CXr with Hazy interstitial infiltrates. Possible etiologies include mild interstitial edema from heart failure and interstitial pneumonia. Noted emesis at [facility], perhaps aspirated, AXR with ileus ongoing emesis overnight , no charted BM, check CT abomen to evalute for possible colitis, diverticulitis blood cx NGTD UA not concerning for UTI Status: Acute Qualifiers: Sepsis type: sepsis due to unspecified organism Sepsis acute organ dysfunction status: with acute organ dysfunction Severe sepsis acute organ dysfunction type: acute renal failure Acute renal failure type: unspecified Severe sepsis shock status: without septic shock Qualified Code(s): A41.9 - Sepsis, unspecified organism; R65.20 - Severe sepsis without septic shock; N17.9 - Acute kidney failure, unspecified (2) Acute renal failure: cr up to 2.9 --> 1.8 Rooney placed monitor I/O 1/2NS @ 50cc/hr to continue Status: Acute Qualifiers: Acute renal failure type: unspecified Qualified Code(s): N17.9 - Acute kidney failure, unspecified (3) Acute hypernatremia: likely 2/2 dehydration given emesis multiple episodes 1/2 NS @ 50cc/hr for noww NPO due to poor mental status Status: Acute (4) Alzheimer's dementia: advanced alzhheimre;s with features of delirium Last admission has protracted delirium which was difficult to control H/o multiple behavior disturbances due to patsy e continue zyprexa 10mg BID, citalopram 40 and quteapine 75 BID. 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 insulin use: with middle or intermediate school principal use Diabetes mellitus complication status: with circulatory complication Diabetes mellitus complication detail: with other circulatory complications Qualified Code(s): E11.59 - Type 2 diabetes mellitus with other circulatory complications; Z79.4 - half-way (current) use of insulin (6) CKD (chronic kidney disease): Status: Acute Qualifiers: Chronic kidney disease stage: unspecified stage Qualified Code(s): N18.9 - Chronic kidney disease, unspecified (7) Hypercapnic respiratory failure: CXR without consolidation , overnight CXR without changes CT chest less likely PE as has been on eliquis ppx on continous BIpap since this morning Status: Acute Additional A&P Information Dispo: D/c back to NH once improving. Tough social situtiaon, recently . Daughter recently deemed not to have capacity to make decisions, has moved to [facility]. Unlikely that patient will be able to return home after this admission, placement back at [facility] will be most appropriate. Overall guarded prognosis given multiple comorbisties and advanced dementia.Will discuss GOC with his sister and lorenzo DNR/DNI per [facility] records and last admission notes DDVT ppx: lovenox Attestations Medical Necessity Statement*: sepsis, needss iv abx, source evalution, hype rcapeic resp failure needing ViPAP Coding Level of Care Code Acute Radiological Equipment Specialist for g Fwd Diagnoses Sepsis A41.9; R65.20; N17.9 Sepsis type: sepsis due to unspecified organism Sepsis acute organ dysfunction status: with acute organ dysfunction Severe sepsis acute organ dysfunction type: acute renal failure Acute renal failure type: unspecified Severe sepsis shock status: without septic shock Acute renal failure N17.9 Acute renal failure type: unspecified Acute hypernatremia E87.0 Alzheimer's dementia G30.1; F02.81 Alzheimer's disease onset: late-onset Dementia behavioral disturbance: with behavioral disturbance Diabetes E11.59; Z79.4 Diabetes mellitus type: type 2 Diabetes mellitus middle or intermediate school principal insulin use: with middle or intermediate school principal use Diabetes mellitus complication status: with circulatory complication Diabetes mellitus complication detail: with other circulatory complications CKD (chronic kidney disease) N18.9 Chronic kidney disease stage: unspecified stage Hypercapnic respiratory failure J96.92
[2020-03-24] MEDS: enoxaparin 40 mg/0.4 mL Syringe SUBCUT (16:22)
[2020-03-24] MEDS: famotidine 20 mg/2 mL INJ IVP (16:23)
[2020-03-24] MEDS: metoprolol tartrate 1 mg/1 mL SDV 5 mL 5 MG IV ×2 (16:43→23:21)
[2020-03-24] MEDS: piperacillin-tazobactam 3.375 GM in sodium chloride 0.9% (plus) 50 ML IV ×2 (16:49→22:54)
[2020-03-24 18:08] LABS: Glucose Point of Care 139 mg/dL (70-110)
--- NOTE | 2020-03-24 19:08 | PC.NURSE ---
PTS NIECE, JAMI CALLED TO CHECK ON HIM, STATED HER MOTHER-ABEL, IS THE PTS NEXT OF KIN. SOMEONE HAD TRIED TO CALL THIS AFTERNOON, THE MOTHER WOULD LIKE FOR US TO COMMUNICATE WITH JAMI. JAMI IS THE ONLY LIVING RELATIVE LISTED ON THE PTS HIPPA. SHE WOULD LIKE A CALL WITH ANY CHANGES.
[2020-03-24 21:57] LABS: Glucose Point of Care 180 mg/dL (70-110)
[2020-03-25] VITALS (20 sets, daily range): BP systolic 112–158; BP diastolic 68–86; PULSE 63–99; RESP 16–22; TEMP 36.1–37.1; O2SAT 89–96
[2020-03-25] MEDS: OLANZapine 10 mg VIAL IM ×3 (00:15→17:30)
[2020-03-25] MEDS: ipratropium-albuterol 3 mL Neb INHALATION ×4 (02:44→21:24)
[2020-03-25] MEDS: piperacillin-tazobactam 3.375 GM in sodium chloride 0.9% (plus) 50 ML IV ×3 (05:06→22:48)
[2020-03-25] MEDS: famotidine 20 mg/2 mL INJ IVP ×2 (05:12→15:38)
[2020-03-25] MEDS: metoprolol tartrate 1 mg/1 mL SDV 5 mL 5 MG IV ×4 (05:12→17:30)
[2020-03-25 07:01] LABS: Glucose Point of Care 185 mg/dL (70-110)
[2020-03-25] MEDS: budesonide 0.5 mg/2 mL Neb INHALATION ×2 (07:35→19:32)
[2020-03-25 11:10] LABS: Glucose Point of Care 170 mg/dL (70-110)
[2020-03-25 13:13] LABS: Glucose Point of Care 151 mg/dL (70-110)
--- NOTE | 2020-03-25 15:07 | CT_ITS ---
WS: [id number] CT CHEST, ABDOMEN AND PELVIS NONCONTRAST. HISTORY: sepsis, evaluate for colitis TECHNIQUE: Contiguous 5 mm axial imaging performed through the chest, abdomen and pelvis without IV c ontrast, oral contrast has not been provided. Coronal and sagittal reformats chest. Coronal and sagit lina reformats through the abdomen and pelvis. All CT scans at [facility] use at least one of these dose optimization techniques: automated exposure control; mA and/or kV adjustment per patie nt size (includes targeted exams where dose is matched to clinical indication); or iterative reconstr uction. CONTRAST: None DLP: 2334.81 mGy.cm COMPARISON: 02/12/2020 Study is limited by breathing motion artifact. Chest CT: Mild haziness over both lungs is exacerbated by motion. Dependent changes and atelectasis a t the lung bases. No improvement since the prior examination. Mild atherosclerosis aorta. Pulmonary a rtery size is enlarged. Coronary artery calcifications and moderate cardiomegaly. No pericardial or p leural effusions. No adenopathy appreciated on this unenhanced exam. Abdomen CT: Normal size liver. No bile duct dilatation. Cholelithiasis without acute cholecystitis. A trophied pancreas. Normal spleen with granulomata. No adrenal mass. Kidneys are slightly atrophy with perinephric stranding. No obstruction. Mild atherosclerosis and ectasia abdominal aorta. No aneurysm . No free fluid or adenopathy. Very mild gaseous distention of the colon. No increase fluid in the small bowel. No obstructive patte rn or significant diverticular disease. Pelvic CT: Rooney catheter present in a nondistended bladder. Mild enlargement of the prostate gland. No adenopathy or free fluid. Thoracic and lumbar spondylitic changes are moderate. Mild bilateral degenerative joint disease at th e hips. No osteoblastic disease. CT/CT chest abd pel wo con IMPRESSION: 1. Dependent changes and mild pneumonitis at the lung bases. Similar to the pr ior study of 02/12/2020. 2. Cholelithiasis without evidence for acute cholecystitis. 3. Mild cardiomegaly. 4. No abscess or adenopathy.
[2020-03-25] MEDS: enoxaparin 40 mg/0.4 mL Syringe SUBCUT (15:38)
[2020-03-25 16:46] LABS: Glucose Point of Care 155 mg/dL (70-110)
--- NOTE | 2020-03-25 17:26 | PM.PN ---
Subjective Subjective: Interval history: Patient continues to be extremely somnolent, does not participate with any meaningful conversation, agitated and on BiPAP. Fidgets making multiple purposeless movements. He is afebrile and hemodynamically stable. CT of the chest abdomen and pelvis did not show any gross consolidation or signs of intra-abdominal abscesses or hydronephrosis. Medications: Reviewed: Yes Vitals/I&O/Wt Last Vital Signs Temp 97.8 F 03/25/20 16:00 Pulse 93 03/25/20 16:00 Resp 18 03/25/20 16:00 BP 158/75 03/25/20 16:00 Pulse Ox 89 L 03/25/20 16:00 03/25/20 03/25/20 03/25/20 06:59 14:59 22:59 Intake Total 50 / 100 50 / 50 Output Total 400 / 1050 Balance -350 / -950 50 / 50 Physical Exam Narrative: EXAM NARRATIVE: GEN: Somnolent, obtunded, fidgets purposelessly CVS: S1S2N RS: CTA B/L Abd: Soft, nt/nd , bs+ ESOL INSTRUCTOR: Moves all extremities while laying in bed Urinary Catheter Management^: Rooney: Cath Placed During This Visit: yes Reason for Continuing Indwelling Catheter: Acute Urinary Retention or Obstruction Urinary Catheter Date of Insertion: 03/23/20 Urinary Catheter Time of Insertion: 13:00 Data : 03/24/20 04:26 03/24/20 04:26 Micro: Microbiology 03/23/20 13:00 Urine Culture - Final Urine Catheterized 03/23/20 12:45 Blood Culture - Preliminary Blood NEGATIVE TO DATE 03/23/20 11:20 Blood Culture - Preliminary Blood NEGATIVE TO DATE A&P Assessment and plan (1) Sepsis: meets criteria with fever, leukocytosis, signs of end organ dysfunction by way of NIR, acute hypoxic failure source under investigation CXr with Hazy interstitial infiltrates. Possible etiologies include mild interstitial edema from heart failure and interstitial pneumonia. CT of the chest did not show any gross consolidation, CT of the abdomen and pelvis similarly without any evidence of colitis intra-abdominal abscesses or hydronephrosis. Continues to have multiple episodes of emesis, may be experiencing gastroenteritis, taken off of BiPAP due to high risk of aspiration with ongoing emesis and BiPAP in place. blood cx NGTD UA not concerning for UTI Currently on empiric treatment with piperacillin tazobactam. Status: Acute Qualifiers: Sepsis type: sepsis due to unspecified organism Sepsis acute organ dysfunction status: with acute organ dysfunction Severe sepsis acute organ dysfunction type: acute renal failure Acute renal failure type: unspecified Severe sepsis shock status: without septic shock Qualified Code(s): A41.9 - Sepsis, unspecified organism; R65.20 - Severe sepsis without septic shock; N17.9 - Acute kidney failure, unspecified (2) Acute renal failure: cr up to 2.9 --> 1.8 Rooney placed monitor I/O Status: Acute Qualifiers: Acute renal failure type: unspecified Qualified Code(s): N17.9 - Acute kidney failure, unspecified (3) Acute hypernatremia: likely 2/2 dehydration given emesis multiple episodes NPO due to poor mental status Status: Acute (4) Alzheimer's dementia: advanced alzhheimre;s with features of delirium Last admission has protracted delirium which was difficult to control H/o multiple behavior disturbances due to patsy e continue zyprexa 10mg BID, citalopram 40 and quteapine 75 BID. prn haldol im additonally if needed Status: Acute Qualifiers: Alzheimer's disease onset: late-onset Dementia behavioral disturbance: with behavioral disturbance Qualified Code(s): G30.1 - Alzheimer's disease with late onset; F02.81 - Dementia in other diseases classified elsewhere with behavioral disturbance (5) Diabetes: ISS Status: Acute Qualifiers: Diabetes mellitus type: type 2 Diabetes mellitus nursing home insulin use: with nursing home use Diabetes mellitus complication status: with circulatory complication Diabetes mellitus complication detail: with other circulatory complications Qualified Code(s): E11.59 - Type 2 diabetes mellitus with other circulatory complications; Z79.4 - supervisor intermediates (current) use of insulin (6) CKD (chronic kidney disease): Status: Acute Qualifiers: Chronic kidney disease stage: unspecified stage Qualified Code(s): N18.9 - Chronic kidney disease, unspecified (7) Hypercapnic respiratory failure: CXR without consolidation , less likely PE as patient has been consistently on anticoagulation with Eliquis Status: Acute Additional A&P Information Dispo: Patient has a tough social situation as his , who was his primary decision maker recently at the custodial. He has 1 daughter who is currently placed under guardianship due to impaired cognition and possible underlying dementia, resides in a nursing facility, therefore will not be an appropriate caregiver for the patient and not in a position to make decisions for the patient. We did contact patient's Sister Sofi and his niece Mary Jo and discussed all updates with them. We also placed a call to the custodial and confirmed that recently while he was at the custodial he remained oriented x1 at best, was completely dependent for his ADLs on caregivers at the custodial. Could not manage his bowel or bladder habits, could not self feed, was disoriented and agitated for the most part. I have seen Mr. Locke on a previous admission on 1123 at which time I had admitted him for COVID-19 infection and ankle fractures. At that time though he was disoriented, he was able to form sentences, completely out of context, was able to initially self feed, attempted to urinate. He has shown significant cognitive decline even since that time to the point of being obtunded now. Discharge to custodial recently and his stay there over the past month has not resulted in any significant overall improvement. I did discuss with his sister and niece that we can continue to treat the sepsis currently, however short-term treatment with antibiotics and addressing individual issues that may come up such as hypoxic respiratory failure, sepsis etc. are unlikely to make any meaningful change to his overall global deterioration. While short-term antibiotics and directed treatments may treat acute issues, I do not believe the treatment of these individual issues will add to his overall quality of life. In keeping with the above, his multiple comorbidities, advancing dementia with persistent delirium, my medical recommendation would be to consider palliative care and focus on symptom management to keep him comfortable as best as possible. His sister is agreeable to the same and patient will likely be transition back to custodial on comfort care measures. She did however want to continue antibiotics at this time and see if any improvement occurs within the next 24 hours or so. We have also discussed that recurrent readmissions to the hospital is also unlikely to add to his quality of life in any meaningful way and he would be best treated at the facility for his symptoms as and when they arise. We have agreed to no further escalation of care at this time. Patient will be maintained on supplemental oxygen, hold off on placing him back on BiPAP. DNR/D[place] per [place] and last admission notes DDVT ppx: lovenox Attestations Medical Necessity Statement*: Continuing IV antibiotics over the next 24 hours, likely transition to comfort care measures tomorrow morning with discharge back to custodial. Coding Level of Care Code Acute Smt Machine Operator for g Fwd Diagnoses Sepsis A41.9; R65.20; N17.9 Sepsis type: sepsis due to unspecified organism Sepsis acute organ dysfunction status: with acute organ dysfunction Severe sepsis acute organ dysfunction type: acute renal failure Acute renal failure type: unspecified Severe sepsis shock status: without septic shock Acute renal failure N17.9 Acute renal failure type: unspecified Acute hypernatremia E87.0 Alzheimer's dementia G30.1; F02.81 Alzheimer's disease onset: late-onset Dementia behavioral disturbance: with behavioral disturbance Diabetes E11.59; Z79.4 Diabetes mellitus type: type 2 Diabetes mellitus long term care administrator insulin use: with long term care administrator use Diabetes mellitus complication status: with circulatory complication Diabetes mellitus complication detail: with other circulatory complications CKD (chronic kidney disease) N18.9 Chronic kidney disease stage: unspecified stage Hypercapnic respiratory failure J96.92
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
[2020-03-25 21:42] LABS: Glucose Point of Care 171 mg/dL (70-110)
[2020-03-26] VITALS (7 sets, daily range): BP systolic 128–178; BP diastolic 71–79; PULSE 63–88; RESP 17–19; TEMP 36.6–36.8; O2SAT 92–98
[2020-03-26] MEDS: piperacillin-tazobactam 3.375 GM in sodium chloride 0.9% (plus) 50 ML IV (04:08)
[2020-03-26] MEDS: famotidine 20 mg/2 mL INJ IVP (04:29)
[2020-03-26] MEDS: metoprolol tartrate 1 mg/1 mL SDV 5 mL 5 MG IV ×2 (04:57→08:29)
--- NOTE | 2020-03-26 04:57 | PC.ADMIT ---
[address] Admission Note: The patient,Wei Locke,84 y/o, was given written information regarding hospital policies, unit procedures and contact persons. Patient's smoking status: unknown if ever smoked. Vital Signs - 8 hr 03/26/20 00:44 03/26/20 04:43 Temperature 97.8 F 98.2 F Pulse Rate 63 85 Respiratory Rate 17 18 Blood Pressure 128/79 144/71 Pulse Oximetry 94 92
--- NOTE | 2020-03-26 05:22 | PC.NURSE ---
Summary Patient was very restless through out night. Kept pulling on telemetry. Has a pressure ulcer on medial sacrum that has optifoam on it. Patient was turned every 2 hours. Can not understand patient when he talks
[2020-03-26] MEDS: haloperidol inj 5 mg/mL INJ 1 mL IM (06:28)
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
[2020-03-26 06:40] LABS: Glucose Point of Care 119 mg/dL (70-110)
[2020-03-26] MEDS: ipratropium-albuterol 3 mL Neb INHALATION (08:28)
[2020-03-26] MEDS: budesonide 0.5 mg/2 mL Neb INHALATION (08:28)
[2020-03-26] MEDS: OLANZapine 10 mg VIAL IM (08:30)
--- NOTE | 2020-03-26 10:01 | PC.SOCIAL ---
IMM Update Pg. 2 of IMM updated with patient's sister over the phone, who verbalized understanding. Copy left at bedside as well.
--- NOTE | 2020-03-26 10:49 | P.DS_ITS ---
Discharge Providers Date of Admission: 03/23/20 11:03 Date of Discharge: March 26, 2020 Attending Provider at Admission: Rizwana Ling MD Attending Provider at Discharge: Rizwana Ling MD Primary Care Provider: Heather Bello MD Diagnoses at Discharge Discharge Diagnosis (1) Sepsis: Status: Acute Qualifiers: Sepsis type: sepsis due to unspecified organism Sepsis acute organ dysfunction status: with acute organ dysfunction Severe sepsis acute organ dysfunction type: acute renal failure Acute renal failure type: unspecified Severe sepsis shock status: without septic shock Qualified Code(s): A41.9 - Sepsis, unspecified organism; R65.20 - Severe sepsis without septic shock; N17.9 - Acute kidney failure, unspecified (2) Acute renal failure: Status: Acute Qualifiers: Acute renal failure type: unspecified Qualified Code(s): N17.9 - Acute kidney failure, unspecified (3) Acute hypernatremia: Status: Acute (4) Alzheimer's dementia: Status: Acute Qualifiers: Alzheimer's disease onset: late-onset Dementia behavioral disturbance: with behavioral disturbance Qualified Code(s): G30.1 - Alzheimer's disease with late onset; F02.81 - Dementia in other diseases classified elsewhere with behavi oral disturbance (5) Diabetes: Status: Acute Qualifiers: Diabetes mellitus type: type 2 Diabetes mellitus middle or intermediate school principal insulin use: with assisted use Diabetes mellitus complication status: with circulatory complication Diabetes mellitus complication detail: with other circulatory complications Qualified Code(s): E11.59 - Type 2 diabetes mellitus with other circulatory complications; Z79.4 - penitentiary (current) use of insulin (6) CKD (chronic kidney disease): Status: Acute Qualifiers: Chronic kidney disease stage: unspecified stage Qualified Code(s): N18.9 - Chronic kidney disease, unspecified (7) Hypercapnic respiratory failure: Status: Acute Reason for Visit Reason for Visit: AMS; SOB Hospital Course Hospital Course 84 year old male with a past medical history of Alzheimer's dementia, CKD, diabetes, hyperlipidemia, hypertension [place] [facility] [place] after presenting with delirium, with acute hypoxic respiratory failure secondary to COVID-19 pneumonia, aspiration pneumonia discharged to SNF on 02/18, never quite recovered his baseline after discharge. He returned on 03/23 from SNF after being found to have fever 103F, multiple episodes of emesis at the facility. He is delirious, unable to answer any questions. Diagnostics in the ER noitable for hypercapneic respiratory failure for which he was started on Bipap, however overall with little improvement in cognition or comfort. Hospital course as below: # Sepsis: meets criteria with fever, leukocytosis, signs of end organ dysfunction by way of NIR, acute hypoxic hypercapneic failure. Possible etiologies include mild interstitial edema from heart failure and interstitial pneumonia. CT of the chest did not show any gross consolidation, CT of the abdomen and pelvis similarly without any evidence of colitis intra-abdominal abscesses or hydronephrosis. possible viral gastroenteritis could not be excluded. Continued to have multiple episodes of emesis, may be experiencing gastroenteritis, taken off of BiPAP due to high risk of aspiration with ongoing emesis and BiPAP in place. blood cx NGTD UA not concerning for UTI received empiric treatment with piperacillin tazobactam,transitioned to augmentin for 2 remaining days to complete empiric 5 day course. # acute renal failure cr up to 2.9 --> 1.8 # Alzheimer's dementia: advanced alzhheimr's with features of delirium Last admission had protracted delirium which was difficult to control H/o multiple behavior disturbances due to same continued zyprexa 10mg BID, citalopram 40 and quteapine 75 BID. prn haldol im # CKD Dispo: Patient has a tough social situation as his , who was his primary decision maker recently at the intermediate. He has 1 daughter who is currently placed under guardianship due to impaired cognition and possible underlying dementia, resides in a nursing facility, therefore will not be an appropriate caregiver for the patient and not in a position to make decisions for the patient at this time. We did contact patient's Sister Sofi and his niece aMry Jo and discussed all updates with them. We also placed a call to the intermediate and confirmed that recently while he was at the intermediate he remained oriented x1 at best, was completely dependent for his ADLs on caregivers at the intermediate. Could not manage his bowel or bladder habits, could not self feed, was disoriented and agitated for the most part. I have seen Mr. Locke on a previous admission on 02/11 at which time I had admitted him for COVID-19 infection and ankle fractures. At that time though he was disoriented, he was able to form sentences, completely out of context, was able to initially self feed, attempted to urinate,unzip his pants, etc. He has shown significant cognitive decline even since that time to the point of being obtunded now. Discharge to intermediate recently and his stay there over the past month has not resulted in any significant overall improvement. I did discuss with his sister and niece that we can continue to treat the sepsis currently, however short-term treatment with antibiotics and addressing individual issues that may come up such as hypoxic respiratory failure, sepsis etc. are unlikely to make any meaningful change to his overall global deterioration. While short-term antibiotics and directed treatments may treat acute issues, I do not believe the treatment of these individual issues will add to his overall quality of life. In keeping with the above, his multiple comorbidities, advancing dementia with persistent delirium, my medical recommendation would be to consider palliative care and focus on symptom management to keep him comfortable as best as possible. His sister is agreeable to the same and patient is being transitioned back to intermediate on comfort care measures. She did however want to continue antibiotics therefore an empiric 5 day course has been planned. We have also discussed that recurrent readmissions to the hospital is unlikely to add to his quality of life in any meaningful way and he would be best treated at SNF for his symptoms as and when they arise as far as possible. Patient will be maintained on supplemental oxygen for comfort, held off on placing him back on BiPAP. Physical Exam Narrative: EXAM NARRATIVE: GEN: Somnolent, obtunded, fidgets purposelessly CVS: S1S2N RS: CTA B/L Abd: Soft, nt/nd , bs+ PUBLIC POLICY MEDIATOR: Moves all extremities while laying in bed Urinary Catheter Management^: Rooney: Cath Placed During This Visit: yes Reason for Continuing Indwelling Catheter: Hospice/Comfort/Palliative Care Urinary Catheter Date of Insertion: 03/23/20 Urinary Catheter Time of Insertion: 13:00 Discharge Data Data Completed and Pending: Completed Studies During Hospitalization Category Date Time Status CT chest abd pel wo con Routine Cat Scan 03/25/20 15:[address] head wo con* 7 0450 Urgent Cat Scan 03/23/20 12:38 Completed XR abdomen 1V* 74 018 Routine Exams 03/23/20 12:32 Completed XR chest 1V ambreen ble [id number] Stat Exams 03/23/20 09:33 Completed XR chest 1V ambreen ble [id number] Stat Exams 03/24/20 00:18 Completed Pending at discharge Category Date Time Status Blood Culture Sta t Lab 03/23/20 12:45 Results Labs from last 24 hours 03/26/20 03/25/20 03/25/20 06:07 21:01 16:39 POC Glucose 119 H 171 H 155 H 03/25/20 03/25/20 13:06 10:41 POC Glucose 151 H 170 H Vitals: Last Vital Signs Temp 98.3 F 03/26/20 08:00 Pulse 88 03/26/20 08:37 Resp 17 03/26/20 08:27 BP 163/74 03/26/20 08:00 Pulse Ox 92 03/26/20 08:27 Discharge Plan Discharge Patient Disposition: Xfer SNF Condition: Serious Prescriptions: New morphine 10 mg/5 mL solution 5 mg buccal Q3H PRN (Reason: pain) Qty: 100 RF: 0 amoxicillin-pot clavulanate [Augmentin] 875-125 mg tablet 1 tab PO BID 2 Days Qty: 4 RF: 0 Continued citalopram 40 mg tablet 40 mg PO DAILY@08 RF: 0 quetiapine 25 mg Tablet 75 mg PO BID@08,20 RF: 0 albuterol sulfate 0.63 mg/3 mL Solution For Nebulization 0.63 mg INHALATION Q6H PRN (Reason: Shortness Of Breath) RF: 0 Tylenol 325 mg Tablet 650 mg PO Q6H PRN (Reason: Pain) RF: 0 olanzapine 10 mg Tablet 10 mg PO BID@08, RF: 0 Ativan 0.5 mg Tablet 0.5 mg PO TID@,, RF: 0 Enema Disposable 19-7 gram/118 mL Enema 118 ml RI DAILY PRN (Reason: Constipation) RF: 0 Risperdal 0.5 mg Tablet 0.5 mg PO BID@08,20 RF: 0 Discontinued donepezil 10 mg tablet 10 mg PO DAILY@08 RF: 0 lovastatin 10 mg tablet 5 mg PO DAILY@20 RF: 0 allopurinol 300 mg tablet 300 mg PO DAILY@08 RF: 0 lisinopril 2.5 mg tablet 2.5 mg PO DAILY@08 RF: 0 metformin 500 mg Tablet 500 mg PO DAILY@08 RF: 0 clonidine HCl 0.1 mg Tablet 0.1 mg PO BID@08,20 RF: 0 aspirin [Aspir-81] 81 mg Tablet,Delayed Release (Dr/Ec) 81 mg PO DAILY@08 RF: 0 magnesium hydroxide [Milk of Magnesia] 400 mg/5 mL Suspension 30 ml PO PRN RF: 0 Eliquis 2.5 mg Tablet 2.5 mg PO BID@08,20 RF: 0 Prostat Liquid 30 ml PO BID@08,20 RF: 0 Discharge Orders: Discharge Order (Routine); Ordered 03/26/20 Ordered By: Rizwana Ling Referrals: [facility] [Outside] Heather Bello MD [Primary Care Provider] - Discharge Diet: Advance as tolerated and Soft Mechanical Discharge Activity: Resume usual activity and Increase activity as tolerated Patient Instructions: Morphine, Slow Release (By mouth) Activity Restrictions/Additional Instructions: transitioned to SNF with comfort care measures after discussion with sister Sofi and cinthia aCmargo Discharge Attestations Time Spent in Discharge Care*: greater than 30 min Specific Discharge Activities: educating and/or supporting family/caregiver, discussing with pcp/other providers, discussing with caseworker/social workers/dc planners, documenting/other paperwork and evaluating patient/reviewing data Quality Metrics Clinical Quality Measures During this hospital stay, did patient experience: None Coding Level of Care Code Acute Office Helper Clerical for [facility] Fwd Diagnoses Sepsis A41.9; R65.20; N17.9 Sepsis type: sepsis due to unspecified organism Sepsis acute organ dysfunction status: with acute organ dysfunction Severe sepsis acute organ dysfunction type: acute renal failure Acute renal failure type: unspecified Severe sepsis shock status: without septic shock Acute renal failure N17.9 Acute renal failure type: unspecified Acute hypernatremia E87.0 Alzheimer's dementia G30.1; F02.81 Alzheimer's disease onset: late-onset Dementia behavioral disturbance: with behavioral disturbance Diabetes E11.59; Z79.4 Diabetes mellitus type: type 2 Diabetes mellitus assisted insulin use: with assisted use Diabetes mellitus complication status: with circulatory complication Diabetes mellitus complication detail: with other circulatory complications CKD (chronic kidney disease) N18.9 Chronic kidney disease stage: unspecified stage Hypercapnic respiratory failure J96.92
[2020-03-26 10:52] LABS: Glucose Point of Care 131 mg/dL (70-110)
== END 2020-03-26 13:30 | disposition skilled nursing facility (03) | DRG 871 ==
LOC: ER 12:52 → MEDSURG 14:09
PROVIDERS: Internal Medicine; Admitting Provider Student in an Organized Health Care Education/Training Program; Emergency Provider Emergency Medicine; PCP Family Medicine; Visit Provider Student in an Organized Health Care Education/Training Program
DX: A41.9 Sepsis, unspecified organism (principal); J96.01 Acute respiratory failure with hypoxia; J96.92 Respiratory failure, unspecified with hypercapnia; F05 Delirium due to known physiological condition; N17.9 Acute kidney failure, unspecified; E87.0 Hyperosmolality and hypernatremia; K56.7 Ileus, unspecified; R65.20 Severe sepsis without septic shock; G30.9 Alzheimer's disease, unspecified; F02.80 Dementia in other diseases classified elsewhere, unspecified severity, without behavioral disturbance, psychotic disturbance, mood disturbance, and anxiety; Z86.16 Personal history of COVID-19; E11.22 Type 2 diabetes mellitus with diabetic chronic kidney disease; I12.9 Hypertensive chronic kidney disease with stage 1 through stage 4 chronic kidney disease, or unspecified chronic kidney disease; N18.9 Chronic kidney disease, unspecified; E78.5 Hyperlipidemia, unspecified; Z87.01 Personal history of pneumonia (recurrent); Z66 Do not resuscitate; Z79.51 Long term (current) use of inhaled steroids
CPT/HCPCS: 12345; 36415; 36416; 36600; 51702; 70450; 71045; 71250; 74018; 74176; 80053; 81001; 82803; 82805; 82962; 83605; 83880; 84145; 84484; 85025; 87040; 87086; 93005; 94640; 94660; 94664; 96372; 99282; 99291; J1630; J1650; J1815; J1956; J2060; J2270; J2405; J2543; J2920; J3490; J7030; J7626